=== PATIENT | female | born 1940 | race Caucasian/White ===

== ENCOUNTER 2016-12-03 06:16 | Inpatient (IN) ==
[2016-12-03] MEDS ORDERED: ORPHENADRINE SR 100 MG TABLET PO ONE (07:10)
[2016-12-03] MEDS ORDERED: Oxycodone/Acetaminophen 5/325 1 TAB PO ONE (08:00)
--- NOTE | 2016-12-03 08:01 | XRay Report ---
Indication: Left hip PAIN POST FALL PROCEDURE: XR hip LT min 2V: Encounter: Initial Comparison: None Findings: Mildly impacted fracture of the subcapital left femoral neck. Bony demineralization. No additional acute fracture or dislocation seen. Impression: Closed posttraumatic left femoral neck fracture. .
--- NOTE | 2016-12-03 08:02 | XRay Report ---
Indication: fall with left knee pain PROCEDURE: XR knee LT 3V: Encounter: Initial Comparison: None Findings: There is no acute fracture, dislocation or malalignment identified. Impression: No acute osseous abnormality. .
[2016-12-03] MEDS ORDERED: NS 1,000 ML IV ONE (09:59)
[2016-12-03] MEDS ORDERED: SALINE FLUSH 10ml SYRINGE IVF PRN (09:59)
--- NOTE | 2016-12-03 12:16 | Emergency Department Report ---
Fall HPI - General Chief Complaint: Fall Stated Complaint: fell in bathroom left knee pain - History of Present Illness HPI Narrative: 76-year-old female, fell going into the bathroom. Patient landed on left leg. Unable to stand or bear weight after falling. EMS was contacted and transported her in. Pain is 8 out of 10 if left leg is moved, 4 out of 10 at rest. No previous fracture on that side. - Related Data Home Medications Medication Instructions Recorded Confirmed Cholecalciferol (Vitamin D3) 1 cap PO DAILY #0 03/05/16 12/03/16 [Vitamin D3] Ropinirole HCl 3 tab PO HS #0 tab 03/05/16 12/03/16 Vitamin E (Dl,Tocopheryl Acet) 1 cap PO DAILY #0 03/05/16 12/03/16 [Vitamin E] Previous Rx's Medication Instructions Recorded Tramadol HCl 1 - 2 tab PO Q6H PRN #20 tab 03/05/16 Acetaminophen [Tylenol] 650 mg PO TID tab 12/06/16 Enoxaparin Sodium [Lovenox] 40 mg SQ Q24H 29 Days syringe 12/06/16 Milk of Magnesia [Mom] 30 ml PO DAILY PRN udc 12/06/16 Oxycodone *IR* [Roxicodone *Ir*] 5 mg PO QID PRN #20 tab 12/06/16 PEG 3350 17gm PACKET [Miralax] 17 gm PO DAILY packet 12/06/16 Senna + Docusate [Senna Plus 2 tab PO BID tab 12/06/16 Tablet] Allergies Allergy/AdvReac Type Severity Reaction Status Date / Time No Known Allergies Allergy Verified 12/03/16 06:41 Review of Systems All systems: reviewed and negative except as stated PFSH Patient Stated Medical History Parkinson's Disease Yes Cataracts Yes Other Respiratory Yes: 'CHRONIC COUGH FOR 30 YEARS' Surgical History: Hysterectomy - Social History Smoking status: Never smoker second hand exposure: No Substance use type: does not use Physical Exam - Limitations Limitations: no limitations - General General appearance: alert, in distress (pain if leg is moved. Left leg is externally rotated as patient is lying supine) - Normal Exams: Head:: Normocephalic without trauma Chest/Respirations:: Clear all marinelli, with good airflow, and symmetry bilaterally Cardiovascular:: Regular rate and rhythm, without murmur or gallop, Pulses 2+ all extremities, capillary refill, <2 seconds all extremities Abdomen:: Bowel sounds positive, soft, non-tender, non-distended, no hepatosplenomegaly, masses or bruits noted Neurological:: Patient is alert, and oriented, cranial nerves, motor/sensory/ cerebellar, exams w/o gross deficits, to observation - Expanded Lower Extremity Exam Hip/Pelvis exam: Present: tenderness, external rotation (left) Course Vital Signs Temperature 97.4 F 12/03/16 06:22 Pulse Rate 72 12/03/16 06:22 Respiratory Rate 16 12/03/16 06:22 Blood Pressure 133/60 12/03/16 06:22 Pulse Oximetry 93 12/03/16 06:22 Temperature 96.9 F 12/06/16 12:15 Pulse Rate 84 12/06/16 12:15 Respiratory Rate 16 12/06/16 12:15 Blood Pressure 162/71 H 12/06/16 12:15 Pulse Oximetry 94 12/06/16 12:15 Fall - [facility] Narrative Medical decision making narrative: X-ray of hip and pelvis obtained. Impacted left femoral neck fracture noted. Labs reviewed as well as medical record. Orthopedics contacted and will accept patient for admission. Patient initially did not want any IV medication, wanted to try something very mild. Therefore she was given Norflex 100 mg and Percocet 5 mg tablet. This did not control her pain. She was then given 0.25 mg Dilaudid IV and became much more comfortable. Patient was also given 1 L normal saline fluid resuscitation while in the ED. - Medical Records Attestation: I reviewed the patient's medical records. - Lab Data Attestation: I reviewed the patient's lab results. Result diagrams: 12/06/16 04:04 12/06/16 04:04 Lab Results 12/03/16 12/03/16 12/03/16 Range/Units 09:49 09:49 11:18 WBC 11.4 H (4.5-11.0) T/MM3 RBC 3.82 L (4.00-5.20) M/MM3 Hgb 12.2 (12-16) GM/DL Hct 36.4 (36-46) % MCV 95.3 (80-100) UM3 MCH 31.9 (26-34) UUG MCHC 33.5 (31-37) GM/DL RDW Std Deviation 42.4 (36.9-50.2) FL Plt Count 193 (130-400) T/MM3 MPV 10.7 (9.4-12.4) UM3 Immature Gran % (Auto) 0.2 (0.0-0.5) % Neut % (Auto) 83.9 H (33-66) % Lymph % (Auto) 8.8 L (23-45) % [place] % (Auto) 6.4 (0-9.0) % Eos % (Auto) 0.5 (0-4) % Baso % (Auto) 0.2 (0-2) % Neut # (Auto) 9.6 H (1.8-7.7) T/MM3 Lymph # (Auto) 1.0 (1-4.8) T/MM3 [place] # (Auto) 0.7 (0-0.8) T/MM3 Eos # (Auto) 0.1 (0-0.5) T/MM3 Baso # (Auto) 0.0 (0-0.2) T/MM3 Abs Immat Gran (auto) 0.02 (0.00-0.03) T/MM3 Turbidity < 20 (0-20) Sodium 142 (134-144) MEQ/L Potassium 3.8 (3.6-5) MEQ/L Chloride 109 H (98-107) MEQ/L Carbon Dioxide 23 (22-30) MEQ/L Anion Gap 10 (5-15) MEQ/L BUN 20.0 H (7-17) MG/DL Creatinine 0.6 L (0.7-1.2) MG/DL GFR Calculation 97 BUN/Creatinine Ratio 33 H (6-26) RATIO Glucose 112 H (65-110) MG/DL Calculated Osmolality 277 (261-280) MOSM/KG Calcium 9.2 (8.4-10.2) MG/DL Total Bilirubin 0.90 (0.20-1.30) MG/DL Icterus Index < 2 (0-7) AST 51 H (14-36) U/L ALT 94 H (9-52) U/L Alkaline Phosphatase 142 H (38-126) U/L Total Protein 6.8 (6.3-8.2) G/DL Albumin 3.7 (3.5-5.0) G/DL Globulin 3.1 (2.4-3.6) G/DL Albumin/Globulin Ratio 1.2 (1.1-2.2) RATIO Specimen Hemolysis < 15 (0-25) Ur Collection Type Urine, clean catch Urine Color Yellow (YELLOW) Urine Clarity Clear Urine pH 5.5 (5.0-8.0) Ur Specific [place] >=1.030 H (1.015-1.025) Urine Protein Negative (NEGATIVE) Urine Glucose (UA) Negative (NEGATIVE) Urine Ketones 1+ A (NEGATIVE) Urine Occult Blood Negative (NEGATIVE) Urine Nitrate Negative (NEGATIVE) Urine Bilirubin Negative (NEGATIVE) Urine Urobilinogen 0.2 (NORMAL) EU/DL Ur Leukocyte Esterase Negative (NEGATIVE) Urinalysis Comment Microscopic not ind. - Radiology Data Attestation: I reviewed the patient's radiology results. Disposition Clinical Impression: FEMUR FRACTURE Disposition: 02 To [facility] [place] Care Condition: Stable Time of Disposition: 10:20 - Seen By: physician
[2016-12-03] MEDS ORDERED: HYDROMORPHONE 2 MG/ML INJECTION IVP PRN (13:16)
--- NOTE | 2016-12-03 14:19 | History & Physical Report ---
<Katia Araujo - Last Filed: 12/03/16 14:16> History of Present Illness Date: 12/03/16 Chief complaint: left hip pain HPI: Yari Rae is a 76-year-old woman who lost her balance and fell at approximately 0530 this morning after arriving in the bathroom. She lost her balance, which is not terribly unusual for her given her underlying Parkinson' s. She tends to lose her balance frequently, but hasn't had a fall since last February, which resulted in a left shoulder fracture that did not require surgical fixation. She also has a history of feeling lightheaded and dizzy, but states that this morning she simply lost her balance. She tried grabbing a hold of shelving above the toilet, but this pulled away from the wall and landed on top of her after she fell. She states that she landed on her left hip. She did not lose consciousness. She denies any other injuries from the fall. At first, she did not have much pain, but she was unable to get up or bear any weight on her left hip. Ultimately, her called 911 and she was transported to [facility] emergency department. Here, hip x-ray showed a left hip fracture. Left knee x-ray was negative for acute fracture. CBC revealed mild anemia with a hemoglobin of 12.2. Basic chemistries were unremarkable, however, liver enzymes were mildly elevated. Urinalysis was negative for UTI. Dr. Adair was consulted, and recommended hospital admission and plans for surgery on 12/04. The hospitalist service was also consulted for admission. She was placed into inpatient admission status and is expected that she will require more than 2 nights of hospitalization. Review of systems otherwise was positive for a chronic cough for the last 30 years, and workups have been entirely negative. She states that her right leg, occasionally swells, which is also chronic. She also states she has muscle spasms and cramps in her legs each night, and takes apple cider vinegar along with her ropinirole, which helps control the spasms. The remainder review of systems was negative. Review of Systems - Constitutional Constitutional: Present: weight loss (none recent - lost a few lbs after her right hip replacement and never regained the weight). Absent: fever(s), headache(s) - EENMT Eyes: Absent: change in vision Balance: Absent: falling to one side Nose: Absent: obstruction Mouth/Throat: Absent: sore throat - Cardiovascular Cardiovascular: Absent: chest pain, syncope, dyspnea on exertion, orthopnea Vascular: Absent: unilateral swelling - Respiratory Respiratory: Present: cough (chronic nonproductive cough x 30 years). Absent: dyspnea on exertion - Gastrointestinal Gastrointestinal: Absent: abdominal pain, constipation, diarrhea, nausea, vomiting - Genitourinary Genitourinary: Absent: dysuria, urinary frequency, urinary urgency - Musculoskeletal Musculoskeletal: Present: abnormal gait (loses balance easily due to Parkinson's ), muscle cramps (b/l legs especially at night) - Integumentary/Breasts Integumentary: Absent: rash, wounds - Neurological Neurological: Present: abnormal gait, dizziness, restless legs. Absent: abnormal speech, frequent falls, paresthesias - Psychiatric Psychiatric: Absent: anxiety - Endocrine Endocrine: Absent: palpitations - Hematologic/Lymphatic Hematologic/Lymphatic: Absent: easy bruising (used to bruise easily but that has improved) - Allergic/Immunologic Allergic/Immunologic: Absent: seasonal rhinorrhea PFSH Parkinson's Restless leg syndrome. Low blood pressure. Chronic cough. Surgical History: Right hip replacement (04/2014) in [place]. Uterine surgery for endometriosis and appendectomy in 1965. D&C Family History: Father of emphysema, but was not a smoker. Her mother of old age at age 89 Sister of brain cancer at age 83. Brother is still living with stomach cancer, age 88. Another sister is still alive at age 81, and she has osteoarthritis - Social History Smoking status: Never smoker Substance use type: does not use Alcohol intake frequency: holidays/special occasions only (wine) Housing: other (independent living at [facility]) Household members: spouse Current occupational status: retired Previous occupational history: accounting, book keeping Current residence: Independent Living Social history: Primary care physician: Dr. Werner Barahona Medications Home Medications Medication Instructions Recorded Confirmed Type Cholecalciferol (Vitamin D3) 1 cap PO DAILY #0 03/05/16 12/03/16 History [Vitamin D3] Ropinirole HCl 3 tab PO HS #0 tab 03/05/16 12/03/16 History Vitamin E (Dl,Tocopheryl Acet) 1 cap PO DAILY #0 03/05/16 12/03/16 History [Vitamin E] Allergies Allergy/AdvReac Type Severity Reaction Status Date / Time No Known Allergies Allergy Verified 12/03/16 06:41 Exam Vital Signs: Temperature 97.4 F 12/03/16 06:22 Pulse Rate 86 12/03/16 13:30 Respiratory Rate 18 12/03/16 10:15 Blood Pressure 156/71 H 12/03/16 13:30 Pulse Oximetry 95 12/03/16 13:00 - Constitutional Present: mild distress, well nourished, well developed, thin - Routine HEENT Exam Head: Present: normocephalic Eye: Present: PERRL. Absent: conjunctival icterus, scleral injection ENT: Present: mucous membranes moist, oropharynx clear - Routine Neck Exam Present: supple - Routine Respiratory Exam Present: CTA bilaterally - Routine Cardiovascular Exam Present: RRR, S1, S2 - Routine Abdominal Exam Present: soft, normoactive bowel sounds, non distended, non tender - Routine Extremities Exam Present: no edema, pulses intact, normal capillary refill Comments: limited ROM left hip b/l thigh muscle spasms - Routine Skin Exam Present: intact, dry - Routine Neurological Exam Present: alert, oriented X3, CN II-XII intact - Routine Psychiatric Exam Present: normal thought process, cooperative Results - Labs CBC & Chem 7: 12/03/16 09:49 12/03/16 09:49 - Imaging and Cardiology left hip x-ray Status: image reviewed by me (impacted left femoral neck fx) left knee x-ray Status: image reviewed by me (negative) Assessment and Plan (1) Closed subcapital fracture of left femur Current visit: Yes Status: Acute DVT Prophylaxis: SCD's, Lovenox Resuscitation Status: Do Not Resuscitate Assessment and Plan: Assessment. Left subcapital hip fracture status post fall. Mild normocytic anemia. Elevated liver enzymes, present on admission. Parkinson's. Restless leg syndrome. Low blood pressure, chronic. Chronic cough. Plan. Admit to inpatient status under the hospitalist service. Dr. Adair has been consulted and plans on surgical fixation tomorrow. Diet: Regular, nothing by mouth at midnight. Prophylaxis: SCDs, and will give Lovenox today 1. Will need to resume Lovenox postoperatively. Pain control: Dilaudid low-dose. Patient reports she is very sensitive to pain medication and anesthesia. She has difficulty waking up after surgery. Insert Askew catheter secondary to severe hip pain. Remove as soon as possible. Will obtain chest x-ray and EKG preoperatively. Contacted Dr. Barahona's office, and labs have been sent over from June 2016. At that time, hemoglobin was 12.8, chemistries were stable, TIBC was 312, serum iron was 113 and iron saturation was 36%, serum ferritin was 183. Liver enzymes were not done since she has moved to [place] 2 years ago. Advanced directives: Riccardo is DPOA; she does have a living will; CODE STATUS was discussed and she requests DO NOT RESUSCITATE status. Discharge plans: She would like to stay in [place] and go back to [facility] for her rehabilitation. Discussed with ED physician, Dr. Pizano, Dr. Adair, Dr. Smith, and nursing staff. Hospital Course Summary Disclaimer: The visit summary below is not to be considered part of the above Progress Note. Hospital Course: Assessment. Left subcapital hip fracture status post fall. Mild normocytic anemia. Elevated liver enzymes, present on admission. Parkinson's. Restless leg syndrome. Low blood pressure, chronic. Chronic cough. Plan. Admit to inpatient status under the hospitalist service. Dr. Adair has been consulted and plans on surgical fixation tomorrow. Diet: Regular, nothing by mouth at midnight. Prophylaxis: SCDs, and will give Lovenox today 1. Will need to resume Lovenox postoperatively. Pain control: Dilaudid low-dose. Patient reports she is very sensitive to pain medication and anesthesia. She has difficulty waking up after surgery. Insert Askew catheter secondary to severe hip pain. Remove as soon as possible. Will obtain chest x-ray and EKG preoperatively. Contacted Dr. Barahona's office, and labs have been sent over from June 2016. At that time, hemoglobin was 12.8, chemistries were stable, TIBC was 312, serum iron was 113 and iron saturation was 36%, serum ferritin was 183. Liver enzymes were not done since she has moved to [place] 2 years ago. Advanced directives: Riccardo is DPOA; she does have a living will; CODE STATUS was discussed and she requests DO NOT RESUSCITATE status. Discharge plans: She would like to stay in [place] and go back to [facility] for her rehabilitation. Discussed with ED physician, Dr. Pizano, Dr. Adair, Dr. Smith, and nursing staff. <SarahSharon - Last Filed: 12/03/16 16:35> History of Present Illness Date: 12/03/16 Exam Vital Signs: Temperature 97.4 F 12/03/16 06:22 Pulse Rate 86 12/03/16 13:30 Respiratory Rate 18 12/03/16 10:15 Blood Pressure 156/71 H 12/03/16 13:30 Pulse Oximetry 95 12/03/16 13:00 Results - Labs CBC & Chem 7: 12/03/16 09:49 12/03/16 09:49 Assessment and Plan (1) Closed subcapital fracture of left femur Current visit: Yes Status: Acute Assessment and Plan: I have independently evaluated and examined this patient. I reviewed the chart, the patient's history, and the PULP COOKER/PA's documented findings as above. We discussed and formulated the assessment and plan as above with additions as below: Mrs. Rae had fall from standing as described above after losing her balance when up to the bathroom early this morning. She is not aware of any injuries other than the left hip. She's having significant spasms in her left leg and describes spasms as bigger issue than pain. She's had several past falls which she attributes to combination of Parkinson's disease and low blood pressure. Interestingly she reports that Parkinson's only affects her right arm and right leg. Examination demonstrates the patient to be alert and in no distress at the time of my assessment. She has minor tremor at rest involving the right hand and increased muscle tone with cogwheeling with repetitive movements of the right wrist. Cogwheeling was not present at the left wrist. Respirations are nonlabored with clear breath sounds although air flow is diminished. Cardiac rhythm regular with normal S1 and S2 Abdomen soft Ankles without edema Sensation intact 4 extremities and patient is able to wiggle toes and both legs EKG reviewed by myself demonstrating incomplete right bundle branch block but no acute ST/T-wave changes X-rays of the left knee, pelvis, and left hip have been reviewed by myself demonstrating an impacted subcapital left femoral neck fracture and constipation. Chest x-ray has also been reviewed by myself and is unremarkable other than old humeral head deformity on the left. Minor elevation of transaminases as noted-outpatient labs reviewed from June of this year did not include liver enzymes so no baseline for comparison. Medically stable for surgical repair of left hip. Continue medications for Parkinson/restless leg syndrome in addition to medications for pain/nausea. Initiate IV fluids. Discussed with Dr. Pizano. Hospital Course Summary Disclaimer: The visit summary below is not to be considered part of the above Progress Note.
[2016-12-03] MEDS ORDERED: ENOXAPARIN 40 MG/0.4 ML INJECTION SQ ONE ×2 (14:43→15:12)
--- NOTE | 2016-12-03 15:31 | Orthopedic Consult Note ---
Orthopedic Consultation HPI - Consultation Info Consult Date: 12/03/16 Attending Physician: Fay Adair MD Consult Reason: fracture (Left hip) - History of Present Illness Mrs. Rae is a 76 year old female with Parkinson's who fell this AM while walking to the restroom. She denies hitting her head. She had immediate left hip pain and was unable to bear weight. EMS transported her to [facility] ER where x- rays showed a left hip subcapital femoral neck fracture. She was admitted to the hospitalist service. Dr. Adair was consulted for definitive surgical management and is planning an endoprosthesis 12/04/16. She had walked independently, but stated she was fairly reliant on hanging on to her . Review of Systems - Constitutional Constitutional: Absent: headache(s) - EENT Eyes: Absent: blurry vision Ears, nose, mouth, throat: Absent: head injury - Cardiovascular Cardiovascular: Absent: chest pain Vascular: Absent: pallor of an extermity - Respiratory Respiratory: Absent: cough - Gastrointestinal Gastrointestinal: Absent: abdominal pain - Genitourinary Genitourinary General: Absent: chills, fever(s) - Musculoskeletal Musculoskeletal: Present: joint pain, other Additional comments: she has a know right leg length discrepancy secondary to a previous right hip fracture. - Integumentary/Breasts Integumentary: Absent: wounds - Neurological Neurological: Present: frequent falls Comments: has Parkinson's and often trips. - Endocrine Endocrine: Present: cold intolerance [facility] Surgical History: Right hip replacement (04/2014) in [place]. Uterine surgery for endometriosis and appendectomy in 1965. D&C - Social History Smoking status: Never smoker Current residence: Independent Living Medications Home Medications Medication Instructions Recorded Confirmed Type Cholecalciferol (Vitamin D3) 1 cap PO DAILY #0 03/05/16 12/03/16 History [Vitamin D3] Ropinirole HCl 3 tab PO HS #0 tab 03/05/16 12/03/16 History Vitamin E (Dl,Tocopheryl Acet) 1 cap PO DAILY #0 03/05/16 12/03/16 History [Vitamin E] Allergies Allergy/AdvReac Type Severity Reaction Status Date / Time No Known Allergies Allergy Verified 12/03/16 06:41 Orthopedic Exam Vital signs: Temperature 97.4 F 12/03/16 06:22 Pulse Rate 86 12/03/16 13:30 Respiratory Rate 18 12/03/16 10:15 Blood Pressure 156/71 H 12/03/16 13:30 Pulse Oximetry 95 12/03/16 13:00 - Constitutional General Appearance: Present: alert, orientated x3, thin - Respiratory Exam Present: non-labored - Cardiovascular Exam Present: pedal pulses intact Capillary Refill: < 2-3 Seconds - Abdominal Exam Absent: tenderness - Extremities Exam Present: no edema, pulses intact, normal capillary refill - Hip Exam left Hip Exam: Present: tender over trochanter, decreased ROM (felxion), decreased ROM (rotation), painful PROM - Integumentary Exam Present: pink, warm, dry, intact - Lymphatic Lymphatic: Absent: lymphedema - Neurological Exam Present: intact to light touch, no deficits - Psychiatric Exam Present: alert, oriented - Labs Result Diagrams: 12/03/16 09:49 12/03/16 09:49 Impression and Recommendation (1) Closed subcapital fracture of left femur Current visit: Yes Qualifiers: Encounter type: initial encounter Qualified Code(s): S72.012A - Unspecified intracapsular fracture of left femur, initial encounter for closed fracture Status: Acute May eat tonight. NPO after midnight Left hip endoprosthesis planned for 12/04/[address] Adair Consent to be signed Risks and benefits of the recommended procedure were discussed with the patient and/or patient's legal benefits representative. They include: infection, nerve damage, artery damage, stroke, IN, PE, DVT, ileus, continued pain, or risk that the injury may not heal despite surgery. There are also medical risks of anesthesia. Risks are not limited to the above mentioned alone. Possibility of leg length discrepancy was discussed. Hospital Course Summary Disclaimer: The visit summary below is not to be considered part of the above Progress Note. Hospital Course: Assessment. Left subcapital hip fracture status post fall. Mild normocytic anemia. Elevated liver enzymes, present on admission. Parkinson's. Restless leg syndrome. Low blood pressure, chronic. Chronic cough. Plan. Admit to inpatient status under the hospitalist service. Dr. Adair has been consulted and plans on surgical fixation tomorrow. Diet: Regular, nothing by mouth at midnight. Prophylaxis: SCDs, and will give Lovenox today 1. Will need to resume Lovenox postoperatively. Pain control: Dilaudid low-dose. Patient reports she is very sensitive to pain medication and anesthesia. She has difficulty waking up after surgery. Insert Askew catheter secondary to severe hip pain. Remove as soon as possible. Will obtain chest x-ray and EKG preoperatively. Contacted Dr. Barahona's office, and labs have been sent over from June 2016. At that time, hemoglobin was 12.8, chemistries were stable, TIBC was 312, serum iron was 113 and iron saturation was 36%, serum ferritin was 183. Liver enzymes were not done since she has moved to [place] 2 years ago. Advanced directives: Riccardo is DPOA; she does have a living will; CODE STATUS was discussed and she requests DO NOT RESUSCITATE status. Discharge plans: She would like to stay in [place] and go back to [facility] for her rehabilitation. Discussed with ED physician, Dr. Pizano, Dr. Adair, Dr. Smith, and nursing staff.
[2016-12-03] MEDS ORDERED: CEFAZOLIN 1 G INJECTION IVP ONE (15:41)
[2016-12-03] MEDS ORDERED: NOZIN NASAL SWAB NAS ONE (15:41)
[2016-12-03] MEDS ORDERED: TRANEXAMIC ACID 1,000 MG in NS 100 ML IV ONE (15:41)
--- NOTE | 2016-12-03 15:45 | XRay Report ---
Indication: preop PROCEDURE: XR chest 1V: Encounter: Initial Comparison: March 05, 2016 Findings: The lungs are stable in appearance without new focal airspace consolidation. Chronic increased interstitial markings. There is no pleural effusion or pneumothorax. The heart size, pulmonary vascularity and mediastinal contours are unchanged. Chronic appearing left humeral head deformity. IMPRESSION: Stable appearance of the chest without acute cardiopulmonary disease. .
[2016-12-03] MEDS ORDERED: TRAMADOL 50 MG TABLET PO PRN (16:18)
--- NOTE | 2016-12-03 16:20 | XRay Report ---
Indication: pre op, hip fracture PROCEDURE: XR pelvis 1-2V: Encounter: Initial Comparison: Left hip radiographs from earlier today. Findings: Increasing displacement of the subcapital left femoral neck fracture with superior migration of the distal fracture fragment. Right hip prosthesis. Impression: Increased displacement of the left femoral neck fracture. .
[2016-12-03] MEDS ORDERED: Oxycodone/Acetaminophen 5/325 1 TAB PO PRN (16:31)
[2016-12-03] MEDS: NS with KCL 20 mEq 1,000 ML IV SCH (18:15)
[2016-12-03] MEDS: HYDROMORPHONE 2 MG/ML INJECTION IVP PRN ×3 (18:29→21:32)
[2016-12-03] MEDS: ROPINIROLE 3 MG TABLET PO SCH (21:49)
[2016-12-04] MEDS: ONDANSETRON 4 MG/2 ML INJECTION IVP PRN (07:14)
[2016-12-04] MEDS: NS with KCL 20 mEq 1,000 ML IV SCH (07:14)
[2016-12-04] MEDS: HYDROMORPHONE 2 MG/ML INJECTION IVP PRN (07:51)
[2016-12-04] MEDS ORDERED: SENNA + DOCUSATE TABLET PO SCH (09:00)
[2016-12-04] MEDS: LR 1,000 ML IV SCH ×3 (10:17→14:49)
[2016-12-04] MEDS: POLYETHYL GLYCOL 3350 17gm PACKET PO SCH (10:40)
[2016-12-04] MEDS: SENNA + DOCUSATE TABLET PO SCH ×2 (10:40→20:32)
[2016-12-04] MEDS ORDERED: EPINEPHrine 0.25 MG, BUPIVACAINE 0.25% PF 30 ML, MORPHINE SULFATE 15 MG in NS 30 ML OPSITE ONE (11:43)
--- NOTE | 2016-12-04 11:50 | Anesthesia Preoperative Report ---
Anesthesia Preoperative Record - Date and Time Date: 12/04/16 Preoperative Diagnosis: hip fx Proposed Procedure: left hip endoprosthesis NPO Since Date: 12/03/16 NPO Since Time: 23:00 Allergies/Adverse Reactions: Allergies Allergy/AdvReac Type Severity Reaction Status Date / Time No Known Allergies Allergy Verified 12/03/16 06:41 - Vital Signs Vital Signs: Temperature 98.7 F 12/04/16 10:05 Pulse Rate 94 12/04/16 10:05 Respiratory Rate 14 12/04/16 10:05 Blood Pressure 114/59 12/04/16 10:05 Pulse Oximetry 95 12/04/16 10:05 - Medications Inpatient Medications: Current Medications Hydromorphone HCl (Dilaudid) 0.2 - 0.4 mg IVP Q3H PRN PRN Reason: Pain Last Admin: 12/04/16 07:51 Dose: 0.4 mg Potassium Chloride/Sodium Chloride (Ns With Kcl 20 Meq) 1,000 mls @ 75 mls/hr IV .[id number] [facility] Last Infusion: 12/04/16 09:53 Dose: 0 mls/hr Lactated Ringer's (Lactated Ringers) 1,000 mls @ 50 mls/hr IV .Q20H ANNA Last Admin: 12/04/16 10:17 Dose: 50 mls/hr Epinephrine HCl 0.25 mg/Bupivacaine HCl 30 ml/Morphine Sulfate 15 mg/ Sodium Chloride 63.25 mls @ 1 mls/hr OPSITE INTRAOP ONE PRN Reason: Protocol Stop: 12/07/16 02:57 Ondansetron HCl (Zofran) 4 mg IVP Q6H PRN PRN Reason: Nausea &/or vomiting Last Admin: 12/04/16 07:14 Dose: 4 mg Oxycodone/Acetaminophen (Percocet 5/325) 1 tab PO Q4H PRN PRN Reason: Pain Polyethylene Glycol (Miralax) 17 gm PO DAILY [facility] Last Admin: 12/04/16 10:40 Dose: Not Given Ropinirole HCl (Requip) 3 mg PO HS [facility] Last Admin: 12/03/16 21:49 Dose: 3 mg Senna/Docusate Sodium (Senna Plus Tablet) 2 tab PO BID [facility] Last Admin: 12/04/16 10:40 Dose: Not Given Sodium Chloride (Iv Flush) 10 - 80 ml IVF PRN PRN PRN Reason: Flushing Last Admin: 12/03/16 10:10 Dose: 10 ml Tramadol HCl (Ultram) 50 - 100 mg PO Q6H PRN PRN Reason: P Home Medications: Home Medications Medication Instructions Recorded Confirmed Type Cholecalciferol (Vitamin D3) 1 cap PO DAILY #0 03/05/16 12/03/16 History [Vitamin D3] Ropinirole HCl 3 tab PO HS #0 tab 03/05/16 12/03/16 History Vitamin E (Dl,Tocopheryl Acet) 1 cap PO DAILY #0 03/05/16 12/03/16 History [Vitamin E] - Medical History Respiratory: Reports: Other (chronic cough for years ) Neuro/Musculoskeletal: Reports: Other (parkinisons, restless legs ) - Surgical History GI Surgery/Treatments: Reports: Appendectomy, Cholecystectomy Musculoskeletal Surgery/Tx: Reports: Total Hip Replacement ('BALL WAS REPLACED IN MY RIGHT HIP'), Other (FX' LEFT SHOULDER RIGHT UNDERNEATH') Reproductive Surgery/Treatment: Reports: Dilation and Curettage Anesthesia Reactions: Other (takes awhile to wake up ) Hx Family Anesthesia Reaction: No - Social History Smoking Status: Never smoker - Pertinent Findings Laboratory: CBC and BMP 12/04/16 04:00 12/04/16 04:00 BMP 12/04/16 04:00 Sodium 140 Potassium 4.4 Chloride 110 H Carbon Dioxide 23 BUN 23.0 H Creatinine 0.7 Glucose 113 H Calcium 8.9 EKG: Sinus Rhythm - Physical Exam Respiratory Exam: Present: lungs clear, bilateral breath sounds equal Cardiovascular Exam: Present: regular rate and rhythm, no murmur - Airway Assessment Mallampati Score: I TMD: 3 Fingerbreadths Neck Extension: good Overall Assessment: no airway concerns - ASA ASA Score: 2 - Discussion Discussion: Discussed risks/options/alternatives of anesthesia and questions answered. Patient consents. Nursing pain assessment noted. Attestation Statement: Prior to the delivery of any anesthetic medication, I examined the patient, developed the plan, obtained the patient's consent and discussed the risk and benefits of the procedure with the patient/guardian.
[2016-12-04] MEDS ORDERED: MIDAZOLAM 2mg/2ml INJECTION IVP ONE (11:51)
[2016-12-04] MEDS ORDERED: VANCOMYCIN 1,000 MG INJECTION ONE (11:53)
[2016-12-04] MEDS ORDERED: PROPOFOL 20 ML ONE ×2 (12:01→12:16)
[2016-12-04] MEDS ORDERED: FentaNYL 250 MCG/5 ML INJECTION ONE (12:01)
[2016-12-04] MEDS ORDERED: ROCURONIUM 50 MG/5 ML INJECTION IVP ONE (12:01)
[2016-12-04] MEDS ORDERED: KETAMINE 500 MG/10 ML INJECTION ONE (12:02)
[2016-12-04] MEDS ORDERED: LIDOCAINE 2% JELLY Tube 30ml ONE (12:03)
[2016-12-04] MEDS ORDERED: METOCLOPRAMIDE 10mg/2ml INJECTION ONE (12:19)
[2016-12-04] MEDS ORDERED: DEXAMETHASONE 4 MG/ML INJECTION ONE (12:19)
[2016-12-04] MEDS ORDERED: EPHEDRINE 50mg/ml INJECTION ONE ×2 (12:24→12:56)
[2016-12-04] MEDS ORDERED: FentaNYL 100 MCG/2 ML INJECTION ONE (12:41)
[2016-12-04] MEDS ORDERED: VANCOMYCIN 1,000 MG INJECTION IAR ONE (12:45)
[2016-12-04] MEDS ORDERED: TRANEXAMIC ACID 1,000 MG in NS 100 ML IV ONE (12:45)
[2016-12-04] MEDS ORDERED: PHENYLEPHRINE INJ 10 MG/ML VIAL IV ONE (13:00)
--- NOTE | 2016-12-04 13:21 | Operative Note ---
- Procedure Side: left Preoperative Diagnosis: displaced subcapital femoral hip fx Postoperative Diagnosis: Same as preoperative diagnosis. Operation: hip hemiarthroplasty Surgeon: Satya Adair MD Manager Intern: Frank Nieves Complications: None. Estimated Blood Loss: See Anesthesia Record. Fluids: Please see Anesthesia Record. Description of Procedure: Mrs. lamin chun and her left hip were identified and marked in the preoperative holding area. She is brought back to the operating suite and she is placed under general anesthesia. She is positioned in lateral decubitus position with her left side up on a well-padded table. The left lower extremity was prepped and draped in my normal sterile fashion. Timeout was performed. A posterior approach was utilized. Incision was approximately 9 cm. The muscle fascia was split in line with skin incision. The short external rotators were detached and a capsulotomy performed. Fascia hematoma was evacuated and a femoral neck osteotomy was performed. The head and neck pieces were removed and the head measured on the back table. We trialed with a 46 head and this felt good. The proximal femur was prepared with reaming and then broaching to a size 9 and a cemented 9 stem was placed and allowed to cure the proper rotation. We then trialed with a standard head and this gave good stability and good leg length. After thorough irrigation the final standard 46 mm head was placed and a final reduction performed. The capsulotomy was repaired with #1 Ethibond. Joint cocktail was injected throughout the soft tissues. The muscle fascia was repaired with #1 Vicryl. The subcutaneous tissue was repaired with 2-0 Vicryl followed by running 4-0 Monocryl and Dermabond and a sterile dressing. She was then placed back into a supine position and allowed to awake from general anesthesia and then taken to the recovery room under the care of anesthesia she tolerated procedure well and there were no complications.
--- NOTE | 2016-12-04 14:56 | Anesthesia Postoperative Note ---
- Date and Time Date: 12/04/16 Time: 14:15 - Status Patient Participated in Evaluation: Patient Sedated Vital Signs: Temperature 96.9 F 12/04/16 13:36 Pulse Rate 103 H 12/04/16 14:50 Respiratory Rate 13 12/04/16 14:50 Blood Pressure 133/55 12/04/16 14:50 Pulse Oximetry 97 12/04/16 14:50 Respiratory Function: Airway Patent Cardiovascular Function: Regular Pulse EKG: Sinus Rhythm Mental Status: Lethargic Pain Intensity: 0 Hydration: IV Infusing Complications During Recover: None Apparent - Follow-Up Instructions Instructions: Per Surgeon
--- NOTE | 2016-12-04 15:10 | XRay Report ---
Indication: postop x-ray PROCEDURE: XR pelvis w/ 1 view LT hip: Encounter: Initial Comparison: Radiographs dated December 03, 2016 Findings: Postoperative changes of left femoral head replacement are seen. There is expected postoperative subcutaneous gas. No evidence of hardware failure or acute fracture. No retained radiopaque surgical instruments or sponges seen. Existing right hip prosthesis is stable. Impression: New left femoral head prosthesis without evidence of immediate complication. .
[2016-12-04] MEDS ORDERED: SENNA + DOCUSATE TABLET PO PRN (15:51)
[2016-12-04] MEDS ORDERED: NOZIN NASAL SWAB NAS ONE (15:51)
--- NOTE | 2016-12-04 16:44 | Anesthesia Postoperative Note ---
- Date and Time Date: 12/04/16 Time: 16:25 - Status Patient Participated in Evaluation: Patient Participated in Person Vital Signs: Temperature 95.9 F L 12/04/16 15:50 Pulse Rate 105 H 12/04/16 16:34 Respiratory Rate 16 12/04/16 15:50 Blood Pressure 142/66 H 12/04/16 16:34 Pulse Oximetry 98 12/04/16 16:34 Respiratory Function: Airway Patent Cardiovascular Function: Regular Pulse EKG: Sinus Rhythm Mental Status: Alert and Oriented Pain Intensity: 2 Hydration: IV Infusing Complications During Recover: None Apparent - Follow-Up Instructions Instructions: Per Surgeon
[2016-12-04] MEDS: NOZIN NASAL SWAB NAS SCH ×2 (17:00→23:52)
--- NOTE | 2016-12-04 17:56 | Progress Note ---
<Katia Araujo Tk - Last Filed: 12/04/16 17:53> Subjective: Yari was seen postop and was still drowsy. She easily awakened and conversed appropriately. She feels like she is standing upright, yet is lying flat in bed. She states that she often feels this way with Tramadol (which she's been taking at night since February). This sensation is frightening because she feels like she's going to fall. She denies any hip pain. No difficulty breathing. She denies nausea and has been able to sip water without problems. Objective Vital signs: Temperature 95.9 F L 12/04/16 15:50 Pulse Rate 105 H 12/04/16 17:05 Respiratory Rate 18 12/04/16 17:05 Blood Pressure 136/69 12/04/16 17:05 Pulse Oximetry 96 12/04/16 17:05 - Constitutional Present: no acute distress, well nourished, well developed, thin - Routine HEENT Exam Head: Present: normocephalic Eye: Present: scleral injection (slightly; both eyes are very watery) ENT: Present: mucous membranes dry - Routine Respiratory Exam Present: CTA bilaterally - Routine Cardiovascular Exam Present: RRR, S1, S2 - Routine Abdominal Exam Present: soft, normoactive bowel sounds, non tender - Routine Extremities Exam Present: no edema, pulses intact Comments: ice bag applied to left hip - Routine Musculoskeletal Exam Musculoskeletal: Present: no clubbing or cyanosis - Routine Skin Exam Present: dry, warm - Routine Neurological Exam Present: alert, oriented X3. Absent: tremors (none noted at time of exam - yesterday she had tremors of the right hand) - Routine Psychiatric Exam Present: cooperative Results - Labs CBC & Chem 7: 12/04/16 04:00 12/04/16 04:00 Assessment and Plan (1) Closed subcapital fracture of left femur Current visit: Yes Status: Acute DVT Prophylaxis: Lovenox Resuscitation Status: Do Not Resuscitate Assessment and Plan: Impression Left hip hemiarthroplasty 12/04/[address] Adair Left subcapital hip fracture status post fall. Mild normocytic anemia. Elevated liver enzymes, present on admission. Parkinson's. Restless leg syndrome. Low blood pressure, chronic. Chronic cough. Plan She is having visual-spacial disorientation with Tramadol - we discussed trying a different pain medication and she was agreeable. Will try [place] and monitor response. Anticipate PT/OT evaluation tomorrow. Consult Dr. Barnes due to fragility fracture. Leukocytosis - resolved today. Hgb decreased slightly to 11.9 - anticipate further drop over the next 48 hrs. Chemistry panel is stable. Recheck LFTs tomorrow am. Mildly tachycardic postop; normotensive. Hospital Course Summary Disclaimer: The visit summary below is not to be considered part of the above Progress Note. Hospital Course: Assessment. Left subcapital hip fracture status post fall. Mild normocytic anemia. Elevated liver enzymes, present on admission. Parkinson's. Restless leg syndrome. Low blood pressure, chronic. Chronic cough. Plan. Admit to inpatient status under the hospitalist service. Dr. Adair has been consulted and plans on surgical fixation tomorrow. Diet: Regular, nothing by mouth at midnight. Prophylaxis: SCDs, and will give Lovenox today 1. Will need to resume Lovenox postoperatively. Pain control: Dilaudid low-dose. Patient reports she is very sensitive to pain medication and anesthesia. She has difficulty waking up after surgery. Insert Askew catheter secondary to severe hip pain. Remove as soon as possible. Will obtain chest x-ray and EKG preoperatively. Contacted Dr. Barahona's office, and labs have been sent over from June 2016. At that time, hemoglobin was 12.8, chemistries were stable, TIBC was 312, serum iron was 113 and iron saturation was 36%, serum ferritin was 183. Liver enzymes were not done since she has moved to [place] 2 years ago. Advanced directives: Riccardo is DPOA; she does have a living will; CODE STATUS was discussed and she requests DO NOT RESUSCITATE status. Discharge plans: She would like to stay in [place] and go back to [facility] for her rehabilitation. 12/04/16 - OP DAY She is having visual-spacial disorientation with Tramadol - we discussed trying a different pain medication and she was agreeable. Will try [place] and monitor response. Anticipate PT/OT evaluation tomorrow. Consult Dr. Barnes due to fragility fracture. Leukocytosis - resolved today. Hgb decreased slightly to 11.9 - anticipate further drop over the next 48 hrs. Chemistry panel is stable. Recheck LFTs tomorrow am. <Sharon Smith - Last Filed: 12/04/16 19:53> Objective Vital signs: Temperature 95.9 F L 12/04/16 15:50 Pulse Rate 84 12/04/16 18:35 Respiratory Rate 18 12/04/16 17:05 Blood Pressure 132/64 12/04/16 18:35 Pulse Oximetry 90 12/04/16 18:35 Results - Labs CBC & Chem 7: 12/04/16 04:00 12/04/16 04:00 Assessment and Plan (1) Closed subcapital fracture of left femur Current visit: Yes Status: Acute Assessment and Plan: I have independently evaluated and examined this patient. I reviewed the chart, the patient's history, and the INSULATION SUPERVISOR/PA's documented findings as above. We discussed and formulated the assessment and plan as above with additions as below: Mrs. Rae was seen shortly after returning from the operating room. She was groggy but able to tell me she was not having any pain or dyspnea. She reported minor discomfort overnight. Drowsy but in no distress Respirations nonlabored, good airflow Cardiac rhythm regular Postop x-ray of pelvis demonstrates left (and right) hemiarthroplasty with good positioning by my review. Hemoglobin 12.2-11.9, continue to monitor, electrolytes stable. Continue fluids, urine concentrated on presentation. Anticipate prison at [facility]. Hospital Course Summary Disclaimer: The visit summary below is not to be considered part of the above Progress Note.
[2016-12-04] MEDS ORDERED: HYDROCODONE/APAP 5mg/325mg TABLET PO PRN (18:02)
[2016-12-04] MEDS ORDERED: CEFAZOLIN 1 G INJECTION IVP SCH (20:00)
[2016-12-04] MEDS: CEFAZOLIN 1 G in NS 100 ML IV SCH (20:29)
[2016-12-04] MEDS: ENOXAPARIN 40 MG/0.4 ML INJECTION SQ SCH (20:30)
[2016-12-04] MEDS: ROPINIROLE 3 MG TABLET PO SCH (20:31)
[2016-12-05] MEDS: NS with KCL 20 mEq 1,000 ML IV SCH ×2 (03:26→17:41)
[2016-12-05] MEDS: ACETAMINOPHEN 325 MG TABLET PO PRN ×2 (03:50→15:28)
[2016-12-05] MEDS: CEFAZOLIN 1 G in NS 100 ML IV SCH (03:51)
--- NOTE | 2016-12-05 08:46 | Orthopedic Progress Note ---
Date: Subjective/Severity of Illness: Yari is doing well. Pain has been elevated when getting up with PT, but she has also had some hallucinations with pain meds. Pain meds were switched to [place] via the hospitalist team yesterday. No new complaints. She denies chest pain, SOB or calf pain. Orthopedic Objective PO Vital signs: Temperature 97.9 F 12/05/16 03:03 Pulse Rate 90 12/05/16 03:03 Respiratory Rate 16 12/05/16 03:03 Blood Pressure 110/61 12/05/16 03:03 Pulse Oximetry 97 12/05/16 03:03 - Constitutional General Appearance: Present: alert, orientated x3, thin - Respiratory Exam Present: non-labored - Cardiovascular Exam Present: pedal pulses intact - Abdominal Exam Absent: tenderness - Hip Exam Comments: internal rotation of bilateral feet noted; and Yari can correct it with AROM. - Surgical Site Incision: clean, dry, intact, Mepilex dressing intact, dressing intact - Integumentary Exam Present: pink, warm, dry, intact - Lymphatic Lymphatic: Absent: lymphedema - Neurological Exam Present: intact to light touch, no deficits - Psychiatric Exam Present: alert, oriented - Labs Result Diagrams: 12/05/16 04:03 12/05/16 04:03 Abnormal lab results 12/05/16 12/05/16 Range/Units 04:03 04:03 RBC 3.30 L (4.00-5.20) M/MM3 Hgb 10.6 L (12-16) GM/DL Hct 31.6 L D (36-46) % Neut % (Auto) 76.2 H (33-66) % Lymph % (Auto) 12.2 L (23-45) % [place] % (Auto) 11.3 H (0-9.0) % Neut # (Auto) 8.1 H (1.8-7.7) T/MM3 [place] # (Auto) 1.2 H (0-0.8) T/MM3 Chloride 111 H (98-107) MEQ/L Anion Gap 4 L (5-15) MEQ/L BUN 20.0 H (7-17) MG/DL Creatinine 0.6 L (0.7-1.2) MG/DL BUN/Creatinine Ratio 33 H (6-26) RATIO Glucose 120 H (65-110) MG/DL AST 85 H D (14-36) U/L ALT 75 H (9-52) U/L Total Protein 5.8 L (6.3-8.2) G/DL Albumin 2.9 L (3.5-5.0) G/DL Albumin/Globulin Ratio 1.0 L (1.1-2.2) RATIO H & H 12/04/16 12/05/16 Range/Units 04:00 04:03 Hgb 11.9 L 10.6 L (12-16) GM/DL Hct 35.8 L 31.6 L D (36-46) % Orthopedic Assessment and Plan (1) Closed subcapital fracture of left femur Status: Acute Qualifiers: Encounter type: initial encounter Qualified Code(s): S72.012A - Unspecified intracapsular fracture of left femur, initial encounter for closed fracture Assessment and Plan: Up with PT/OT resident care manager for D/C plan continue pain and bowel management Lovenox 40mg SQ Q day for 30 days for DVT prevention - Anticoagulation Therapy Anticoagulation: Lovenox 40 mg SQ Daily x 30 days from day of surgery Hospital Course Summary Disclaimer: The visit summary below is not to be considered part of the above Progress Note. Hospital Course: Assessment. Left subcapital hip fracture status post fall. Mild normocytic anemia. Elevated liver enzymes, present on admission. Parkinson's. Restless leg syndrome. Low blood pressure, chronic. Chronic cough. Plan. Admit to inpatient status under the hospitalist service. Dr. Adair has been consulted and plans on surgical fixation tomorrow. Diet: Regular, nothing by mouth at midnight. Prophylaxis: SCDs, and will give Lovenox today 1. Will need to resume Lovenox postoperatively. Pain control: Dilaudid low-dose. Patient reports she is very sensitive to pain medication and anesthesia. She has difficulty waking up after surgery. Insert Askew catheter secondary to severe hip pain. Remove as soon as possible. Will obtain chest x-ray and EKG preoperatively. Contacted Dr. Barahona's office, and labs have been sent over from June 2016. At that time, hemoglobin was 12.8, chemistries were stable, TIBC was 312, serum iron was 113 and iron saturation was 36%, serum ferritin was 183. Liver enzymes were not done since she has moved to [place] 2 years ago. Advanced directives: Riccardo is DPOA; she does have a living will; CODE STATUS was discussed and she requests DO NOT RESUSCITATE status. Discharge plans: She would like to stay in [place] and go back to [facility] for her rehabilitation. 12/04/16 - OP DAY She is having visual-spacial disorientation with Tramadol - we discussed trying a different pain medication and she was agreeable. Will try [place] and monitor response. Anticipate PT/OT evaluation tomorrow. Consult Dr. Barnes due to fragility fracture. Leukocytosis - resolved today. Hgb decreased slightly to 11.9 - anticipate further drop over the next 48 hrs. Chemistry panel is stable. Recheck LFTs tomorrow am.
[2016-12-05] MEDS: NOZIN NASAL SWAB NAS SCH ×3 (09:33→21:12)
[2016-12-05] MEDS: SENNA + DOCUSATE TABLET PO SCH ×2 (09:34→20:53)
[2016-12-05] MEDS: POLYETHYL GLYCOL 3350 17gm PACKET PO SCH (09:34)
--- NOTE | 2016-12-05 11:25 | Progress Note ---
<Deyanira Pathak - Last Filed: 12/05/16 11:07> Subjective: Patient is seen sitting in her chair with family present. She has no complaints at this time. She reports she only has pain when she is up and moving. She states she was taking the tramadol to help her sleep at night. This was changed to [place] yesterday due to visual side effects she was having with the tramadol. She reports that she has similar side effects, however, with the [place] as well, but maybe not quite as significant. Doesn't have much of an appetite at this point. Objective Vital signs: Temperature 98.3 F 12/05/16 09:16 Pulse Rate 71 12/05/16 10:00 Respiratory Rate 12 12/05/16 09:16 Blood Pressure 104/52 12/05/16 09:16 Pulse Oximetry 96 12/05/16 09:16 - Constitutional Present: no acute distress, well nourished, well developed - Routine Respiratory Exam Present: CTA bilaterally. Absent: wheezes - Routine Cardiovascular Exam Present: RRR, S1, S2. Absent: murmur - Routine Abdominal Exam Present: soft, non distended. Absent: tenderness - Routine Extremities Exam Present: no edema, normal capillary refill - Routine Skin Exam Present: dry, warm - Routine Neurological Exam Present: alert, oriented X3 - Routine Lymphatic Exam Lymphatic: Absent: adenopathy - Routine Psychiatric Exam Present: normal affect, normal thought process, cooperative Results - Labs CBC & Chem 7: 12/05/16 04:03 12/05/16 04:03 Assessment and Plan (1) Closed subcapital fracture of left femur Current visit: Yes Status: Acute Assessment and Plan: Impression Left hip hemiarthroplasty 12/04/[address] Adair Left subcapital hip fracture status post fall. Postop blood loss anemia Mild normocytic anemia. Elevated liver enzymes, present on admission. Parkinson's. Restless leg syndrome. Low blood pressure, chronic. Chronic cough. Vitamin D deficiency Plan Continue to follow blood counts for postop blood loss anemia. Initiate bladder retraining. Liver enzymes mildly elevated with no significant change from 2 days ago. Will continue to monitor. There is no documentation from her PCPs office of her having liver enzymes checked since she's been seeing him last year. This could be chronic for her. Resume home vitamin D for her vitamin D deficiency. Continue bowel motivation and incentive spirometry. Hospital Course Summary Disclaimer: The visit summary below is not to be considered part of the above Progress Note. Hospital Course: Assessment. Left subcapital hip fracture status post fall. Mild normocytic anemia. Elevated liver enzymes, present on admission. Parkinson's. Restless leg syndrome. Low blood pressure, chronic. Chronic cough. Plan. Admit to inpatient status under the hospitalist service. Dr. Adair has been consulted and plans on surgical fixation tomorrow. Diet: Regular, nothing by mouth at midnight. Prophylaxis: SCDs, and will give Lovenox today 1. Will need to resume Lovenox postoperatively. Pain control: Dilaudid low-dose. Patient reports she is very sensitive to pain medication and anesthesia. She has difficulty waking up after surgery. Insert Askew catheter secondary to severe hip pain. Remove as soon as possible. Will obtain chest x-ray and EKG preoperatively. Contacted Dr. Barahona's office, and labs have been sent over from June 2016. At that time, hemoglobin was 12.8, chemistries were stable, TIBC was 312, serum iron was 113 and iron saturation was 36%, serum ferritin was 183. Liver enzymes were not done since she has moved to [place] 2 years ago. Advanced directives: Riccardo is DPOA; she does have a living will; CODE STATUS was discussed and she requests DO NOT RESUSCITATE status. Discharge plans: She would like to stay in [place] and go back to [facility] for her rehabilitation. 12/04/16 - OP DAY She is having visual-spacial disorientation with Tramadol - we discussed trying a different pain medication and she was agreeable. Will try [place] and monitor response. Anticipate PT/OT evaluation tomorrow. Consult Dr. Barnes due to fragility fracture. Leukocytosis - resolved today. Hgb decreased slightly to 11.9 - anticipate further drop over the next 48 hrs. Chemistry panel is stable. Recheck LFTs tomorrow am. 12/05/16 -postop day #1 Continue to follow blood counts for postop blood loss anemia. Initiate bladder retraining. Liver enzymes mildly elevated with no significant change from 2 days ago. Will continue to monitor. There is no documentation from her PCPs office of her having liver enzymes checked since she's been seeing him last year. This could be chronic for her. Resume home vitamin D for her vitamin D deficiency. Continue bowel motivation and incentive spirometry. <SarahSharon L - Last Filed: 12/05/16 20:30> Objective Vital signs: Temperature 99.5 F 12/05/16 16:36 Pulse Rate 89 12/05/16 16:36 Respiratory Rate 16 12/05/16 16:36 Blood Pressure 116/52 12/05/16 16:36 Pulse Oximetry 92 12/05/16 16:36 Results - Labs CBC & Chem 7: 12/05/16 04:03 12/05/16 04:03 Assessment and Plan (1) Closed subcapital fracture of left femur Current visit: Yes Status: Acute DVT Prophylaxis: Lovenox Resuscitation Status: Do Not Resuscitate Assessment and Plan: I have independently evaluated and examined this patient. I reviewed the chart, the patient's history, and the CANDLEMAKING LABORER/PA's documented findings as above. We discussed and formulated the assessment and plan as above with additions as below: Mrs. Rae was able to walk to the bathroom and back to the chair today and reports pain is not bad. She asked if she could try Tylenol for pain control due to side effects with other medications. She would like to use tramadol at bedtime if nothing else and has tolerated one tablet tramadol daily without difficulty. She denied dyspnea and has not yet had a bowel movement. Fragile appearing female, alert Respirations nonlabored, good airflow, breath sounds clear Regular rhythm Abdomen soft Minor drop hemoglobin Tylenol 650 mg 3 times a day for pain control-scheduled Resume tramadol 50 mg twice a day when necessary, suspect patient will take daily at bedtime as she did prior to hospitalization to help with management of restless legs. Orphenadrine for muscle cramps twice a day when necessary. Discontinue [place]. Percocet available if needed. Continuous MiraLAX/Senokot. Hospital Course Summary Disclaimer: The visit summary below is not to be considered part of the above Progress Note.
[2016-12-05] MEDS ORDERED: ORPHENADRINE SR 100 MG TABLET PO PRN (16:34)
[2016-12-05] MEDS ORDERED: TRAMADOL 50 MG TABLET PO PRN (16:36)
[2016-12-05] MEDS: ROPINIROLE 3 MG TABLET PO SCH (20:26)
[2016-12-05] MEDS ORDERED: CYCLOBENZAPRINE 5 MG TABLET PO PRN (20:35)
[2016-12-05] MEDS: ACETAMINOPHEN 325 MG TABLET PO SCH (20:53)
[2016-12-05] MEDS: ENOXAPARIN 40 MG/0.4 ML INJECTION SQ SCH (20:54)
[2016-12-05] MEDS: ONDANSETRON 4 MG/2 ML INJECTION IVP PRN (23:14)
[2016-12-06] MEDS: NOZIN NASAL SWAB NAS SCH ×2 (01:24→08:20)
[2016-12-06] MEDS: NS with KCL 20 mEq 1,000 ML IV SCH ×2 (01:24→08:15)
[2016-12-06] MEDS ORDERED: CYCLOBENZAPRINE 5 MG TABLET PO PRN (06:45)
[2016-12-06 07:44] VITALS: O2SAT 94
[2016-12-06] MEDS: POLYETHYL GLYCOL 3350 17gm PACKET PO SCH (08:20)
[2016-12-06] MEDS: SENNA + DOCUSATE TABLET PO SCH (08:21)
[2016-12-06] MEDS: ACETAMINOPHEN 325 MG TABLET PO SCH (08:21)
--- NOTE | 2016-12-06 10:48 | Orthopedic Progress Note ---
Date: Subjective/Severity of Illness: Yari is doing okay. She didn't sleep well last night due to RLS. She describes a reoccurring dream about falling and breaking her hip. She has been hallucinating with some of the narcotic pain meds. Hospitalist is adjusting them accordingly. She denies chest pain or shortness of breath. She has been mobilizing well. Hospitalist has plans to discharge today. Orthopedic Objective PO Vital signs: Temperature 98.2 F 12/06/16 07:44 Pulse Rate 85 12/06/16 07:44 Respiratory Rate 18 12/06/16 07:44 Blood Pressure 153/103 H 12/06/16 07:44 Pulse Oximetry 94 12/06/16 07:44 - Constitutional General Appearance: Present: alert, orientated x3, thin - Respiratory Exam Present: non-labored - Cardiovascular Exam Present: pedal pulses intact - Abdominal Exam Absent: tenderness - Surgical Site Incision: clean, dry, intact, Mepilex dressing intact, dressing intact - Integumentary Exam Present: pink, warm, dry, intact - Lymphatic Lymphatic: Absent: adenopathy - Neurological Exam Present: intact to light touch, no deficits - Psychiatric Exam Present: alert, oriented - Labs Result Diagrams: 12/06/16 04:04 12/06/16 04:04 Abnormal lab results 12/06/16 12/06/16 12/06/16 Range/Units 04:04 04:04 06:28 RBC 3.22 L (4.00-5.20) M/MM3 Hgb 10.2 L (12-16) GM/DL Hct 30.8 L (36-46) % Neut % (Auto) 74.4 H (33-66) % Lymph % (Auto) 14.5 L (23-45) % [place] % (Auto) 10.4 H (0-9.0) % [place] # (Auto) 1.0 H (0-0.8) T/MM3 Chloride 109 H (98-107) MEQ/L BUN 18.0 H (7-17) MG/DL Creatinine 0.5 L (0.7-1.2) MG/DL BUN/Creatinine Ratio 36 H (6-26) RATIO Urine Ketones 1+ A (NEGATIVE) Urine Occult Blood 3+ A (NEGATIVE) Urine RBC 10-20 H (0-3) /HPF Urine Bacteria 2+ H (NEGATIVE) H & H 12/04/16 12/05/16 12/06/16 Range/Units 04:00 04:03 04:04 Hgb 11.9 L 10.6 L 10.2 L (12-16) GM/DL Hct 35.8 L 31.6 L D 30.8 L (36-46) % Orthopedic Assessment and Plan (1) Closed subcapital fracture of left femur Status: Acute Qualifiers: Encounter type: initial encounter Qualified Code(s): S72.012A - Unspecified intracapsular fracture of left femur, initial encounter for closed fracture Assessment and Plan: Up with PT/OT healthcare project manager for D/C plan continue pain and bowel management Lovenox 40mg SQ Q day for 30 days for DVT prevention Follow up in 2 weeks with Frank FUENTES or Dr. Adair - Anticoagulation Therapy Anticoagulation: Lovenox 40 mg SQ Daily x 30 days from day of surgery Hospital Course Summary Disclaimer: The visit summary below is not to be considered part of the above Progress Note. Hospital Course: Assessment. Left subcapital hip fracture status post fall. Mild normocytic anemia. Elevated liver enzymes, present on admission. Parkinson's. Restless leg syndrome. Low blood pressure, chronic. Chronic cough. Plan. Admit to inpatient status under the hospitalist service. Dr. Adair has been consulted and plans on surgical fixation tomorrow. Diet: Regular, nothing by mouth at midnight. Prophylaxis: SCDs, and will give Lovenox today 1. Will need to resume Lovenox postoperatively. Pain control: Dilaudid low-dose. Patient reports she is very sensitive to pain medication and anesthesia. She has difficulty waking up after surgery. Insert Askew catheter secondary to severe hip pain. Remove as soon as possible. Will obtain chest x-ray and EKG preoperatively. Contacted Dr. Barahona's office, and labs have been sent over from June 2016. At that time, hemoglobin was 12.8, chemistries were stable, TIBC was 312, serum iron was 113 and iron saturation was 36%, serum ferritin was 183. Liver enzymes were not done since she has moved to [place] 2 years ago. Advanced directives: Riccardo is DPOA; she does have a living will; CODE STATUS was discussed and she requests DO NOT RESUSCITATE status. Discharge plans: She would like to stay in [place] and go back to [facility] for her rehabilitation. 12/04/16 - OP DAY She is having visual-spacial disorientation with Tramadol - we discussed trying a different pain medication and she was agreeable. Will try [place] and monitor response. Anticipate PT/OT evaluation tomorrow. Consult Dr. Barnes due to fragility fracture. Leukocytosis - resolved today. Hgb decreased slightly to 11.9 - anticipate further drop over the next 48 hrs. Chemistry panel is stable. Recheck LFTs tomorrow am. 12/05/16 -postop day #1 Continue to follow blood counts for postop blood loss anemia. Initiate bladder retraining. Liver enzymes mildly elevated with no significant change from 2 days ago. Will continue to monitor. There is no documentation from her PCPs office of her having liver enzymes checked since she's been seeing him last year. This could be chronic for her. Resume home vitamin D for her vitamin D deficiency. Continue bowel motivation and incentive spirometry.
--- NOTE | 2016-12-06 11:10 | Discharge Summary ---
<Katia Araujo Tk - Last Filed: 12/06/16 11:24> Discharge Information Date of admission: 12/03/16 12:51 Anticipated date of discharge: 12/06/16 Attending Physician: Sharon Smith MD Primary care physician: Tory Barahona MD Consults: Ted Adair Charles C - Discharge Diagnosis (1) Closed subcapital fracture of left femur Status: Acute - Procedures Procedures: Left hip hemiarthroplasty on 12/04/16, Dr. Adair - Laboratory Labs: 12/06/16 04:04 12/06/16 04:04 - Radiology Radiology: Initial left hip and pelvic x-rays showed left femoral neck fracture. Postop left hip x-ray - femoral head prosthesis without hardware failure or fracture; no retained surgical instrument/sponges. Left knee x-ray was negative. History of Present Illness HPI: Yari Rae is a 76-year-old woman who lost her balance and fell at approximately 0530 this morning after arriving in the bathroom. She lost her balance, which is not terribly unusual for her given her underlying Parkinson' s. She tends to lose her balance frequently, but hasn't had a fall since last February, which resulted in a left shoulder fracture that did not require surgical fixation. She also has a history of feeling lightheaded and dizzy, but states that this morning she simply lost her balance. She tried grabbing a hold of shelving above the toilet, but this pulled away from the wall and landed on top of her after she fell. She states that she landed on her left hip. She did not lose consciousness. She denies any other injuries from the fall. At first, she did not have much pain, but she was unable to get up or bear any weight on her left hip. Ultimately, her called 911 and she was transported to [facility] emergency department. Here, hip x-ray showed a left hip fracture. Left knee x-ray was negative for acute fracture. CBC revealed mild anemia with a hemoglobin of 12.2. Basic chemistries were unremarkable, however, liver enzymes were mildly elevated. Urinalysis was negative for UTI. Dr. Adair was consulted, and recommended hospital admission and plans for surgery on 12/04. The hospitalist service was also consulted for admission. She was placed into inpatient admission status and is expected that she will require more than 2 nights of hospitalization. Review of systems otherwise was positive for a chronic cough for the last 30 years, and workups have been entirely negative. She states that her right leg, occasionally swells, which is also chronic. She also states she has muscle spasms and cramps in her legs each night, and takes apple cider vinegar along with her ropinirole, which helps control the spasms. The remainder review of systems was negative. Objective Vital signs: Temperature 98.2 F 12/06/16 07:44 Pulse Rate 85 12/06/16 07:44 Respiratory Rate 18 12/06/16 07:44 Blood Pressure 153/103 H 12/06/16 07:44 Pulse Oximetry 94 12/06/16 07:44 - Constitutional Present: no acute distress, thin - Routine HEENT Exam Eye: Absent: conjunctival icterus ENT: Present: oropharynx clear - Routine Respiratory Exam Present: CTA bilaterally - Routine Cardiovascular Exam Present: RRR, S1, S2 - Routine Abdominal Exam Present: soft, normoactive bowel sounds, non tender - Routine Extremities Exam Present: edema (trace edema LLE) - Routine Skin Exam Present: dry, pallor, warm - Routine Neurological Exam Present: CN II-XII intact. Absent: alert (drowsy; slurs speech occasionally and drifts off into a light sleep. When she is awake and alert she does not slur her speech.), facial asymmetry - Routine Psychiatric Exam Present: cooperative Hospital Course This is a general summary of the patient's hospital course. For more details refer to the complete medical record. Hospital course: Assessment. Left subcapital hip fracture status post fall. Mild normocytic anemia. Elevated liver enzymes, present on admission. Parkinson's. Restless leg syndrome. Low blood pressure, chronic. Chronic cough. Plan. Mrs. Rae was admitted under the hospitalist service on 12/03/16. She was cleared for surgery, though it was noted that she had mildly elevated liver enzymes on admission as well as mild normocytic anemia. Dr. Adair was consulted and took her to the OR suite on 12/04/16 for left femoral head replacement. She was started on Lovenox postoperatively for VTE prophylaxis, and orthopedic service is recommending a [address] Barnes was consulted for metabolic bone consultation but was unavailable - recommend f/u with Dr. Barahona for osteoporosis w/u and treatment. Labs were monitored daily. Hemoglobin decreased , as expected, to 10.2 on day discharge. Chemistries remained stable. AST and ALT actually increased on repeat labs, though alkaline phosphatase decreased, and this will need to be followed in the outpatient setting. Askew catheter was discontinued prior to discharge. Patient had adverse reactions to narcotics. She had been taking tramadol at home to help her sleep, and she even describes some visual spatial disorientation with this medication. We discussed minimizing the use of narcotics, and scheduled Tylenol to help with pain control - LFTs will need to be monitored very closely since she is on scheduled Tylenol. Rx for oxycodone IR and Tramadol were given at discharge. She also had significant difficulty sleeping, and the night before discharge, hardly slept at all. She was drowsy but appropriate, and understood discharge instructions, which were also provided to her Riccardo. Her bowels hadn't moved. By the time of discharge, her appetite was poor. We will continue her on senna plus, MiraLAX, as well as PRN medications. Recommend to repeat CBC and CMP on . Follow-up with Dr. Barahona within a week. She was discharged to [facility]. DVT Prophylaxis: Lovenox Discharge Plan - Med Rec/Dispo Referrals/Follow Up: Tory Barahona MD [Family Provider] - 1 Week (f/u on ABLA and elevated LFTs) Ted Adair MD [Physician] - 2 Weeks Truv Instructions: [facility] Ortho Postop Instructions Prescriptions: New Acetaminophen [Tylenol] 650 mg PO TID tablet Enoxaparin Sodium [Lovenox] 40 mg SQ Q24H 29 Days syringe Oxycodone *IR* [Roxicodone *Ir*] 5 mg PO QID #20 tab PEG 3350 17gm PACKET [Miralax] 17 gm PO DAILY packet Milk of Magnesia [Mom] 30 ml PO DAILY PRN udc PRN Reason: Constipation Senna + Docusate [Senna Plus Tablet] 2 tab PO BID tablet Continue Ropinirole HCl 3 tab PO HS #0 tab Cholecalciferol (Vitamin D3) [Vitamin D3] 1 cap PO DAILY #0 Vitamin E (Dl,Tocopheryl Acet) [Vitamin E] 1 cap PO DAILY #0 Tramadol HCl 1 - 2 tab PO Q6H PRN #20 tab PRN Reason: PAIN - Disposition 03 To SNU Not [facility] (SNF) <Sharon Smith - Last Filed: 12/06/16 13:28> Discharge Information Date of admission: 12/03/16 12:51 - Discharge Diagnosis (1) Closed subcapital fracture of left femur Status: Acute - Laboratory Labs: 12/06/16 04:04 12/06/16 04:04 Objective Vital signs: Temperature 96.9 F 12/06/16 12:15 Pulse Rate 84 12/06/16 12:15 Respiratory Rate 16 12/06/16 12:15 Blood Pressure 162/71 H 12/06/16 12:15 Pulse Oximetry 94 12/06/16 12:15 Hospital Course This is a general summary of the patient's hospital course. For more details refer to the complete medical record. Hospital course: I have independently evaluated and examined this patient. I reviewed the chart, the patient's history, and the SOLDERING MACHINE SETTER/PA's documented findings as above. We discussed and formulated the assessment and plan as above with additions as below: Mrs. Rae continues to have difficulty with leg cramps, primarily at night. She describes minimal pain in her hip however. She had very small stool this morning. Nursing reports she is a little more confused today (spacey) than she has been previously although after being up and moving confusion was better. Patient reports that she's not sleeping well. Examination reveals the patient to be awake, in no acute distress, and slightly confused having trouble staying on one thought at the time although she responds to direct questions appropriately. Respirations are nonlabored and clear breath sounds are clear, cardiac rhythm regular, abdomen is soft, extremities are without edema. Askew catheter is being discontinued. Patient has been accepted for [facility] with bed available today. Stable to transfer at this time. Time spent with patient: greater than 35 minutes
--- NOTE | 2016-12-06 11:30 | Extended Care Facility Orders ---
Admission Orders Admit to:: Alf Allergies/Adverse Reactions: Allergies No Known Allergies Allergy (Verified 12/03/16 06:41) Admitting Diagnosis: Left hip fracture, status post hemiarthroplasty Admitting Physician: Sharon Smith MD Attending Physician: Sharon Smith MD Code Status: Do Not Resuscitate Anticiapted Length of Stay: 30 days or less Rehab Potential: good Rehab Prognosis: good Diet: Regular Diet Evaluations/Treatment: PT, OT Alf Certification: I certify that SNF services are required to be given on an Inpatient basis because of the patient's need for prison care on a continuing basis for the condition(s) for which she received inpatient hospital services prior to her transfer to the SNF. SNF inpatient care is necessary for the following reasons: Indication for Alf: Other (PT/OT) - Additional Information In Event of Arrest: Do Not Start CPR Laboratory/Radiology: Draw CBC (D62) & CMP (R74, R63) on 12/08/[address] Barahona Referrals: Tory Barahona MD [Family Provider] - 1 Week (f/u on ABLA and elevated LFTs) Ted Adair MD [Physician] - 2 Weeks Additional Orders: Patient had a Askew catheter during her hospital stay. Please monitor for signs of urinary retention/UTI.
[2016-12-06 12:15] VITALS: BP 162/71; PULSE 84; RESP 16; TEMP 96.9
== END 2016-12-06 14:45 | DRG 470 ==
LOC: ED 06:16 → SRG 12:51
PROVIDERS: ADMIT Internal Medicine; ATTEND Internal Medicine

== ENCOUNTER 2017-08-05 16:34 | Inpatient (IN) ==
[2017-08-05] MEDS ORDERED: ONDANSETRON 4 MG/2 ML INJECTION IVP ONE (16:45)
[2017-08-05] MEDS ORDERED: MORPHINE SULFATE 4mg INJECTION IVP ONE (16:45)
[2017-08-05] MEDS ORDERED: SALINE FLUSH 10ml SYRINGE IVF PRN (16:45)
--- NOTE | 2017-08-05 16:50 | Emergency Department Report ---
Fall HPI - General Chief Complaint: Fall Stated Complaint: FALL, L HIP PAIN Source: patient, family, EMS, RN notes reviewed, old records reviewed Mode of arrival: EMS Limitations: no limitations - History of Present Illness HPI Narrative: 77yo woman is presented to the ER by EMS for evaluation of right hip pain. Pt has a h/o PD; was trying to get out of a chair earlier today and 'slid down'. Now c/o severe right hip pain that radiates down into her right ankle. Pt has a h/o sacral fx. Pt arrives on a spine board with hip immobilized. Has had 125mcg fentanyl; pain is still 08/02. MD complaint: fall Onset (ago): minute(s) Fall from: chair Fall witnessed: yes, by family Place fall occurred: home Loss of consciousness: none Prolonged down time: no Symptoms prior to fall: other (Parkinson's Disease) Context: tripped/slipped Location of injury - extremities: Right: thigh Severity: severe Severity scale (1-10): 6 Quality: sharp, stabbing Associated symptoms (after fall): denies - Related Data Home Medications Medication Instructions Recorded Confirmed Cholecalciferol (Vitamin D3) 1,000 unit PO Q2D #0 03/05/16 08/05/17 [Vitamin D3] Phytonadione (Vit K1) [Vitamin K] 100 mcg PO Q2D 01/01/17 08/05/17 Ropinirole HCl 0.75 mg PO HS 01/01/17 08/05/17 Selenium 200 mcg PO Q2D 01/01/17 08/05/17 Senna + Docusate [Senna Plus 2 tab PO BID PRN 01/01/17 08/05/17 Tablet] Curcumin 1 tab PO Q2D 08/05/17 08/05/17 Tramadol [Ultram] 50 mg PO HS PRN 08/05/17 08/05/17 Allergies Allergy/AdvReac Type Severity Reaction Status Date / Time No Known Allergies Allergy Verified 08/05/17 17:46 Review of Systems All systems: reviewed and negative except as stated Musculoskeletal: Reports: as per HPI, joint swelling, arthralgia. Denies: back pain, myalgia PFSH Patient Stated Medical History Parkinson's Disease Yes Cataracts Yes Sleep Apnea No Other Respiratory Yes: chronic cough for years Other Musculoskeletal Yes: parkinisons, restless legs Clinic Medical History (Last Reviewed 03/09/17 @ 09:53 by Dayna Pope MD) Tremor (Chronic Medical) Balance disorder (Chronic Medical) Osteoporosis (Chronic Medical) Surgical History: Right hip replacement (04/2014) in [place]. Uterine surgery for endometriosis and appendectomy in 1964. D&C. Lt Hip Fadi A 12-04-16 Family History: Family History (Last Reviewed 03/09/17 @ 09:53 by Dayna Pope MD) Mother Stroke Father Heart attack DVT (deep venous thrombosis) COPD (chronic obstructive pulmonary disease) Sister Brain tumor - Social History Smoking status: Never smoker second hand exposure: No Substance use type: does not use Alcohol intake frequency: holidays/special occasions only Housing: other Household members: spouse Current occupational status: retired Current residence: Apartment/Private Home Physical Exam - Limitations Limitations: no limitations - General General appearance: alert, in no apparent distress - Normal Exams: Head:: Normocephalic without trauma Eyes:: Pupils are PERRLA w/ EOMI, No scleral icterus, irritation, or foreign bodies noted ENMT:: No facial trauma, nasal exudates, pharyngeal erythema, or exudates are noted Neck:: Full range of motion, without adenopathy Chest/Respirations:: Clear all marinelli, with good airflow, and symmetry bilaterally Cardiovascular:: Regular rate and rhythm, without murmur or gallop, Pulses 2+ all extremities, capillary refill, <2 seconds all extremities Lymphatic:: No lymphadenopathy Integumentary:: No rashes, hives, or bruising noted Neurological:: Patient is alert, and oriented Psychiatric:: Patient exhibits, appropriate attention - Expanded Lower Extremity Exam right Hip/Pelvis exam: Present: normal inspection, tenderness, shortening. Absent: full ROM, swelling, abrasion, laceration, ecchymosis, deformity, crepitus, dislocation, erythema, external rotation, internal rotation Course - Consultations Consultation #1: Ortho: May be able to keep pt locally for treatment; may need to send south. Will review with Ortho and call back. Dr. Adair will plan for surgical repair. Requests admission to medicine for pain control and comorbidity management. Time: 17:40 Consultation #2: Thomas Telemed: Will admit pt for pain control and medical comorbidity mgmt. Time: 18:23 Vital Signs Temperature 97.8 F 06/13/18 16:25 Pulse Rate 71 08/05/17 16:25 Respiratory Rate 19 08/05/17 16:25 Blood Pressure 130/90 H 08/05/17 16:25 Pulse Oximetry 97 08/05/17 16:25 Temperature 97.8 F 08/05/17 16:25 Pulse Rate 71 08/05/17 16:25 Respiratory Rate 19 08/05/17 16:25 Blood Pressure 130/90 H 08/05/17 16:25 Pulse Oximetry 97 08/05/17 16:25 Fall - MDM Narrative Medical decision making narrative: After discussion with Ortho PA, Tele-hospitalist will admit for pain control and medical comorbidity mgmt, pending surgical repair with Dr. Adair. - Differential Diagnosis Likely: syncope, compression fracture, concussion without loss of consciousness (Hip fx) - Medical Records Attestation: I reviewed the patient's medical records. - Lab Data Attestation: I reviewed the patient's lab results. Result diagrams: 08/05/17 16:40 08/05/17 16:40 - Radiology Data Attestation: I reviewed the patient's radiology results. CXR: Stable chest. No acute CT pathology. Hip films: Fractured femur, midshaft, with lateral fragments. Overlapping, appears to be due to fx/displacement of proximal/distal fragments. Will obtain CT to confirm. CT Right femur: FINDINGS: Bones/joints: Moderately angulated, mildly laterally displaced and mildly foreshortened (2 cm) right femoral oblique mid diaphyseal (fracture line goes just below the inferior tip of the femoral prosthesis) fracture. There is osteopenia. Total right hip arthroplasty. This causes obscuring metallic artifact in the pelvis. No dislocation. Soft tissues: Unremarkable. IMPRESSION: Moderately angulated right femoral diaphyseal femoral fracture just below the femoral stem component. Disposition Clinical Impression: Parkinson disease Femur fracture, right Qualifiers: Encounter type: initial encounter Femur location: shaft Fracture type: closed Fracture morphology: other fracture Qualified Code(s): S72.391A - Other fracture of shaft of right femur, initial encounter for closed fracture Osteoporosis Qualifiers: Osteoporosis type: age-related Presence of current pathological fracture: with current pathological fracture Encounter type: initial encounter Qualified Code(s ): M80.00XA - Age-related osteoporosis with current pathological fracture, unspecified site, initial encounter for fracture Disposition: C Print Language: Venezuelan Condition: Stable Prescriptions: No Action Cholecalciferol (Vitamin D3) [Vitamin D3] 1,000 unit PO Q2D #0 Phytonadione (Vit K1) [Vitamin K] 100 mcg PO Q2D Ropinirole HCl 0.75 mg PO HS Selenium 200 mcg PO Q2D Curcumin 1 tab PO Q2D Tramadol [Ultram] 50 mg PO HS PRN PRN Reason: Prn Orders Senna + Docusate [Senna Plus Tablet] 2 tab PO BID PRN PRN Reason: Constipation Referrals: Karolyn Barahona MD [Primary Care Provider] - Time of Disposition: 18:38 - Seen By: physician
[2017-08-05] MEDS: MORPHINE SULFATE 10mg/ml INJECTION IV ONE (18:32)
--- NOTE | 2017-08-05 20:10 | History & Physical Report ---
History of Present Illness Date: 08/06/17 Chief complaint: fell with right leg pain HPI: This is a 77 y/o patient with severe Parkinson's ds who is currently being treated with homeopathic medications. The patient has fallen now 4 times in the past 1.5 years. Today she was trying to get up out of chair and fell landing on her right side. Immediate right leg pain. Has previous fx right hip with total joint replacement. The patient has severe osteoporosis. In the ED has a very angulated right mid shaft femur fx. Neuovascular intact per ED. Dr. Adair was gracious enough to take phone call today (not spoon maker) and agreed to repair this fracture tomorrow. The patient has ongoing weakness and gait mobility deficit. The patient is cared for by her who is present in the room. She does not smoke or drink. Metabolic workup in the ED was reassuring. Review of Systems Review of systems: patient is soft spoken and had to provide some information She denies ONTIVEROS, no sore throat no chest pain, no pnd, no orthopnea, no cough, no congestion no abdomen pain, no nausea/vomiting patient has sig movement disorder that affects her right side greater than her left side she has chonic edema to both legs 12 point ROS otherwise negative except for outlined above. Past Medical History Medical History: Medical History (Last Reviewed 03/09/17 @ 09:53 by Dayna Pope MD) Tremor (Chronic) Balance disorder (Chronic) Osteoporosis (Chronic) Surgical History: Right hip replacement (04/2014) in [place]. Uterine surgery for endometriosis and appendectomy in 1964. D&C. Lt Hip Fadi A 12-04-16 Family History: Family History (Last Reviewed 03/09/17 @ 09:53 by Dayna Pope MD) Mother Stroke Father Heart attack DVT (deep venous thrombosis) COPD (chronic obstructive pulmonary disease) Sister Brain tumor Family History: As Above - Social History Smoking status: Never smoker Substance use type: does not use Alcohol intake: never Alcohol intake frequency: does not drink Housing: house Household members: spouse Current occupational status: retired Previous occupational history: consolidation accountant Current residence: Apartment/Private Home Medications Home Medications Medication Instructions Recorded Confirmed Type Cholecalciferol (Vitamin D3) 1,000 unit PO Q2D #0 03/05/16 08/05/17 History [Vitamin D3] Phytonadione (Vit K1) [Vitamin K] 100 mcg PO Q2D 01/01/17 08/05/17 History Ropinirole HCl 0.75 mg PO HS 01/01/17 08/05/17 History Selenium 200 mcg PO Q2D 01/01/17 08/05/17 History Senna + Docusate [Senna Plus 2 tab PO BID PRN 01/01/17 08/05/17 History Tablet] Curcumin 1 tab PO Q2D 08/05/17 08/05/17 History Tramadol [Ultram] 50 mg PO HS PRN 08/05/17 08/05/17 History Allergies Allergy/AdvReac Type Severity Reaction Status Date / Time No Known Allergies Allergy Verified 08/05/17 17:46 Exam Vital Signs: Temperature 97.2 F 08/05/17 19:25 Pulse Rate 64 08/05/17 19:25 Respiratory Rate 12 08/05/17 19:25 Blood Pressure 115/58 08/05/17 19:25 Pulse Oximetry 97 08/05/17 19:25 Telemetry Rhythm: Sinus Rhythm Height/Weight/BMI: Height 1.57 m Weight 44.5 kg Body Mass Index 17.9 - Constitutional Present: moderate distress, thin, cachectic, cooperative - Routine HEENT Exam Head: Present: normocephalic, atraumatic Eye: Present: EOMI ENT: Present: mucous membranes dry - Routine Neck Exam Comments: arthritic with some limitations of motion - Routine Respiratory Exam Present: CTA bilaterally - Routine Cardiovascular Exam Present: RRR, no murmur - Routine Abdominal Exam Present: soft, normoactive bowel sounds, non distended, non tender - Routine Extremities Exam Present: edema Comments: patient with somewhat contracted right upper extremity vs left upper extremity, left leg is contracted currently due to pain and fx, left leg with normal motion - Routine Skin Exam Present: intact - Routine Neurological Exam Present: alert, oriented X3, moving all extremities, vision grossly intact, hearing grossly intact - Routine Psychiatric Exam Present: cooperative Comments: flat affect Results - Labs CBC & Chem 7: 08/06/17 04:18 08/06/17 04:18 Labs: reviewed and will be discussed below Assessment and Plan (1) Femur fracture, right Current visit: Yes Status: Acute (2) Parkinson disease Current visit: Yes Status: Acute (3) Osteoporosis Current visit: Yes Status: Chronic (4) Dehydration Current visit: Yes Status: Acute Assessment and Plan: 1. fx of right mid shaft femur acute POA: Dr. Adair will go to surgery in am. Pre op evaluation would inform mod risk with very limited METS. no chest pain . metabolically intact. No indication for pre op risk stratification currently. NPO after midnight. caldwell. Dr. Adair will order hughes's traction. 2. Parkinson's ds chronic POA: family reports no recent Neurology involvment. currently manage with homeiopathic medications. sig ds right vs left. would most likely require rehab admission at discharge. PT and OT cx r/c after surgery obviously 3. Dehydration acute POA: fluids overnight with caldwell catherer 4. DVT ppx: SCD, defer anticoagulation to surgery DVT Prophylaxis: SCD's Resuscitation Status: Full Code - Time spent with patient Time with patient PN: 35 minutes - Physician Narrative Physician: Jeanette Boothe MD Narrative: Date: 07/24/17 Time: 11 AM-Dr. Boothe I saw and examined patient earlier this morning. I reviewed the H&P above and agree. Please see my additions below. Chief complaint: Fall with right leg fracture History of present illness: Report from telemedicine physician This is a 77 y/o patient with severe Parkinson's ds who is currently being treated with homeopathic medications. The patient has fallen now 4 times in the past 1.5 years. Today she was trying to get up out of chair and fell landing on her right side. Immediate right leg pain. Has previous fx right hip with total joint replacement. The patient has severe osteoporosis. In the ED has a very angulated right mid shaft femur fx. Neuovascular intact per ED. Dr. Adair was gracious enough to take phone call today (not spoon maker) and agreed to repair this fracture tomorrow. The patient has ongoing weakness and gait mobility deficit. The patient is cared for by her who is present in the room. She does not smoke or drink. Metabolic workup in the ED was reassuring. This morning, the patient states her right leg pain is approximately a 5 on a scale of 1-10. She was just moved to have repeat x-rays obtained prior to surgery. She states that she was getting up out of a chair yesterday and lost her balance, she thinks because of her Parkinson's disease, and fell. She states that other than leg pain, she has no other pain after her fall. She states she did not lose consciousness and did not hit her head. She denies any neck discomfort. She does admit to some occasional lightheadedness with standing but this was not the issue yesterday. She states she has chronic low blood pressure. She denies any difficulties with chest pain, shortness of breath, palpitations. She denies any recent nausea vomiting or diarrhea. She does not think she is constipated. She has had no urinary difficulties. She states her weight has been stable for the past couple of years. She states she's been eating and drinking well recently. She denies any recent acute illnesses and states that she felt fine prior to her fall yesterday. She is denied any recent fevers, chills or sweats. No recent URI symptoms. No dysuria or urinary difficulties. The patient denies any abnormal bleeding. She denies any problems with surgeries in the past other than she "wakes up slow after anesthesia" Past medical history significant for Parkinson's disease, restless legs, chronic low blood pressure, chronic cough for which she is seen 4 physicians without a specific diagnosis. Osteoporosis. Comprehensive review of systems is negative other than the above in history of present illness Past surgical history significant for right hip replacement in 2014 in [place] , uterine surgery for endometriosis in 1964 at which time she had incidental appendectomy, D&C, left hip hemiarthroplasty November 2016, left shoulder surgery with Dr. Adair Family history is reviewed and unchanged other than brother also having stomach cancer. Medications and allergies are reviewed. Social history the patient lives in a [facility] with her . He is her DPOA. She states she wants to be DO NOT RESUSCITATE. She is a nonsmoker nondrinker. Physical exam: Afebrile, O2 sat 95% on room air, blood pressure 120/66, heart rate 87 In general this is a well-developed thin female in no acute distress. HEENT reveals pupils to be equal round and reactive, sclerae are anicteric, oropharynx is moist. Neck is supple without JVD. No bruits. Cardiovascular reveals a regular rate and rhythm without murmur. Chest is clear to auscultation. Abdomen is soft and nontender with positive bowel sounds. Extremities reveal trace pretibial edema which the patient states is chronic. Skin is warm and dry and without rashes. Chest x-ray reveals no acute cardiopulmonary abnormalities. EKG reveals sinus rhythm with possible right ventricular conduction delay and moderate ST depression on EKG read, I do not appreciate any significant depression. Impression Right Periprosthetic distal femur fracture Parkinson's disease Chronic low blood pressure with occasional orthostatic symptoms Acute blood loss anemia Mild elevated transaminases Possible constipation seen on x-ray right hip Restless leg syndrome Plan I think the patient is medically stable for planned surgery later today. I did talk with Hakeem, physician salon assistant for Dr. Adair, and asked him to notify anesthesia that the patient states she "wakes up slow after anesthesia" and has chronic low blood pressure. I did notify him that I thought she was stable for surgery planned for today. He stated that they do have blood on hold to give if needed as she is at increased risk for acute blood loss with the type of fracture she sustained. Monitor hemoglobin closely. Monitor for hypotension Change to DO NOT RESUSCITATE as per patient request. Repeat lab work tomorrow. DVT prophylaxis per ortho Hospital Course Summary Disclaimer: The visit summary below is not to be considered part of the above Progress Note.
--- NOTE | 2017-08-05 20:47 | Orthopedic Consult Note ---
Orthopedic Consultation HPI - Consultation Info Consult Date: 08/06/17 Attending Physician: Jeanette Boothe MD Attending Orthopaedic surgeon: Dr. Giovany MD. Consult Reason: fracture (right periprosthetic femur fracture) - History of Present Illness Mrs. Rae is a 77 year old female who fell earlier 08/05/17 resulting in right leg pain. She was seen in the ER and X-rays identified a right femur periprosthetic hip fracture. She has an endoprosthesis on the right which was completed years ago in [place]. She denies hitting her head, chest pain, abdominal pain, peripheral paraesthesias. She has a known history of multiple falls, at least 4 in the last year and a half, secondary to Parkinson's. She also is known to be osteoporotic. Labs have been reviewed, Hgb has dropped just over [address] Adair is planning an ORIF today and is requesting a type and crossmatch. She denied pain in her leg or hip prior to the fall. Her baseline ambulation is with a walker while outside and independent in the home. Her pain is located in the right thigh. It is worse with activity, better with rest and IV narcotics. Review of Systems - Constitutional Constitutional: Absent: headache(s) - EENT Eyes: Absent: blurry vision Ears, nose, mouth, throat: Absent: headaches - Cardiovascular Cardiovascular: Absent: chest pain Vascular: Present: unilateral swelling (secondary to fracture only) - Respiratory Respiratory: Absent: cough - Gastrointestinal Gastrointestinal: Absent: abdominal pain - Genitourinary Genitourinary General: Present: weakness Genitourinary Female: Absent: dysuria - Musculoskeletal Musculoskeletal: Present: as per HPI, abnormal gait (secondary to Parkinson's ) - Integumentary/Breasts Integumentary: Absent: erythema - Neurological Neurological: Present: abnormal gait. Absent: numbness, paresthesias - Hematologic/Lymphatic Hematologic/Lymphatic: Absent: easy bleeding [facility] Patient Stated Medical History Parkinson's Disease Yes Cataracts Yes: just starting possibly Hypotension Yes Sleep Apnea No Other Respiratory Yes: chronic cough for years Other Musculoskeletal Yes: parkinisons, restless legs Clinic Medical History (Last Reviewed 03/09/17 @ 09:53 by Dayna Pope MD) Tremor (Chronic Medical) Balance disorder (Chronic Medical) Osteoporosis (Chronic Medical) Surgical History: Left hip endoprosthesis also seen on X-ray. Right hip replacement (04/2014) in [place]. Uterine surgery for endometriosis and appendectomy in 1965. D&C. Lt Hip Fadi A 12-04-16 Family History: Family History (Last Reviewed 03/09/17 @ 09:53 by Dayna Pope MD) Mother Stroke Father Heart attack DVT (deep venous thrombosis) COPD (chronic obstructive pulmonary disease) Sister Brain tumor - Social History Smoking status: Never smoker second hand exposure: No Substance use type: does not use Alcohol intake: never Alcohol intake frequency: does not drink Housing: assisted living facility ([facility] Household members: spouse Current occupational status: retired Previous occupational history: senior tax accountant Current residence: Apartment/Private Home Medications Home Medications Medication Instructions Recorded Confirmed Type Cholecalciferol (Vitamin D3) 1,000 unit PO Q2D #0 03/05/16 08/05/17 History [Vitamin D3] Phytonadione (Vit K1) [Vitamin K] 100 mcg PO Q2D 01/01/17 08/05/17 History Ropinirole HCl 0.75 mg PO HS 01/01/17 08/05/17 History Selenium 200 mcg PO Q2D 01/01/17 08/05/17 History Senna + Docusate [Senna Plus 2 tab PO BID PRN 01/01/17 08/05/17 History Tablet] Curcumin 1 tab PO Q2D 08/05/17 08/05/17 History Tramadol [Ultram] 50 mg PO HS PRN 08/05/17 08/05/17 History Allergies Allergy/AdvReac Type Severity Reaction Status Date / Time No Known Allergies Allergy Verified 08/05/17 17:46 Exam - Constitutional Vital Signs: Temperature 97.2 F 08/05/17 19:25 Pulse Rate 64 08/05/17 19:25 Respiratory Rate 16 08/05/17 20:20 Blood Pressure 115/58 08/05/17 19:25 Pulse Oximetry 97 08/05/17 19:25 General: cooperative, no acute distress, frail appearing Nutritional Appearance: thin Orientation: alert (not oriented to time or place.), confused Limitations: altered mental status - Psych Mood: normal Affect: normal Attitude: cooperative - RUE Skin: no rashes or lesions noted Neurological: no deficits Vascular: capillary refill <2 seconds - RLE Postoperative Appearance: extremity compartments are soft and nontender, neurovascullary intact to extremities Skin: no rashes or lesions noted Hip Range of Motion: limited internal rotation, limited external rotation, hip ROM painful Neurological: no deficits Vascular: dorsalis pedis pulse within normal limits, tibialis posterior pulse within normal limits Right Lower Extremity comments: obvious swelling in the right thigh consistent with fracture bleeding. Patient is lying in a knee flexed and internally rotated position. - Respiratory Respiratory Exam: non-labored - Cardiac Cardiovascular exam: pedal pulses intact - Abdominal GI/Abdominal Exam: soft - Labs Result Diagrams: 08/06/17 04:18 08/06/17 04:18 - Diagnostic results Hip x-ray: image reviewed Hip CT: image reviewed Impression and Recommendation (1) Femur fracture, right Current visit: Yes Qualifiers: Encounter type: initial encounter Femur location: shaft Fracture type: closed Fracture morphology: oblique Fracture alignment: displaced Qualified Code(s): S72.331A - Displaced oblique fracture of shaft of right femur , initial encounter for closed fracture Status: Acute This is a periprosthetic fracture that will require ORIF. Dr. Adair is planning surgery for 08/06/17. NPO after midnight Consent to be signed IV narcotics for pain control, SCD's preop and Lovenox post op. hospitalist for medical management. 2 units of PRBC's to be typed and crossed as per Dr. Adair's request in anticipation of surgery today with potential for large blood loss. Risks and benefits of the recommended procedure were discussed with the patient and/or patient's legal product sales representative. They include: infection, nerve damage, artery damage, stroke, [place], PE, DVT, ileus, continued pain, or risk that the injury may not heal despite surgery. There are also medical risks of anesthesia. Risks are not limited to the above mentioned alone. Hospital Course Summary Disclaimer: The visit summary below is not to be considered part of the above Progress Note.
[2017-08-05] MEDS: NS 1,000 ML IV SCH (21:17)
[2017-08-05] MEDS: ROPINIROLE 0.25 MG TABLET PO SCH (21:54)
[2017-08-06] MEDS: MORPHINE SULFATE 4mg INJECTION IVP PRN ×3 (00:17→07:44)
[2017-08-06] MEDS ORDERED: CEFAZOLIN 1 G INJECTION IVP ONE (07:00)
[2017-08-06] MEDS: NS 1,000 ML IV SCH ×3 (07:25→16:56)
[2017-08-06] MEDS: ONDANSETRON 4 MG/2 ML INJECTION IVP PRN ×2 (07:38→18:49)
--- NOTE | 2017-08-06 08:12 | XRay Report ---
Indication: femur fracture PROCEDURE: XR chest 1V: Encounter: Initial Comparison: December 03, 2016 Findings: The lungs are stable in appearance without new focal airspace consolidation. There is no pleural effusion or pneumothorax. The heart size, pulmonary vascularity and mediastinal contours are unchanged. IMPRESSION: Stable appearance of the chest without acute cardiopulmonary disease. .
--- NOTE | 2017-08-06 08:15 | CT Scan Report ---
Indication: Possible femur fx PROCEDURE: CT LE RT wo con: Encounter: Initial Comparison: None Technique: Axial CT images were performed through the right femur without intravenous contrast. Coronal and sagittal two-dimensional reformats. Automated Exposure Control and Iterative Reconstruction dose reducing techniques were utilized. Findings: There is a displaced periprosthetic fracture of the distal femur with anterior displacement of the distal fracture fragment by one shaft width and overriding of the fracture fragments by 4 to 5 cm. Fracture originates just distal to the tip of the femoral stem of the right hip prosthesis. No additional acute fracture. No dislocation. Soft tissues of the pelvis are obscured by metallic artifact from the hip replacements. No obvious intramuscular hematoma. Impression: Posttraumatic periprosthetic distal femoral fracture. There is a preliminary report by virtual radiologic. .
--- NOTE | 2017-08-06 08:17 | XRay Report ---
Indication: Fall PROCEDURE: XR hip RT 1V: Encounter: Initial Comparison: January 30, [address] lower extremity from August 05, 2017 Findings/ Impression: Oblique mildly displaced and angulated fracture of the mid femoral diaphysis with bony overriding. This is a periprosthetic fracture originating near the femoral stem of the hip prosthesis. No additional acute fracture or dislocation noted. .
[2017-08-06] MEDS ORDERED: MORPHINE SULFATE 4mg INJECTION IVP PRN (08:21)
--- NOTE | 2017-08-06 08:43 | XRay Report ---
Indication: AP and lateral PROCEDURE: AP and Lateral views of the Right Femur Encounter: Initial Comparison: CT from yesterday Findings/ Impression: Slight increase in apex anterior angulation of the mid femoral periprosthetic fracture. Continued overriding of the fracture fragments. No new fracture or dislocation. .
[2017-08-06] MEDS: POLYETHYL GLYCOL 3350 17gm PACKET PO SCH (08:58)
--- NOTE | 2017-08-06 10:42 | Anesthesia Preoperative Report ---
Anesthesia Preoperative Record - Date and Time Date: 08/06/17 Preoperative Diagnosis: Fx right femur Proposed Procedure: orif right periprosthetic femur fx NPO Since Date: 08/05/17 NPO Since Time: 23:00 Allergies/Adverse Reactions: Allergies Allergy/AdvReac Type Severity Reaction Status Date / Time No Known Allergies Allergy Verified 08/05/17 17:46 - Vital Signs Vital Signs: Temperature 98.2 F 08/06/17 09:50 Pulse Rate 84 08/06/17 09:50 Respiratory Rate 13 08/06/17 09:50 Blood Pressure 106/55 08/06/17 09:50 Pulse Oximetry 94 08/06/17 09:50 Height and Weight: Height 1.57 m Weight 47 kg Body Mass Index 17.9 - Medications Inpatient Medications: Current Medications Acetaminophen (Tylenol) 500 mg PO Q5H PRN PRN Reason: Discomfort Hydrocodone Bitart/Acetaminophen ([place] 5/325) 1 tab PO Q6H PRN PRN Reason: Pain Sodium Chloride (Normal Saline) 1,000 mls @ 100 mls/hr IV .Q10H ANNA Last Admin: 08/06/17 07:25 Dose: 100 mls/hr Morphine Sulfate (Morphine Sulfate Inj) 2 mg IVP Q2H PRN PRN Reason: Pain Ondansetron HCl (Zofran) 4 mg IVP Q6H PRN PRN Reason: Nausea &/or vomiting Last Admin: 08/06/17 07:38 Dose: 4 mg Polyethylene Glycol (Miralax) 17 gm PO DAILY ANNA Last Admin: 08/06/17 08:58 Dose: Not Given Ropinirole HCl (Requip) 0.75 mg PO HS [facility] Last Admin: 08/05/17 21:54 Dose: 0.75 mg Senna/Docusate Sodium (Senna Plus Tablet) 1 tab PO BID ANNA Sodium Chloride (Iv Flush) 10 - 80 ml IVF PRN PRN PRN Reason: Flushing Last Admin: 08/05/17 18:32 Dose: 10 ml Home Medications: Home Medications Medication Instructions Recorded Confirmed Type Cholecalciferol (Vitamin D3) 1,000 unit PO Q2D #0 03/05/16 08/05/17 History [Vitamin D3] Phytonadione (Vit K1) [Vitamin K] 100 mcg PO Q2D 01/01/17 08/05/17 History Ropinirole HCl 0.75 mg PO HS 01/01/17 08/05/17 History Selenium 200 mcg PO Q2D 01/01/17 08/05/17 History Senna + Docusate [Senna Plus 2 tab PO BID PRN 01/01/17 08/05/17 History Tablet] Curcumin 1 tab PO Q2D 08/05/17 08/05/17 History Tramadol [Ultram] 50 mg PO HS PRN 08/05/17 08/05/17 History - Medical History Respiratory: Reports: Other (chronic cough for years ) DENIES: Sleep Apnea Cardiovascular: Reports: Hypotension Neuro/Musculoskeletal: Reports: Other (parkinisons, restless legs ) - Surgical History GI Surgery/Treatments: Reports: Appendectomy, Cholecystectomy Musculoskeletal Surgery/Tx: Reports: Total Hip Replacement ('BALL WAS REPLACED IN MY RIGHT HIP'), Other (FX' LEFT SHOULDER RIGHT UNDERNEATH') Reproductive Surgery/Treatment: Reports: Dilation and Curettage Anesthesia Reactions: None Hx Family Anesthesia Reaction: No - Social History Smoking Status: Never smoker Second Hand Exposure: No Substance Use Type: does not use Alcohol Intake: never Alcohol Intake Frequency: does not drink - Pertinent Findings Laboratory: CBC and BMP 08/06/17 04:18 08/06/17 04:18 BMP 08/06/17 04:18 Sodium 139 Potassium 4.6 Chloride 106 Carbon Dioxide 24 BUN 24.0 H Creatinine 0.7 Glucose 122 H Calcium 8.5 Liver Function 08/06/17 Range/Units 04:18 Total Bilirubin 0.80 (0.20-1.30) MG/DL AST 39 H (14-36) U/L ALT 38 H (1-35) U/L Alkaline Phosphatase 126 (38-126) U/L Albumin 3.2 L (3.5-5.0) g/dL Urine 08/05/17 Range/Units 21:46 Urine Color Yellow (YELLOW) Urine Clarity Clear Urine pH 6.0 (5.0-8.0) Ur Specific [place] 1.020 (1.015-1.025) Urine Protein Negative (NEGATIVE) Urine Glucose (UA) Negative (NEGATIVE) EKG: Sinus Rhythm - Physical Exam Respiratory Exam: Present: lungs clear, bilateral breath sounds equal Cardiovascular Exam: Present: regular rate and rhythm, no murmur - Airway Assessment Mallampati Score: II TMD: 3 Fingerbreadths Neck Extension: fair Overall Assessment: no airway concerns - ASA ASA Score: 3 - Plan Anesthesia: General TIVA, General Inhalation Gases Regional/Trunk Block: Spinal - Discussion Discussion: Discussed risks/options/alternatives of anesthesia and questions answered. Patient consents. Nursing pain assessment noted. Attestation Statement: Prior to the delivery of any anesthetic medication, I examined the patient, developed the plan, obtained the patient's consent and discussed the risk and benefits of the procedure with the patient/guardian. - Additional Information Seen by Anesthesia: Yes
[2017-08-06] MEDS ORDERED: FentaNYL 250 MCG/5 ML INJECTION ONE (12:53)
[2017-08-06] MEDS ORDERED: LIDOCAINE 2% (100mg/5mL) 5ml PF SDV ONE (12:53)
[2017-08-06] MEDS ORDERED: MIDAZOLAM 2mg/2ml INJECTION ONE (12:53)
[2017-08-06] MEDS ORDERED: PROPOFOL 20 ML ONE (12:53)
[2017-08-06] MEDS ORDERED: BUPIVACAINE 0.25% (2.5mg/ml) PF 30ml INJECTION ONE (12:54)
[2017-08-06] MEDS ORDERED: LIDOCAINE 1% (10mg/ml) 30ml SDV INJ ONE (12:54)
[2017-08-06] MEDS: MORPHINE SULFATE 10mg/ml INJECTION IV ONE (13:09)
[2017-08-06] MEDS ORDERED: KETAMINE 500 MG/10 ML INJECTION ONE (13:10)
[2017-08-06] MEDS ORDERED: LIDOCAINE 2% JELLY Tube 30ml ONE (13:16)
[2017-08-06] MEDS ORDERED: EPHEDRINE 50mg/ml INJECTION ONE (13:56)
[2017-08-06] MEDS ORDERED: HYDROMORPHONE 2 MG/ML INJECTION IVP PRN (15:35)
[2017-08-06] MEDS ORDERED: BUPIV 0.25% 30ml/LIDO 1% 30ml MIXTURE ID ONE (15:42)
--- NOTE | 2017-08-06 16:21 | Anesthesia Postoperative Note ---
- Date and Time Date: 08/06/17 Time: 16:20 - Status Patient Participated in Evaluation: Patient Participated in Person Vital Signs: Temperature 97.0 F 08/06/17 16:15 Pulse Rate 85 08/06/17 16:20 Respiratory Rate 11 08/06/17 16:20 Blood Pressure 111/55 08/06/17 16:20 Pulse Oximetry 97 08/06/17 16:20 Respiratory Function: Airway Patent Cardiovascular Function: Regular Pulse EKG: Sinus Rhythm Mental Status: Alert and Oriented Pain Intensity: 0 Hydration: IV Infusing Complications During Recover: None Apparent - Follow-Up Instructions Instructions: Per Surgeon
--- NOTE | 2017-08-06 16:23 | Remote Fluorsocopy Report ---
Indication: FX PROCEDURE: RF femur RT: Encounter: Initial Comparison: Femur radiographs from today Findings: Nine fluoroscopic spot images are submitted for interpretation. Images show open reduction and internal fixation of the periprosthetic femoral fracture with placement of a lateral side plate with multiple screws and cerclage wires. Improved alignment of the fracture fragments. Impression: Fluoroscopy as above. Fluoroscopy time is 137 seconds. Fluoroscopy dose is 1410 mRad. .
[2017-08-06] MEDS ORDERED: NOZIN NASAL SWAB NAS ONE (16:52)
[2017-08-06] MEDS ORDERED: NS 1,000 ML IV SCH (16:52)
[2017-08-06] MEDS: MORPHINE SULFATE 10mg/ml INJECTION IVP PRN (19:19)
[2017-08-06] MEDS: ACETAMINOPHEN 325 MG TABLET PO PRN (19:35)
[2017-08-06] MEDS: ROPINIROLE 0.25 MG TABLET PO SCH (20:55)
[2017-08-06] MEDS: ENOXAPARIN 40 MG/0.4 ML INJECTION SQ SCH (20:56)
[2017-08-06] MEDS: HYDROCODONE/APAP 5mg/325mg TABLET PO PRN (20:56)
[2017-08-06] MEDS: SENNA + DOCUSATE TABLET PO SCH (20:56)
[2017-08-06] MEDS: CEFAZOLIN 1 G in NS 100 ML IV SCH (21:05)
[2017-08-06] MEDS: NOZIN NASAL SWAB NAS SCH (21:07)
[2017-08-07] MEDS: HYDROCODONE/APAP 5mg/325mg TABLET PO PRN ×4 (03:00→21:05)
[2017-08-07] MEDS: ACETAMINOPHEN 325 MG TABLET PO PRN (04:50)
[2017-08-07] MEDS: NOZIN NASAL SWAB NAS SCH ×3 (05:36→22:09)
[2017-08-07] MEDS: CEFAZOLIN 1 G in NS 100 ML IV SCH (06:20)
[2017-08-07] MEDS: NS 1,000 ML IV SCH ×4 (07:08→22:10)
[2017-08-07] MEDS: MORPHINE SULFATE 10mg/ml INJECTION IVP PRN (07:22)
--- NOTE | 2017-08-07 08:00 | Operative Note ---
DATE 08/06/2017 PREOPERATIVE DIAGNOSIS Right periprosthetic femoral diaphyseal fracture. POSTOPERATIVE DIAGNOSIS Right periprosthetic femoral diaphyseal fracture. PROCEDURE Open reduction internal fixation of right periprosthetic femur fracture. SURGEON Ted Adair MD SERVICE PERSON Jing Snyder APRN COMPLICATIONS None. ANESTHESIA Spinal. EBL 500 ml FLUIDS Please see anesthetic records. TRANSFUSION The patient did receive 1 unit of packed red blood cells during the surgery. COMPLICATIONS None. DESCRIPTION OF PROCEDURE Mrs. Rae and her right leg were identified and marked in the preoperative area. She was brought back to the operating suite and spinal anesthetic was administered. She was then placed in a supine position on the radiolucent table. The right lower extremity was prepped and draped in my normal sterile fashion. Time-out was performed. Fluoroscopic imaging was used throughout the case. A lateral approach to the femur was performed. I started midshaft near the tip of the prosthesis. Sharp dissection was carried through the skin and subcutaneous tissue. The IT band was split in the line of the skin incision and then the muscle fibers of the vastus lateralis were split bluntly. Retractors were placed and the fracture site was identified. There was a long oblique fracture with a butterfly fragment proximally and laterally. I was able to cruz-in the fracture site and hold it in place with a [id number] reduction clamp using traction and a little bit of internal rotation. Once reduced, I placed two 3.5 screws provisionally from anterior to posterior to hold the reduction. I then selected a long locking distal femoral plate. I decided to go all the way to the knee with the distal femoral plate given her history of other fractures and diagnosis of osteoporosis. Once the plate was in proper position, I first placed a cable proximally to hold the plate down to bone. It was centered distally under fluoroscopic control. I then proceeded to place six locking screws distally. I placed three more bicortical screws in the diaphysis distal to the prosthesis and one unicortical screw distal to the prosthesis. I then proceeded to place a total of four cables proximally around the plate at the level of the prosthesis and then I placed four periprosthetic screws in the plate. One of the cables I did place through a cable clemente that was inserted into the plate. The rest were not placed through a cable clemente. All cables were first tightened provisionally and then checked with fluoroscopy before being tightened down one final time and crimped. The butterfly fragment was too small to place the screw in, especially given the prosthesis, so it was just provisionally placed under the plate and the plate held it down securely to the bone. Multiple fluoroscopic images were taken at the conclusion to ensure good hardware placement. The wound was thoroughly irrigated with normal saline. The muscle fascia was closed with 2-0 Vicryl. The IT band was closed with #1 Vicryl. The subcutaneous tissue was closed with 2-0 Vicryl and the skin was closed with bossman. The drapes were removed. A sterile dressing was placed. She was taken back to the recovery room under the care of Anesthesia. She tolerated the procedure well. There were no complications. MITESH
--- NOTE | 2017-08-07 08:14 | Orthopedic Progress Note ---
Date: Date: 08/07/17 Time: 805 Subjective/Severity of Illness: Yari is lying in bed this morning on rounds. Patient is post op day 1 of Right femur periprosthetic fracture ORIF by Dr. Adair. She received 1 unit of PRBC intr op. Hgb 10.0 last night post-op. Hgb 8.5 this morning. She reports her pain has been a 7 at rest and 10 if she moves her leg. She is on [place] with Morphine for breakthrough pain. Reports muscle spasms that keep patient awake and increase her pain. Denies CP, SOA, nausea. Orthopedic Exam Vital signs: Temperature 99 F 08/07/17 07:35 Pulse Rate 97 08/07/17 07:35 Respiratory Rate 16 08/07/17 07:35 Blood Pressure 122/50 08/07/17 07:35 Pulse Oximetry 93 08/07/17 07:35 - Constitutional General Appearance: Present: alert, orientated x3, cooperative, well developed, well nourished - Respiratory Exam Present: non-labored - Cardiovascular Exam Present: pedal pulses intact - Abdominal Exam Present: soft - Extremities Exam Present: edema, pulses intact. Absent: calf tenderness - Dressing Dressing: dry, intact, no drainage Comments: right thigh mepilex - Integumentary Exam Present: pink, warm, dry - Neurological Exam Present: intact to light touch, no deficits - Psychiatric Exam Present: alert - Labs Result Diagrams: 08/07/17 04:39 08/07/17 04:39 Abnormal lab results 08/06/17 08/07/17 08/07/17 Range/Units 20:08 04:39 04:39 RBC 2.71 L (4.00-5.20) M/MM3 Hgb 10.0 L 8.5 L D (12-16) GM/DL Hct 29.8 L 25.4 L D (36-46) % Neut % (Auto) 68.6 H (33-66) % Lymph % (Auto) 19.5 L (23-45) % [place] % (Auto) 11.4 H (0-9.0) % Chloride 110 H (98-107) MEQ/L Creatinine 0.6 L (0.7-1.2) mg/dL BUN/Creatinine Ratio 28 H (6-26) RATIO Glucose 142 H (65-110) MG/DL Calcium 7.6 L D (8.4-10.2) MG/DL Albumin 2.3 L (3.5-5.0) g/dL H & H 08/06/17 08/06/17 08/07/17 Range/Units 04:18 20:08 04:39 Hgb 10.3 L D 10.0 L 8.5 L D (12-16) GM/DL Hct 30.7 L D 29.8 L 25.4 L D (36-46) % Orthopedic Assessment and Plan (1) Femur fracture, right Status: Acute Qualifiers: Encounter type: initial encounter Femur location: shaft Fracture type: closed Fracture morphology: oblique Fracture alignment: displaced Qualified Code(s): S72.331A - Displaced oblique fracture of shaft of right femur , initial encounter for closed fracture Hospital Course Summary Disclaimer: The visit summary below is not to be considered part of the above Progress Note. Hospital Course: Current anti-coagulation protocol with Lovenox 40mg SQ for VTE prophylaxis. SCD's for added protection. Will add Flexeril 10mg TID prn for muscle spasms, improve pain control. Anemia- will recheck Hgb at noon today. PT/OT services to improve independent function. Patient non-weight bearing Right leg, may flat toe touch for transfers to the chair. Discharge Planning per Case Management.
[2017-08-07] MEDS: CYCLOBENZAPRINE 10 MG TABLET PO PRN ×2 (08:27→20:56)
[2017-08-07] MEDS: POLYETHYL GLYCOL 3350 17gm PACKET PO SCH (08:27)
[2017-08-07] MEDS: SENNA + DOCUSATE TABLET PO SCH ×2 (09:21→20:56)
--- NOTE | 2017-08-07 10:43 | Progress Note ---
- Date 08/07/17 Subjective: Yari reports that she didn't sleep well last night because of cramping in her right leg and foot. She frequently has cramping in her foot and usually drinks pickle juice, and didn't have any last night but her brought some in today. She felt nauseated before breakfast but this sensation is fading. She denies SOA or chest pain. She was sitting up in her chair and states that this will be the extent of her activity level today. Objective Vital signs: Temperature 99 F 08/07/17 07:35 Pulse Rate 97 08/07/17 07:35 Respiratory Rate 16 08/07/17 07:35 Blood Pressure 122/50 08/07/17 07:35 Pulse Oximetry 93 08/07/17 09:18 Height/Weight/BMI: Height 1.57 m Weight 50 kg Body Mass Index 17.9 - Constitutional Present: no acute distress, well nourished, well developed, thin - Routine HEENT Exam Head: Present: normocephalic Eye: Present: PERRL. Absent: conjunctival icterus, scleral injection ENT: Present: mucous membranes moist - Routine Respiratory Exam Present: CTA bilaterally - Routine Cardiovascular Exam Present: RRR, S1, S2 - Routine Abdominal Exam Present: soft, normoactive bowel sounds, non distended, non tender - Routine Extremities Exam Present: edema (trace b/l) Comments: dressings to right proximal leg c/d/i - Routine Skin Exam Present: dry, warm - Routine Neurological Exam Present: alert, oriented X3, normal speech - Routine Psychiatric Exam Present: normal affect, normal thought process, cooperative Results - Labs CBC & Chem 7: 08/07/17 12:19 08/07/17 04:39 Assessment and Plan (1) Femur fracture, right Problem details: Periprosthetic fracture Current visit: Yes Status: Acute (2) Parkinson disease Current visit: Yes Status: Acute Assessment and Plan: Assessment Right Periprosthetic distal femur fracture, s/p ORIF on 08/06/17, Dr. Giovany RENTERIA - PRBC transfusion x1 unit 08/06/17 Parkinson's disease Chronic low blood pressure with occasional orthostatic symptoms Mild elevated transaminases Possible constipation seen on x-ray right hip Restless leg syndrome Plan POD #1, hgb 8.5, received 1 unit PRBC intra-op yesterday. Follow hgb closely - may need add'l transfusions. BP stable, occ low readings (chronic). Cont IVF for now. Electrolytes stable. Pain control per ortho - requiring high-risk med IV narcotics to help manage pain. Flexeril added today, in addition to [place]. Per ortho - NWB R leg with flat toe touch for transfers Zofran PRN nausea. DVT Prophylaxis: Lovenox Resuscitation Status: Do Not Resuscitate - Physician Narrative Physician: Sharon Smith MD Narrative: Date: 08/07/17 Time: 1520 I have independently evaluated and examined this patient. I reviewed the chart, the patient's history, and the ELECTRIC STOVE MECHANIC/PA's documented findings as above. We discussed and formulated the assessment and plan as above with additions as below:y Mrs. Rae denies dyspnea but complains of fatigue due to cramping in her legs as described above. She had a small bowel movement overnight. Fatigued-appearing female with generalized pallor. Respirations nonlabored, diminished airflow, breath sounds clear anteriorly. Trace edema, legs/feet hypersensitive to touch. Low-dose Requip added when necessary for cramping in addition to previously ordered medications. Continue to monitor hemoglobin-may require additional blood prior to discharge. Intraoperative films reviewed by myself demonstrating ORIF. Hospital Course Summary Disclaimer: The visit summary below is not to be considered part of the above Progress Note. Hospital Course: 08/05/17 - admission to inpatient status 1. fx of right mid shaft femur acute POA: Dr. Adair will go to surgery in am. Pre op evaluation would inform mod risk with very limited METS. no chest pain . metabolically intact. No indication for pre op risk stratification currently. NPO after midnight. caldwlel. Dr. Adair will order hughes's traction. 2. Parkinson's ds chronic POA: family reports no recent Neurology involvment. currently manage with homeiopathic medications. sig ds right vs left. would most likely require rehab admission at discharge. PT and OT cx r/c after surgery obviously 3. Dehydration acute POA: fluids overnight with caldwell catherer 4. DVT ppx: SCD, defer anticoagulation to surgery 08/06/17 I think the patient is medically stable for planned surgery later today. I did talk with Hakeem, physician front desk assistant for Dr. Adair, and asked him to notify anesthesia that the patient states she "wakes up slow after anesthesia" and has chronic low blood pressure. I did notify him that I thought she was stable for surgery planned for today. He stated that they do have blood on hold to give if needed as she is at increased risk for acute blood loss with the type of fracture she sustained. Monitor hemoglobin closely. Monitor for hypotension Change to DO NOT RESUSCITATE as per patient request. Repeat lab work tomorrow. DVT prophylaxis per ortho 08/07/17 POD #1 - ORTHO Current anti-coagulation protocol with Lovenox 40mg SQ for VTE prophylaxis. SCD' s for added protection. Will add Flexeril 10mg TID prn for muscle spasms, improve pain control. Anemia- will recheck Hgb at noon today. PT/OT services to improve independent function. Patient non-weight bearing Right leg, may flat toe touch for transfers to the chair. POD #1, hgb 8.5, received 1 unit PRBC intra-op yesterday. Follow hgb closely - may need add'l transfusions. BP stable, occ low readings (chronic). Cont IVF for now. Electrolytes stable. Pain control per ortho - requiring high-risk med IV narcotics to help manage pain. Flexeril added today, in addition to [place]. Per ortho - NWB R leg with flat toe touch for transfers Zofran PRN nausea.
[2017-08-07] MEDS ORDERED: LORazepam 0.5 MG TABLET PO ONE (13:11)
[2017-08-07] MEDS ORDERED: ACETAMINOPHEN 325 MG TABLET PO ONE (15:31)
[2017-08-07 15:41] VITALS: BMI 20.1
[2017-08-07] MEDS ORDERED: NS 250 ML IV ONE (17:12)
[2017-08-07] MEDS: ENOXAPARIN 40 MG/0.4 ML INJECTION SQ SCH (20:54)
[2017-08-07] MEDS: ROPINIROLE 0.25 MG TABLET PO SCH (20:55)
[2017-08-08] MEDS: NS 1,000 ML IV SCH ×4 (02:55→17:40)
[2017-08-08] MEDS: NOZIN NASAL SWAB NAS SCH ×3 (06:17→21:24)
[2017-08-08] MEDS: HYDROCODONE/APAP 5mg/325mg TABLET PO PRN ×2 (09:47→16:02)
[2017-08-08] MEDS: POLYETHYL GLYCOL 3350 17gm PACKET PO SCH (09:47)
[2017-08-08] MEDS: SENNA + DOCUSATE TABLET PO SCH ×2 (09:47→21:23)
[2017-08-08] MEDS: CYCLOBENZAPRINE 10 MG TABLET PO PRN (09:48)
[2017-08-08] MEDS: ROPINIROLE 0.25 MG TABLET PO PRN (14:01)
--- NOTE | 2017-08-08 15:05 | Orthopedic Progress Note ---
Date: Date: 08/08/17 Time: 1503 Subjective/Severity of Illness: Has been confused since given ativan yesterday. Pain seems better controlled. Exam - Constitutional Vital Signs: Temperature 99.4 F 08/08/17 11:34 Pulse Rate 108 H 08/08/17 11:34 Respiratory Rate 18 08/08/17 11:34 Blood Pressure 104/55 08/08/17 11:34 Pulse Oximetry 97 08/08/17 11:34 General: cooperative, no acute distress, frail appearing Nutritional Appearance: thin Orientation: alert (not oriented to time or place.), confused Limitations: altered mental status - RLE Postoperative Appearance: extremity compartments are soft and nontender, neurovascullary intact to extremities Vascular: dorsalis pedis pulse within normal limits Right Lower Extremity comments: Dressing CDI - Respiratory Respiratory Exam: non-labored - Cardiac Cardiovascular exam: pedal pulses intact - Abdominal GI/Abdominal Exam: soft - Labs Result Diagrams: 08/08/17 03:49 08/08/17 03:49 Abnormal lab results 08/07/17 08/08/17 08/08/17 Range/Units 17:20 03:49 03:49 Hgb 8.0 L 7.6 L (12-16) GM/DL Hct 23.7 L 22.4 L (36-46) % Potassium 3.5 L (3.6-5) MEQ/L Chloride 111 H (98-107) MEQ/L Creatinine 0.5 L (0.7-1.2) mg/dL BUN/Creatinine Ratio 32 H (6-26) RATIO Glucose 112 H (65-110) MG/DL Calcium 8.1 L (8.4-10.2) MG/DL H & H 08/06/17 08/06/17 08/07/17 Range/Units 04:18 20:08 04:39 Hgb 10.3 L D 10.0 L 8.5 L D (12-16) GM/DL Hct 30.7 L D 29.8 L 25.4 L D (36-46) % 08/07/17 08/07/17 08/08/17 Range/Units 12:19 17:20 03:49 Hgb 8.5 L 8.0 L 7.6 L (12-16) GM/DL Hct 25.4 L 23.7 L 22.4 L (36-46) % Orthopedic Assessment and Plan (1) Femur fracture, right Status: Acute Qualifiers: Encounter type: initial encounter Femur location: shaft Fracture type: closed Fracture morphology: oblique Fracture alignment: displaced Qualified Code(s): S72.331A - Displaced oblique fracture of shaft of right femur , initial encounter for closed fracture Problem Details: Periprosthetic fracture Assessment and Plan: Continue current treatment. Ativan was discontinued already (only one dose ordered). Will discuss transfusion with primary team. Hospital Course Summary Disclaimer: The visit summary below is not to be considered part of the above Progress Note. Hospital Course: 08/05/17 - admission to inpatient status 1. fx of right mid shaft femur acute POA: Dr. Adair will go to surgery in am. Pre op evaluation would inform mod risk with very limited METS. no chest pain . metabolically intact. No indication for pre op risk stratification currently. NPO after midnight. caldwell. Dr. Adair will order hughes's traction. 2. Parkinson's ds chronic POA: family reports no recent Neurology involvment. currently manage with homeiopathic medications. sig ds right vs left. would most likely require rehab admission at discharge. PT and OT cx r/c after surgery obviously 3. Dehydration acute POA: fluids overnight with [place]dwell catherer 4. DVT ppx: SCD, defer anticoagulation to surgery 08/06/17 I think the patient is medically stable for planned surgery later today. I did talk with Hakeem, physician pediatric physical therapy assistant for Dr. Adair, and asked him to notify anesthesia that the patient states she "wakes up slow after anesthesia" and has chronic low blood pressure. I did notify him that I thought she was stable for surgery planned for today. He stated that they do have blood on hold to give if needed as she is at increased risk for acute blood loss with the type of fracture she sustained. Monitor hemoglobin closely. Monitor for hypotension Change to DO NOT RESUSCITATE as per patient request. Repeat lab work tomorrow. DVT prophylaxis per ortho 08/07/17 POD #1 - ORTHO Current anti-coagulation protocol with Lovenox 40mg SQ for VTE prophylaxis. SCD' s for added protection. Will add Flexeril 10mg TID prn for muscle spasms, improve pain control. Anemia- will recheck Hgb at noon today. PT/OT services to improve independent function. Patient non-weight bearing Right leg, may flat toe touch for transfers to the chair. POD #1, hgb 8.5, received 1 unit PRBC intra-op yesterday. Follow hgb closely - may need add'l transfusions. BP stable, occ low readings (chronic). Cont IVF for now. Electrolytes stable. Pain control per ortho - requiring high-risk med IV narcotics to help manage pain. Flexeril added today, in addition to [place]. Per ortho - NWB R leg with flat toe touch for transfers Zofran PRN nausea.
--- NOTE | 2017-08-08 15:32 | Progress Note ---
- Date 08/08/17 Subjective: Yari has been confused and hallucinating since receiving Ativan yesterday afternoon. Initially I spoke with her - he states that she' had problems with confusion in the past but never to this extent. He states that she 's been very restless. Occasionally it looks like she's panting. She has hardly eaten or drank anything. Yari was able to communicate fairly well with me. She commented on pain/cramping which is worse in her left thigh since surgery; she denies nausea/vomiting or abd pain. She had a fever of 101.2 yesterday afternoon but has been afebrile today. Objective Vital signs: Temperature 99.4 F 08/08/17 11:34 Pulse Rate 108 H 08/08/17 11:34 Respiratory Rate 18 08/08/17 11:34 Blood Pressure 104/55 08/08/17 11:34 Pulse Oximetry 97 08/08/17 11:34 Height/Weight/BMI: Height 1.57 m Weight 51.2 kg Body Mass Index 20.1 - Constitutional Present: well nourished, well developed, thin - Routine HEENT Exam Head: Present: normocephalic Eye: Absent: conjunctival icterus, scleral injection - Routine Respiratory Exam Present: CTA bilaterally - Routine Cardiovascular Exam Present: RRR, S1, S2 - Routine Abdominal Exam Present: soft, normoactive bowel sounds, non distended, non tender - Routine Exam Comments: Caldwell to DD - Routine Extremities Exam Present: no edema - Routine Skin Exam Present: dry, pallor, warm Comments: large dressing to right thigh - c/d/i - Routine Neurological Exam Present: alert. Absent: facial asymmetry - Routine Psychiatric Exam Present: cooperative Results - Labs CBC & Chem 7: 08/08/17 03:49 08/08/17 03:49 Assessment and Plan (1) Femur fracture, right Problem details: Periprosthetic fracture Current visit: Yes Status: Acute (2) Parkinson disease Current visit: Yes Status: Acute Assessment and Plan: Assessment Right Periprosthetic distal femur fracture, s/p ORIF on 08/06/17, Dr. Giovany RENTERIA - PRBC transfusion x1 unit 08/06/17 & again 08/08/17 Encephalopathy Parkinson's disease Chronic low blood pressure with occasional orthostatic symptoms Mild elevated transaminases Possible constipation seen on x-ray right hip Restless leg syndrome Plan POD #2, hgb 7.6, received 1 unit PRBC intra-op. Hgb normal at 12.6 on admit. With tachycardia, confusion, will transfuse another unit PRBC. BP stable, occ low readings (chronic). Occult sepsis is another possibility for encephalopathy, tachycardia. TMax 101.2. Check UA and CXR. K slightly low at 3.5 - KDur ordered. Minimize narcotics/benzos as much as possible. Hold Flexeril and the PRN Requip. Discussed with ot's spouse, Dr. Smith and Dr. Adair. DVT Prophylaxis: SCD's, Lovenox Resuscitation Status: Do Not Resuscitate - Physician Narrative Physician: Sharon Smith MD Narrative: Date: 08/08/17 Time: 1800 I have independently evaluated and examined this patient. I reviewed the chart, the patient's history, and the MEAT SOAKER/PA's documented findings as above. We discussed and formulated the assessment and plan as above with additions as below: Mrs. Rae was moderately confused when seen this morning and complained of ongoing cramps in her legs and toes. She additionally described seeing people in her room overnight and rambled about an event in [place]. Fatigued appearing, confused Flexing/extending toes and ankles repetitively Trace edema at the ankles bilaterally Respirations nonlabored, anterior breath sounds clear Potassium supplemented earlier, agree with additional unit packed red blood cells and minimizing sedating or psychotropic medications. Nursing reports patient requires complete lift with transfers; will not discontinue catheter today. Hospital Course Summary Disclaimer: The visit summary below is not to be considered part of the above Progress Note. Hospital Course: 08/05/17 - admission to inpatient status 1. fx of right mid shaft femur acute POA: Dr. Adair will go to surgery in am. Pre op evaluation would inform mod risk with very limited METS. no chest pain . metabolically intact. No indication for pre op risk stratification currently. NPO after midnight. caldwell. Dr. Adair will order hughes's traction. 2. Parkinson's ds chronic POA: family reports no recent Neurology involvment. currently manage with homeiopathic medications. sig ds right vs left. would most likely require rehab admission at discharge. PT and OT cx r/c after surgery obviously 3. Dehydration acute POA: fluids overnight with caldwell catherer 4. DVT ppx: SCD, defer anticoagulation to surgery 08/06/17 I think the patient is medically stable for planned surgery later today. I did talk with Hakeem, physician healthcare administrative assistant for Dr. Adair, and asked him to notify anesthesia that the patient states she "wakes up slow after anesthesia" and has chronic low blood pressure. I did notify him that I thought she was stable for surgery planned for today. He stated that they do have blood on hold to give if needed as she is at increased risk for acute blood loss with the type of fracture she sustained. Monitor hemoglobin closely. Monitor for hypotension Change to DO NOT RESUSCITATE as per patient request. Repeat lab work tomorrow. DVT prophylaxis per ortho 08/07/17 POD #1 - ORTHO Current anti-coagulation protocol with Lovenox 40mg SQ for VTE prophylaxis. SCD' s for added protection. Will add Flexeril 10mg TID prn for muscle spasms, improve pain control. Anemia- will recheck Hgb at noon today. PT/OT services to improve independent function. Patient non-weight bearing Right leg, may flat toe touch for transfers to the chair. POD #1, hgb 8.5, received 1 unit PRBC intra-op yesterday. Follow hgb closely - may need add'l transfusions. BP stable, occ low readings (chronic). Cont IVF for now. Electrolytes stable. Pain control per ortho - requiring high-risk med IV narcotics to help manage pain. Flexeril added today, in addition to [place]. Per ortho - NWB R leg with flat toe touch for transfers Zofran PRN nausea. 616/18 POD #2, hgb 7.6, received 1 unit PRBC intra-op. Hgb normal at 12.6 on admit. With tachycardia, confusion, will transfuse another unit PRBC. BP stable, occ low readings (chronic). Occult sepsis is another possibility for encephalopathy, tachycardia. TMax 101.2. Check UA and CXR. K slightly low at 3.5 - KDur ordered. Minimize narcotics/benzos as much as possible. Hold Flexeril and the PRN Requip.
[2017-08-08] MEDS ORDERED: NS FLUSH BAG 500ml IV PRN (15:38)
[2017-08-08] MEDS ORDERED: NS 1,000 ML IV SCH (16:00)
[2017-08-08] MEDS: ENOXAPARIN 40 MG/0.4 ML INJECTION SQ SCH (21:24)
[2017-08-08] MEDS: ROPINIROLE 0.25 MG TABLET PO SCH (21:24)
[2017-08-08] MEDS: MORPHINE SULFATE 10mg/ml INJECTION IVP PRN (22:23)
[2017-08-09] MEDS: NS 1,000 ML IV SCH ×3 (06:13→18:35)
[2017-08-09] MEDS: NOZIN NASAL SWAB NAS SCH ×4 (06:13→21:12)
[2017-08-09] MEDS ORDERED: BISACODYL 10 MG SUPPOSITORY RECTALLY PRN (08:52)
[2017-08-09] MEDS: POLYETHYL GLYCOL 3350 17gm PACKET PO SCH ×2 (08:56→20:00)
[2017-08-09] MEDS: ACETAMINOPHEN 500 MG TABLET PO PRN (08:56)
[2017-08-09] MEDS: SENNA + DOCUSATE TABLET PO SCH ×2 (08:56→20:00)
[2017-08-09] MEDS ORDERED: FUROSEMIDE 20 MG/2 ML INJECTION IVP ONE (10:56)
[2017-08-09] MEDS: ROPINIROLE 0.25 MG TABLET PO PRN (11:21)
--- NOTE | 2017-08-09 11:48 | XRay Report ---
Indication: encephalopathy, fever PROCEDURE: XR chest 1V: Encounter: Initial Comparison: August 05, 2017 Findings: Increasing interstitial prominence since the prior study with new small effusions. No pneumothorax. Heart size and mediastinal contours are stable. Pulmonary vascularity is more prominent. Impression: Developing mild pulmonary edema. .
--- NOTE | 2017-08-09 13:15 | Orthopedic Progress Note ---
Date: Date: 08/09/17 Time: 131 Subjective/Severity of Illness: Mentation improved today. No new complaints. Exam - Constitutional Vital Signs: Temperature 98.3 F 08/09/17 11:23 Pulse Rate 87 08/09/17 11:23 Respiratory Rate 16 08/09/17 11:23 Blood Pressure 143/70 H 08/09/17 11:23 Pulse Oximetry 86 L 08/09/17 11:24 General: cooperative, no acute distress, frail appearing Nutritional Appearance: thin Orientation: alert (not oriented to time or place.), confused Limitations: altered mental status - RLE Postoperative Appearance: extremity compartments are soft and nontender, neurovascullary intact to extremities Right Lower Extremity comments: Dressing CDI - Respiratory Respiratory Exam: non-labored - Cardiac Cardiovascular exam: pedal pulses intact - Abdominal GI/Abdominal Exam: soft - Labs Result Diagrams: 08/09/17 04:16 08/09/17 04:16 Abnormal lab results 08/08/17 08/08/17 08/09/17 Range/Units 16:38 17:12 04:16 RBC 2.75 L (4.00-5.20) M/MM3 Hgb 8.7 L D (12-16) GM/DL Hct 25.0 L D (36-46) % Neut % (Auto) 72.1 H (33-66) % Lymph % (Auto) 14.9 L (23-45) % [place] % (Auto) 11.5 H (0-9.0) % [place] # (Auto) 1.0 H (0-0.8) T/MM3 Chloride (98-107) MEQ/L BUN (7-17) MG/DL Creatinine (0.7-1.2) mg/dL BUN/Creatinine Ratio (6-26) RATIO Glucose (65-110) MG/DL Calcium (8.4-10.2) MG/DL Urine Protein 1+ A (NEGATIVE) Urine Ketones Trace A (NEGATIVE) Urine Occult Blood 3+ A (NEGATIVE) Urine Bilirubin 2+ A (NEGATIVE) Urine Urobilinogen 4.0 A (NORMAL) EU/DL Urine RBC 20-30 H (0-3) /HPF Urine Bacteria 1+ H (NEGATIVE) Crossmatch (AHG) See Detail 08/09/17 Range/Units 04:16 RBC (4.00-5.20) M/MM3 Hgb (12-16) GM/DL Hct (36-46) % Neut % (Auto) (33-66) % Lymph % (Auto) (23-45) % [place] % (Auto) (0-9.0) % [place] # (Auto) (0-0.8) T/MM3 Chloride 111 H (98-107) MEQ/L BUN 18.0 H (7-17) MG/DL Creatinine 0.4 L (0.7-1.2) mg/dL BUN/Creatinine Ratio 45 H (6-26) RATIO Glucose 111 H (65-110) MG/DL Calcium 8.2 L (8.4-10.2) MG/DL Urine Protein (NEGATIVE) Urine Ketones (NEGATIVE) Urine Occult Blood (NEGATIVE) Urine Bilirubin (NEGATIVE) Urine Urobilinogen (NORMAL) EU/DL Urine RBC (0-3) /HPF Urine Bacteria (NEGATIVE) Crossmatch (AHG) H & H 08/06/17 08/06/17 08/07/17 Range/Units 04:18 20:08 04:39 Hgb 10.3 L D 10.0 L 8.5 L D (12-16) GM/DL Hct 30.7 L D 29.8 L 25.4 L D (36-46) % 08/07/17 08/07/17 08/08/17 Range/Units 12:19 17:20 03:49 Hgb 8.5 L 8.0 L 7.6 L (12-16) GM/DL Hct 25.4 L 23.7 L 22.4 L (36-46) % 08/09/17 Range/Units 04:16 Hgb 8.7 L D (12-16) GM/DL Hct 25.0 L D (36-46) % Orthopedic Assessment and Plan (1) Femur fracture, right Status: Acute Qualifiers: Encounter type: initial encounter Femur location: shaft Fracture type: closed Fracture morphology: oblique Fracture alignment: displaced Qualified Code(s): S72.331A - Displaced oblique fracture of shaft of right femur , initial encounter for closed fracture Problem Details: Periprosthetic fracture Assessment and Plan: Continue current treatment. Hospital Course Summary Disclaimer: The visit summary below is not to be considered part of the above Progress Note. Hospital Course: 08/05/17 - admission to inpatient status 1. fx of right mid shaft femur acute POA: Dr. Adair will go to surgery in am. Pre op evaluation would inform mod risk with very limited METS. no chest pain . metabolically intact. No indication for pre op risk stratification currently. NPO after midnight. caldwell. Dr. Adair will order hughes's traction. 2. Parkinson's ds chronic POA: family reports no recent Neurology involvment. currently manage with homeiopathic medications. sig ds right vs left. would most likely require rehab admission at discharge. PT and OT cx r/c after surgery obviously 3. Dehydration acute POA: fluids overnight with caldwell catherer 4. DVT ppx: SCD, defer anticoagulation to surgery 08/06/17 I think the patient is medically stable for planned surgery later today. I did talk with Hakeem, physician front end assistant for Dr. Adair, and asked him to notify anesthesia that the patient states she "wakes up slow after anesthesia" and has chronic low blood pressure. I did notify him that I thought she was stable for surgery planned for today. He stated that they do have blood on hold to give if needed as she is at increased risk for acute blood loss with the type of fracture she sustained. Monitor hemoglobin closely. Monitor for hypotension Change to DO NOT RESUSCITATE as per patient request. Repeat lab work tomorrow. DVT prophylaxis per ortho 18 POD #1 - ORTHO Current anti-coagulation protocol with Lovenox 40mg SQ for VTE prophylaxis. SCD' s for added protection. Will add Flexeril 10mg TID prn for muscle spasms, improve pain control. Anemia- will recheck Hgb at noon today. PT/OT services to improve independent function. Patient non-weight bearing Right leg, may flat toe touch for transfers to the chair. POD #1, hgb 8.5, received 1 unit PRBC intra-op yesterday. Follow hgb closely - may need add'l transfusions. BP stable, occ low readings (chronic). Cont IVF for now. Electrolytes stable. Pain control per ortho - requiring high-risk med IV narcotics to help manage pain. Flexeril added today, in addition to [place]. Per ortho - NWB R leg with flat toe touch for transfers Zofran PRN nausea. 6/18 POD #2, hgb 7.6, received 1 unit PRBC intra-op. Hgb normal at 12.6 on admit. With tachycardia, confusion, will transfuse another unit PRBC. BP stable, occ low readings (chronic). Occult sepsis is another possibility for encephalopathy, tachycardia. TMax 101.2. Check UA and CXR. K slightly low at 3.5 - KDur ordered. Minimize narcotics/benzos as much as possible. Hold Flexeril and the PRN Requip.
--- NOTE | 2017-08-09 13:43 | Progress Note ---
- Date 08/09/17 Subjective: Mrs. Rae was up in the chair when seen this morning. Nursing reports that she was more alert and was able to get up into the chair with nursing assistance and did not require Connor lift today. The patient reports that she continues to have vivid dreams with hallucinations but recognizes them as such today area she had some minor nausea before breakfast but eating helps settle her stomach. She has not had a bowel movement in several days. She denied dyspnea or fevers. She continues to have difficulty with cramping in her legs but it may not be as intense as it was yesterday and she expressed frustration that she was unable to get an extra dose of ropinirole this morning. Objective Vital signs: Temperature 98.3 F 08/09/17 11:23 Pulse Rate 87 08/09/17 11:23 Respiratory Rate 16 08/09/17 11:23 Blood Pressure 143/70 H 08/09/17 11:23 Pulse Oximetry 86%-RA 08/09/17 11:24 I/O 3298/600 Weight up 6-9 kg from admission NAD, drowsy but more verbally responsive today than yesterday Conjunctiva clear, sclera anicteric Respirations nonlabored, good airflow, breath sounds clear Regular rhythm, S1 and S2 Abdomen soft, nontender, bowel sounds present although hypoactive Hands are puffy bilaterally, there is palpable edema in the right leg at the knee and dependent thigh-SCD precludes palpation distally No edema appreciated left lower extremity Height/Weight/BMI: Height 1.57 m Weight 53.3 kg Body Mass Index 20.1 Results - Labs CBC & Chem 7: 08/09/17 04:16 08/09/17 04:16 - Imaging and Cardiology Chest x-ray Status: image reviewed by me (film obtained yesterday afternoon revealed increased vascular markings) Assessment and Plan (1) Femur fracture, right Problem details: Periprosthetic fracture Current visit: Yes Status: Acute (2) Parkinson disease Current visit: Yes Status: Acute Assessment and Plan: Assessment Right Periprosthetic distal femur fracture, s/p ORIF on 08/06/17, Dr. Giovany RENTERIA - PRBC transfusion x1 unit 08/06/17, & 08/08/17 Encephalopathy Parkinson's disease Chronic low blood pressure with occasional orthostatic symptoms Mild elevated transaminases Possible constipation seen on x-ray right hip Restless leg syndrome Volume overload Constipation Plan POD #3, hemoglobin improved to 8.7 after second unit of blood transfused yesterday. Volume status is significantly positive since admission and patient remains slightly hypoxic. IV fluids discontinued, 20 mg Lasix given IV. Caldwell catheter remains in due to patient's impaired mobility. No recurrent fever since isolated temperature nearly 48 hours ago, white count normal as is differential. UA unremarkable except occult blood. Potassium improved, supplemental dose given with Lasix. Continue to hold Flexeril, lorazepam discontinued. Minimize narcotics. Resume when necessary Requip due to ongoing "restless leg symptoms" during the day Overall appears slightly better today but mobility remains severely impaired. DVT Prophylaxis: Lovenox Resuscitation Status: Do Not Resuscitate - Physician Narrative Narrative: Date: 08/09/17 Time: 8 Hospital Course Summary Disclaimer: The visit summary below is not to be considered part of the above Progress Note. Hospital Course: 08/05/17 - admission to inpatient status 1. fx of right mid shaft femur acute POA: Dr. Adair will go to surgery in am. Pre op evaluation would inform mod risk with very limited METS. no chest pain . metabolically intact. No indication for pre op risk stratification currently. NPO after midnight. caldwell. Dr. Adair will order hughes's traction. 2. Parkinson's ds chronic POA: family reports no recent Neurology involvment. currently manage with homeiopathic medications. sig ds right vs left. would most likely require rehab admission at discharge. PT and OT cx r/c after surgery obviously 3. Dehydration acute POA: fluids overnight with caldwell catherer 4. DVT ppx: SCD, defer anticoagulation to surgery 08/06/17 I think the patient is medically stable for planned surgery later today. I did talk with Hakeem, physician bacteriology research assistant for Dr. Adair, and asked him to notify anesthesia that the patient states she "wakes up slow after anesthesia" and has chronic low blood pressure. I did notify him that I thought she was stable for surgery planned for today. He stated that they do have blood on hold to give if needed as she is at increased risk for acute blood loss with the type of fracture she sustained. Monitor hemoglobin closely. Monitor for hypotension Change to DO NOT RESUSCITATE as per patient request. Repeat lab work tomorrow. DVT prophylaxis per ortho 08/07/17 POD #1 - ORTHO Current anti-coagulation protocol with Lovenox 40mg SQ for VTE prophylaxis. SCD' s for added protection. Will add Flexeril 10mg TID prn for muscle spasms, improve pain control. Anemia- will recheck Hgb at noon today. PT/OT services to improve independent function. Patient non-weight bearing Right leg, may flat toe touch for transfers to the chair. 08/07/17 -medicine POD #1, hgb 8.5, received 1 unit PRBC intra-op yesterday. Follow hgb closely - may need add'l transfusions. BP stable, occ low readings (chronic). Cont IVF for now. Electrolytes stable. Pain control per ortho - requiring high-risk med IV narcotics to help manage pain. Flexeril added today, in addition to [place]. Per ortho - NWB R leg with flat toe touch for transfers Zofran PRN nausea. 08/08/17 - medicine POD #2, hgb 7.6, received 1 unit PRBC intra-op. Hgb normal at 12.6 on admit. With tachycardia, confusion, will transfuse another unit PRBC. BP stable, occ low readings (chronic). Occult sepsis is another possibility for encephalopathy, tachycardia. TMax 101.2. Check UA and CXR. K slightly low at 3.5 - KDur ordered. Minimize narcotics/benzos as much as possible. Hold Flexeril and the PRN Requip. 08/09/17 - medicine POD #3, hemoglobin improved to 8.7 after second unit of blood transfused yesterday. Volume status is significantly positive since admission and patient remains slightly hypoxic. IV fluids discontinued, 20 mg Lasix given IV. [place] catheter remains in due to patient's impaired mobility. No recurrent fever since isolated temperature nearly 48 hours ago, white count normal as is differential. UA unremarkable except occult blood. Potassium improved, supplemental dose given with Lasix. Continue to hold Flexeril, lorazepam discontinued. Minimize narcotics. Resume when necessary Requip due to ongoing "restless leg symptoms" during the day Overall appears slightly better today but mobility remains severely impaired.
[2017-08-09] MEDS: ROPINIROLE 0.25 MG TABLET PO SCH (20:00)
[2017-08-09] MEDS ORDERED: GUAIFENESIN 200mg/10ml ORAL LIQUID PO PRN (23:20)
[2017-08-09] MEDS: HYDROCODONE/APAP 5mg/325mg TABLET PO PRN (23:31)
[2017-08-10] MEDS: ACETAMINOPHEN 500 MG TABLET PO PRN (03:45)
[2017-08-10] MEDS: NOZIN NASAL SWAB NAS SCH (05:16)
[2017-08-10] MEDS: HYDROCODONE/APAP 5mg/325mg TABLET PO PRN ×2 (05:40→11:43)
--- NOTE | 2017-08-10 08:07 | Orthopedic Progress Note ---
Date: Date: 08/10/17 Time: 08 Subjective/Severity of Illness: Yari is having muscle spasms that make the hip flex without her control. She is having trouble with transfers and generally feels weak. Feels her hip pain is controlled at rest. No CP or SOA. Has some edema in her lower legs. Labs stable. Orthopedic Exam Vital signs: Temperature 99 F 08/07/17 07:35 Pulse Rate 97 08/07/17 07:35 Respiratory Rate 16 08/07/17 07:35 Blood Pressure 122/50 08/07/17 07:35 Pulse Oximetry 93 08/07/17 07:35 - Constitutional General Appearance: Present: alert, cooperative, well developed, well nourished - Respiratory Exam Present: non-labored - Cardiovascular Exam Present: pedal pulses intact - Abdominal Exam Present: soft - Extremities Exam Present: edema - Dressing Dressing: dry, intact, no drainage - Integumentary Exam Present: pink, warm, dry - Neurological Exam Present: intact to light touch, no deficits - Psychiatric Exam Present: alert - Labs Result Diagrams: 08/10/17 03:57 08/10/17 03:57 Abnormal lab results 08/10/17 08/10/17 Range/Units 03:57 03:57 RBC 2.78 L (4.00-5.20) M/MM3 Hgb 8.7 L (12-16) GM/DL Hct 25.6 L (36-46) % [place] % (Auto) 9.2 H (0-9.0) % Chloride 108 H (98-107) MEQ/L BUN 20.0 H (7-17) MG/DL Creatinine 0.4 L (0.7-1.2) mg/dL BUN/Creatinine Ratio 50 H (6-26) RATIO Calcium 8.3 L (8.4-10.2) MG/DL H & H 08/06/17 08/06/17 08/07/17 Range/Units 04:18 20:08 04:39 Hgb 10.3 L D 10.0 L 8.5 L D (12-16) GM/DL Hct 30.7 L D 29.8 L 25.4 L D (36-46) % 08/07/17 08/07/17 08/08/17 Range/Units 12:19 17:20 03:49 Hgb 8.5 L 8.0 L 7.6 L (12-16) GM/DL Hct 25.4 L 23.7 L 22.4 L (36-46) % 08/09/17 08/10/17 Range/Units 04:16 03:57 Hgb 8.7 L D 8.7 L (12-16) GM/DL Hct 25.0 L D 25.6 L (36-46) % Orthopedic Assessment and Plan (1) Femur fracture, right Status: Acute Qualifiers: Encounter type: initial encounter Femur location: shaft Fracture type: closed Fracture morphology: oblique Fracture alignment: displaced Qualified Code(s): S72.331A - Displaced oblique fracture of shaft of right femur , initial encounter for closed fracture Problem Details: Periprosthetic fracture Assessment and Plan: Continue current treatment. Pt scheduled to go to [place] when medically stable. Will need f/u with T Snyder in 2-3 weeks. Remain touch wt bearing on right leg with foot flat (not on tip toes). Cont current DVT prevention. Hospital Course Summary Disclaimer: The visit summary below is not to be considered part of the above Progress Note. Hospital Course: 08/05/17 - admission to inpatient status 1. fx of right mid shaft femur acute POA: Dr. Adair will go to surgery in am. Pre op evaluation would inform mod risk with very limited METS. no chest pain . metabolically intact. No indication for pre op risk stratification currently. NPO after midnight. caldwell. Dr. Adair will order hughes's traction. 2. Parkinson's ds chronic POA: family reports no recent Neurology involvment. currently manage with homeiopathic medications. sig ds right vs left. would most likely require rehab admission at discharge. PT and OT cx r/c after surgery obviously 3. Dehydration acute POA: fluids overnight with caldwell catherer 4. DVT ppx: SCD, defer anticoagulation to surgery 08/06/17 I think the patient is medically stable for planned surgery later today. I did talk with Hakeem, physician mailing machine assistant for Dr. Adair, and asked him to notify anesthesia that the patient states she "wakes up slow after anesthesia" and has chronic low blood pressure. I did notify him that I thought she was stable for surgery planned for today. He stated that they do have blood on hold to give if needed as she is at increased risk for acute blood loss with the type of fracture she sustained. Monitor hemoglobin closely. Monitor for hypotension Change to DO NOT RESUSCITATE as per patient request. Repeat lab work tomorrow. DVT prophylaxis per ortho 08/07/17 POD #1 - ORTHO Current anti-coagulation protocol with Lovenox 40mg SQ for VTE prophylaxis. SCD' s for added protection. Will add Flexeril 10mg TID prn for muscle spasms, improve pain control. Anemia- will recheck Hgb at noon today. PT/OT services to improve independent function. Patient non-weight bearing Right leg, may flat toe touch for transfers to the chair. 08/07/17 -medicine POD #1, hgb 8.5, received 1 unit PRBC intra-op yesterday. Follow hgb closely - may need add'l transfusions. BP stable, occ low readings (chronic). Cont IVF for now. Electrolytes stable. Pain control per ortho - requiring high-risk med IV narcotics to help manage pain. Flexeril added today, in addition to [place]. Per ortho - NWB R leg with flat toe touch for transfers Zofran PRN nausea. 08/08/17 - medicine POD #2, hgb 7.6, received 1 unit PRBC intra-op. Hgb normal at 12.6 on admit. With tachycardia, confusion, will transfuse another unit PRBC. BP stable, occ low readings (chronic). Occult sepsis is another possibility for encephalopathy, tachycardia. TMax 101.2. Check UA and CXR. K slightly low at 3.5 - KDur ordered. Minimize narcotics/benzos as much as possible. Hold Flexeril and the PRN Requip. 08/09/17 - medicine POD #3, hemoglobin improved to 8.7 after second unit of blood transfused yesterday. Volume status is significantly positive since admission and patient remains slightly hypoxic. IV fluids discontinued, 20 mg Lasix given IV. [place] catheter remains in due to patient's impaired mobility. No recurrent fever since isolated temperature nearly 48 hours ago, white count normal as is differential. UA unremarkable except occult blood. Potassium improved, supplemental dose given with Lasix. Continue to hold Flexeril, lorazepam discontinued. Minimize narcotics. Resume when necessary Requip due to ongoing "restless leg symptoms" during the day Overall appears slightly better today but mobility remains severely impaired.
[2017-08-10] MEDS: POLYETHYL GLYCOL 3350 17gm PACKET PO SCH (08:26)
[2017-08-10] MEDS: SENNA + DOCUSATE TABLET PO SCH (08:26)
[2017-08-10] MEDS ORDERED: FUROSEMIDE 20 MG/2 ML INJECTION IVP ONE (11:36)
--- NOTE | 2017-08-10 12:18 | Discharge Summary ---
Discharge Information Date of admission: 08/05/17 18:49 Anticipated date of discharge: 08/10/17 Attending Physician: Sharon Smith MD Primary care physician: Karolyn Barahona MD Consults: Consulting Provider: Ted Adair - Discharge Diagnosis (1) Femur fracture, right Status: Acute Right Periprosthetic distal femur fracture, s/p ORIF on 08/06/17, Dr. Adair ABLA - PRBC transfusion x1 unit 08/06/17, & 08/08/17 Encephalopathy - resolved Parkinson's disease Chronic low blood pressure with occasional orthostatic symptoms Mild elevated transaminases Restless leg syndrome Volume overload - diuresed in hospital Constipation - improved - Procedures Procedures: ORIF Right Periprosthetic distal femur fracture on 08/06/17, Dr. Adair PRBC transfusion x1 unit 08/06/17, & 08/08/[address], inserted on admission - Laboratory Labs: 08/10/17 03:57 08/10/17 03:57 - Radiology Radiology: = = = = = = = = = = = = = = = = = = = = = = = = = = = = = = = = = = = = = = = = = = = = = = = = = = = = = = = = = = = Date of Exam: 08/05/17 PROCEDURE: XR chest 1V: Findings: The lungs are stable in appearance without new focal airspace consolidation. There is no pleural effusion or pneumothorax. The heart size, pulmonary vascularity and mediastinal contours are unchanged. IMPRESSION: Stable appearance of the chest without acute cardiopulmonary disease. = = = = = = = = = = = = = = = = = = = = = = = = = = = = = = = = = = = = = = = = = = = = = = = = = = = = = = = = = = = Date of Exam: 08/05/17 PROCEDURE: XR hip RT 1V: Findings/Impression: Oblique mildly displaced and angulated fracture of the mid femoral diaphysis with bony overriding. This is a periprosthetic fracture originating near the femoral stem of the hip prosthesis. No additional acute fracture or dislocation noted. = = = = = = = = = = = = = = = = = = = = = = = = = = = = = = = = = = = = = = = = = = = = = = = = = = = = = = = = = = = Date of Exam: 08/05/17 PROCEDURE: CT LE RT without contrast: Findings: There is a displaced periprosthetic fracture of the distal femur with anterior displacement of the distal fracture fragment by one shaft width and overriding of the fracture fragments by 4 to 5 cm. Fracture originates just distal to the tip of the femoral stem of the right hip prosthesis. No additional acute fracture. No dislocation. Soft tissues of the pelvis are obscured by metallic artifact from the hip replacements. No obvious intramuscular hematoma. Impression: Posttraumatic periprosthetic distal femoral fracture. = = = = = = = = = = = = = = = = = = = = = = = = = = = = = = = = = = = = = = = = = = = = = = = = = = = = = = = = = = = Date of Exam: 08/06/17 PROCEDURE: AP and Lateral views of the Right Femur Findings/Impression: Slight increase in apex anterior angulation of the mid femoral periprosthetic fracture. Continued overriding of the fracture fragments. No new fracture or dislocation. = = = = = = = = = = = = = = = = = = = = = = = = = = = = = = = = = = = = = = = = = = = = = = = = = = = = = = = = = = = Date of Exam: 08/08/17 PROCEDURE: XR chest 1V: Findings: Increasing interstitial prominence since the prior study with new small effusions. No pneumothorax. Heart size and mediastinal contours are stable. Pulmonary vascularity is more prominent. Impression: Developing mild pulmonary edema. History of Present Illness HPI: This is a 77 y/o patient with severe Parkinson's ds who is currently being treated with homeopathic medications. The patient has fallen now 4 times in the past 1.5 years. Today she was trying to get up out of chair and fell landing on her right side. Immediate right leg pain. Has previous fx right hip with total joint replacement. The patient has severe osteoporosis. In the ED has a very angulated right mid shaft femur fx. Neurovascular intact per ED. Dr. Adair was gracious enough to take phone call today (not jawbone puller) and agreed to repair this fracture tomorrow. The patient has ongoing weakness and gait mobility deficit. The patient is cared for by her who is present in the room. She does not smoke or drink. Metabolic workup in the ED was reassuring. Objective Vital signs: Temperature 97.4 F 08/10/17 07:07 Pulse Rate 92 08/10/17 07:07 Respiratory Rate 12 08/10/17 07:07 Blood Pressure 126/69 08/10/17 07:07 Pulse Oximetry 94 08/10/17 07:07 Height/Weight/BMI: Height 1.57 m Weight 53.4 kg Body Mass Index 20.1 - Constitutional Present: no acute distress, well nourished, well developed - Routine HEENT Exam Head: Present: normocephalic Eye: Present: PERRL. Absent: conjunctival icterus, scleral injection - Routine Respiratory Exam Present: decreased breath sounds (b/l bases) - Routine Cardiovascular Exam Present: RRR, S1, S2 - Routine Abdominal Exam Present: soft, normoactive bowel sounds, non distended, non tender - Routine Extremities Exam Present: edema (b/l arms; right thigh; dressing to right thigh c/d/i), pulses intact - Routine Skin Exam Present: intact, dry, warm - Routine Neurological Exam Present: alert, oriented X3, normal speech - Routine Psychiatric Exam Present: normal affect, normal thought process, cooperative Hospital Course This is a general summary of the patient's hospital course. For more details refer to the complete medical record. Hospital course: 08/05/17 - Admission to inpatient status for Right Periprosthetic distal femur fracture Dr. Adair consulted; Villalpando's traction ordered. Askew was inserted. Fluids were administered for dehydration. 08/06/17 - OP DAY - ORIF Hgb 10.3; she received 1 unit PRBC intra-op. 08/07/17 - POD #1 POD #1, hgb 8.5. BP stable, occ low readings (chronic). Cont IVF. Electrolytes stable. Requip added for RLS. Requiring IV narcotics to help manage pain. Flexeril added today, in addition to [place]. Per ortho - NWB R leg with flat toe touch for transfers 08/08/17 - POD #2 hgb 7.6, tachycardic and encephalopathic - transfused another unit PRBC. TMax 101.2. UA and CXR were negative for infection. K slightly low at 3.5 - KDur ordered. Minimize narcotics/benzos as much as possible. Hold Flexeril and PRN Requip. 08/09/17 - POD #3 Hgb 8.7. Volume status is significantly positive, patient slightly hypoxic. IVF dc'd; Lasix 20 mg IV x1. K improved. Afebrile, WBC normal. Continue to hold Flexeril, lorazepam discontinued. Minimize narcotics. Resume when necessary Requip due to ongoing "restless leg symptoms" during the day Overall slightly better today but mobility remains severely impaired. 08/10/17 - Discharge to SNF Hgb 8.7. Additional Lasix 20 mg IV given for volume overload. Maintaining sats on room air. Pivot-transfer ability improving. Askew remains in place but bladder retraining initiated, and could dc Askew on 08/11/17. WB status: touch wt bearing on right leg with foot flat (not on tip toes). Follow up with Jonny Snyder APRN in 2-3 weeks. Will continue Lovenox for 30 days postop. F/U with Dr. Barahona in 1 week - recheck hgb, electrolytes given recent ABLA and need for diuresis. Time spent with patient: discharge greater than 30 minutes Resuscitation Status: Do Not Resuscitate Discharge Plan - Discharge Disposition Discharge Date: 08/10/17 Disposition: 03 To SNU Not [facility] ([facility]) *Condition: Stable Reason For Visit (Visit label in EMR): Fx right femur - Discharge Medications *Discharge Medications: New Acetaminophen [Tylenol] 500 mg PO Q5H PRN tab PRN Reason: Discomfort Enoxaparin Sodium [Lovenox] 40 mg SQ Q24H #26 syringe Hydrocodone/APAP 5/325 [[place] 5/325] 1 - 2 tab PO Q6H PRN #20 tab PRN Reason: Pain Ropinirole [Requip] 0.25 mg PO TID PRN #20 tab PRN Reason: Muscle Spasm Continue Cholecalciferol (Vitamin D3) [Vitamin D3] 1,000 unit PO Q2D #0 Ropinirole HCl 0.75 mg PO HS Selenium 200 mcg PO Q2D Curcumin 1 tab PO Q2D Tramadol [Ultram] 50 mg PO HS PRN PRN Reason: Prn Orders Senna + Docusate [Senna Plus Tablet] 2 tab PO BID PRN PRN Reason: Constipation Discontinued Phytonadione (Vit K1) [Vitamin K] 100 mcg PO Q2D - Discharge Packet/Instructions *Diet: Resume normal diet as tolerated *Activity: Continue the exercises you were given in the hospital three times a day. Your therapist will provide you with a home therapy program prior to your hospital discharge. As you feel stronger, increase the number of repetitions you do in each session. Please check with us before you swim, use a whirlpool, drive or ride a bicycle *Pain Management/Treatment: Ice packs may be used, and will also help with the pain. *Wound Care: In most cases, a Mepilex dressing will be placed at the time of surgery. This dressing will not need to be covered while showering. Leave dressing in place until your follow-up appointment as long as it remains clean, dry and stuck down well around the edges. Call your Doctor if you encounter a problem with your dressing. Please avoid submerging your incision until it is completely healed, once the Mepilex dressing is removed. This includes bathtubs , swimming pools, and hot tubs. DO NOT USE ALCOHOL, PEROXIDE, OR OINTMENTS of any kind on your incision. Additional Instructions: Bladder retraining on 08/10/17; DC Askew on 08/11/17. Have labs rechecked when you follow up with Dr. Barahona - CBC & BMP. *Expected Signs/Symptoms: Some swelling around the incision, as well as in your feet and legs is normal. To help with this, elevate your feet on a footstool when sitting in a chair, and do the ankle pumps and circles whenever you are sitting still. Muscle action helps to move collected fluid out of the tissues and improve circulation. Ice packs may be used, and will also help with the pain. Report any persistent swelling, calf tenderness, increase in pain, or pain in the calf with warmth, or redness to your doctor. *Notify Physician if: Report any complications to the office immmediately. This includes excessive bleeding, wound breakdown, redness around the wound, uncontrolled pain, or fever over 101 on 3 different measurements. Eat a balanced diet and get plenty of rest. *During Business Hours Contact: If you have any questions or concerns, please call during regular office hours ([phone]). *After Business Hours Contact: If you have any problems or need to reach a physician after hours or on the weekend please call the hospital's main number [phone] to have your physician paged. *Pending Lab/Results: No Pending Lab - Referrals/Follow Up *Referrals/Follow Up: Jing Snyder APRN [Advanced Practice Nurse] - 2 Weeks Fast,Tory Holm MD [Physician] - 1 Week (please check CBC and BMP) - Patient Handouts Patient Handouts: Blood Transfusion (GEN), [facility] Postop Instructions - Dismissal Complete Discharge Instructions are:: Complete Physician Narrative - Narrative Physician: Sharon Smith MD Attestation Narrative: Date: 08/10/17 Time: 1500 I have independently evaluated and examined this patient. I reviewed the chart, the patient's history, and the TRUCK HOPPER/PA's documented findings as above. We discussed and formulated the assessment and plan as above with additions as below: Mrs. Rae was seen with her at the bedside. She is much more alert today complaining only of intermittent cramping in her feet and legs. She was able to pivot transfer with assistance to the chair today. She is nonweightbearing on the right lower extremity for 3 months per report of . NAD, alert, oriented 3 Persistent edema dependent aspect of thighs bilaterally; respirations nonlabored with good airflow Additional IV Lasix given this morning; initiate bladder training. Stable for discharge to detention today.
[2017-08-10 12:19] VITALS: BP 121/65; PULSE 100; RESP 18; TEMP 95.9; O2SAT 100
--- NOTE | 2017-08-10 12:54 | Extended Care Facility Orders ---
Admission Orders Admit to:: Residential Allergies/Adverse Reactions: Allergies lorazepam Adverse Reaction (Intermediate, Verified 08/08/17 12:01) Confusion Admitting Diagnosis: Fx right femur Admitting Physician: Sharon Smith MD Attending Physician: Sharon Smith MD Code Status: Do Not Resuscitate Anticiapted Length of Stay: 30 days or less Rehab Potential: fair Rehab Prognosis: fair Diet: Regular Diet Wound/Incision Care: In most cases, a Mepilex dressing will be placed at the time of surgery. This dressing will not need to be covered while showering. Leave dressing in place until your follow-up appointment as long as it remains clean, dry and stuck down well around the edges. Call your Doctor if you encounter a problem with your dressing. Please avoid submerging your incision until it is completely healed, once the Mepilex dressing is removed. This includes bathtubs, swimming pools, and hot tubs. DO NOT USE ALCOHOL, PEROXIDE, OR OINTMENTS of any kind on your incision. May use Facility Protocol or Standing Orders: Yes May have flu vaccine: Yes Evaluations/Treatment: PT, OT Residential Certification: I certify that SNF services are required to be given on an Inpatient basis because of the patient's need for senior living care on a continuing basis for the condition(s) for which she received inpatient hospital services prior to her transfer to the SNF. SNF inpatient care is necessary for the following reasons Indication for Residential: Wound Care/Assessment, Postop Assessment Care - Additional Information In Event of Arrest: Do Not Start CPR Resident is Aware of Diagnosis: Yes Laboratory/Radiology: CBC & BMP in 1 week Referrals: Tory Barahona MD [Physician] - 1 Week (please check CBC and BMP) Jing Snyder APRN [Advanced Practice Nurse] - 2 Weeks Additional Orders: WB status: touch wt bearing on right leg with foot flat (not on tip toes). Askew retraining 08/10/17. DC [place] 08/11/17. Bladder scan if needed
[2017-08-10] MEDS: ROPINIROLE 0.25 MG TABLET PO PRN (13:30)
== END 2017-08-10 13:55 | DRG 480 ==
LOC: ED 16:34 → EDHOLD 18:49 → SUATTDRO 18:49 → SRG 19:20
PROVIDERS: ADMIT Emergency Medicine; ATTEND Internal Medicine

== ENCOUNTER 2017-08-19 18:21 | Inpatient (IN) ==
[2017-08-19] MEDS ORDERED: NS 1,000 ML IV ONE (18:37)
[2017-08-19] MEDS ORDERED: ROPINIROLE 0.25 MG TABLET PO ONE ×2 (18:50→23:21)
--- NOTE | 2017-08-19 19:05 | Emergency Department Report ---
Fever HPI - General Chief Complaint: Fever Stated Complaint: Fever Time Seen by Provider: 08/19/17 18:24 - History of Present Illness HPI Narrative: 77-year-old female presents with fever and fatigue 1 week postop. She had femur fracture repair with significant hardware placement. She has been at a physical rehabilitation inpatient and became ill this morning. 102 at facility, 101.3 on arrival here. She feels very tired, achy. No nausea or vomiting. No dysuria or hesitancy or urgency. Does feel slightly short of breath with deep breathing. No increase in pain and right hip. - Related Data Home Medications Medication Instructions Recorded Confirmed Cholecalciferol (Vitamin D3) 1,000 unit PO Q2D #0 03/05/16 08/19/17 [Vitamin D3] Ropinirole HCl 0.75 mg PO HS 01/01/17 08/19/17 Selenium 200 mcg PO Q2D 01/01/17 08/19/17 Senna + Docusate [Senna Plus 2 tab PO BID PRN 01/01/17 08/19/17 Tablet] Curcumin 1 tab PO Q2D 08/05/17 08/19/17 Mag Hydrox/Aluminum Hyd/Simeth 30 ml PO Q4H PRN 08/19/17 08/19/17 [Alum-Mag Hydroxide-Simeth Liq] Peg 3350 238 G Bottle [Miralax] 17 gm PO BID 08/19/17 08/19/17 Peg 3350 238 G Bottle [Miralax] 17 gm PO DAILY PRN 08/19/17 08/19/17 Allergies Allergy/AdvReac Type Severity Reaction Status Date / Time lorazepam AdvReac Intermediate Confusion Verified 08/19/17 18:35 Review of Systems All systems: reviewed and negative except as stated PFSH Patient Stated Medical History Parkinson's Disease Yes Cataracts Yes: just starting possibly Hypotension Yes Sleep Apnea No Other Respiratory Yes: chronic cough for years Other Musculoskeletal Yes: parkinisons, restless legs Clinic Medical History (Last Reviewed 03/09/17 @ 09:53 by Dayna Pope MD) Tremor (Chronic Medical) Balance disorder (Chronic Medical) Osteoporosis (Chronic Medical) Surgical History: Right hip replacement (04/2014) in [place]. Uterine surgery for endometriosis and appendectomy in 1965. D&C. Lt Hip Fadi A 10-12-17 Family History: Family History (Last Reviewed 03/09/17 @ 09:53 by Dayna Pope MD) Mother Stroke Father Heart attack DVT (deep venous thrombosis) COPD (chronic obstructive pulmonary disease) Sister Brain tumor - Social History Smoking status: Never smoker second hand exposure: No Substance use type: does not use Alcohol intake: never Alcohol intake frequency: does not drink Housing: house Household members: spouse Current occupational status: retired Current residence: [facility] Physical Exam - Limitations Limitations: no limitations - General General appearance: alert - Normal Exams: Head:: Normocephalic without trauma Chest/Respirations:: Clear all marinelli, with good airflow, and symmetry bilaterally Cardiovascular:: Regular rate and rhythm, without murmur or gallop, Pulses 2+ all extremities, capillary refill, <2 seconds all extremities Abdomen:: Bowel sounds positive, soft, non-tender, non-distended, no hepatosplenomegaly, masses or bruits noted Neurological:: Patient is alert, and oriented, cranial nerves, motor/sensory/ cerebellar, exams w/o gross deficits, to observation Psychiatric:: Patient exhibits, appropriate attention, emotion and affect - Expanded Lower Extremity Exam right Hip/Pelvis exam: Present: other (greater trochanter extending lateral fascia down almost knee, incision does not appear to be draining through bandage. Bandage is intact. Patient has no significant pain on palpation of the area. Skin is warm to the touch) Course Vital Signs Temperature 101.3 F H 08/19/17 18:21 Pulse Rate 104 H 08/19/17 18:21 Respiratory Rate 20 08/19/17 18:21 Blood Pressure 106/55 08/19/17 18:21 Pulse Oximetry 96 08/19/17 18:21 Temperature 101.3 F H 08/19/17 18:21 Pulse Rate 104 H 08/19/17 18:21 Respiratory Rate 20 08/19/17 18:21 Blood Pressure 106/55 08/19/17 18:21 Pulse Oximetry 96 08/19/17 18:21 Fever - MDM Narrative Medical decision making narrative: Peripheral IV started with 1 L normal saline bolus. Sepsis labs ordered including blood culture 2, urine culture and other appropriate labs. White count returns at 14.1 with 70% neutrophils and 17% bands. Bilirubin is elevated at 1.9, creatinine is appropriate, liver enzymes appropriate, CRP greater than 180, but lactate is less than 1. Rocephin 1 g given IV and hospitalist consulted. Patient will be admitted inpatient for UTI sepsis. - Differential Diagnosis Likely: cellulitis, fever of unknown origin, community acquired pneumonia, pyelonephritis, sepsis - Medical Records Attestation: I reviewed the patient's medical records. - Lab Data Attestation: I reviewed the patient's lab results. Result diagrams: 08/19/17 18:57 08/19/17 18:57 - Radiology Data Attestation: I reviewed the patient's radiology results. Disposition Clinical Impression: Sepsis, UTI (urinary tract infection) Disposition: 02 To [facility] – [place] Acute Care Condition: Stable Prescriptions: No Action Cholecalciferol (Vitamin D3) [Vitamin D3] 1,000 unit PO Q2D #0 Ropinirole HCl 0.75 mg PO HS Selenium 200 mcg PO Q2D Curcumin 1 tab PO Q2D Mag Hydrox/Aluminum Hyd/Simeth [Alum-Mag Hydroxide-Simeth Liq] 30 ml PO Q4H PRN PRN Reason: Epigastric Distress Peg 3350 238 G Bottle [Miralax] 17 gm PO BID Senna + Docusate [Senna Plus Tablet] 2 tab PO BID PRN PRN Reason: Constipation Peg 3350 238 G Bottle [Miralax] 17 gm PO DAILY PRN PRN Reason: Constipation Referrals: Karolyn Barahona MD [Primary Care Provider] - Time of Disposition: 21:20 - Seen By: physician
--- NOTE | 2017-08-19 20:39 | XRay Report ---
Indication: fuo PROCEDURE: XR chest 2V: Encounter: Initial Comparison: None. Findings: There is consolidation in the inferior medial left lung base suspicious for a developing atelectasis and/or pneumonia. No definite pleural effusion. There is mild prominence of the cardiac silhouette. There is pulmonary vascular congestion without definite overt interstitial pulmonary edema. No pneumothorax. No definite acute appearing displaced rib fracture. The trachea is midline. There is mild tortuosity of the descending thoracic aorta. IMPRESSION: Atelectasis and/or pneumonia in the inferior medial left lung base posteriorly without definite pleural effusion. .
--- NOTE | 2017-08-19 20:41 | XRay Report ---
Indication: fever post op PROCEDURE: XR femur RT 2V: Encounter: Initial Comparison: None. Findings: Patient has had a side plate and screw fixation of the femoral diaphysis with long screws traversing the distal femoral condyles. There is also left hip arthroplasty with long intramedullary component that passes to about the mid right femoral diaphysis. No definite dislocation. There is a persistent oblique fracture across the mid diaphysis of the femur. There are surgical tables along the medial right thigh. IMPRESSION: Anatomic alignment status post right lower extremity sideplate and screw fixation with right total hip arthroplasty. .
[2017-08-19] MEDS ORDERED: CEFTRIAXONE (ER USE ONLY) 1 GM in NS 100 ML IV ONE (20:58)
[2017-08-19] MEDS: SALINE FLUSH 10ml SYRINGE IVF PRN (21:55)
--- NOTE | 2017-08-19 22:30 | History & Physical Report ---
History of Present Illness Date: 09/02/17 Chief complaint: high fever HPI: This is a 77 y/o female who recently 2 weeks ago had ORIF of right femur fracture repaired by Dr. Adair. The pateint had onset of high fever today. She states that she has a chronic dry cough that has not changed. She describes chills and sweats as well. Workup in the ED demonstrates an obvious infection. cXR suggest a possible left lingular pneumonia. The patient will be admitted for HcAP coverage initially. Note minimal resp sx. The patient does have Parkinson's disease and mild dementia. Her is present and provides a large majority of the history. Review of Systems Review of systems: no headache, no change in vision, no congestion, no chest pain, cough dry, non productive, no abdomen pain, no nausea/vomiting. dressing on right leg is not demonstrating discharge. mild pain to her right hip , but no worse recently. increased frequency of urination but no burning with urination. Patient has had increased stool output today. Recently on bowel regimen due to constipation. No blood in urine or stool, no skin rashes, no focal neuro complaints. 12 point ROS otherwise negative except for outlined above. Past Medical History Medical History: Medical History (Last Reviewed 03/09/17 @ 09:53 by Dayna Pope MD) Tremor (Chronic) Balance disorder (Chronic) Osteoporosis (Chronic) Surgical History: Right hip replacement (04/2014) in [place]. Uterine surgery for endometriosis and appendectomy in 1964. D&C. Lt Hip Fadi A 12-04-16 Family History: Family History (Last Reviewed 03/09/17 @ 09:53 by Dayna Pope MD) Mother Stroke Father Heart attack DVT (deep venous thrombosis) COPD (chronic obstructive pulmonary disease) Sister Brain tumor Family History: As Above - Social History Smoking status: Never smoker Substance use type: does not use Alcohol intake frequency: does not drink Current occupational status: retired Previous occupational history: bookeeper, [employer] Does patient use chewing tobacco?: No Current residence: Apartment/Private Home Medications Home Medications Medication Instructions Recorded Confirmed Type Cholecalciferol (Vitamin D3) 1,000 unit PO Q2D #0 03/05/16 08/19/17 History [Vitamin D3] Selenium 200 mcg PO Q2D 01/01/17 08/19/17 History Senna + Docusate [Senna Plus 2 tab PO BID PRN 01/01/17 08/19/17 History Tablet] Curcumin 1 tab PO Q2D 08/05/17 08/19/17 History Mag Hydrox/Aluminum Hyd/Simeth 30 ml PO Q4H PRN 08/19/17 08/19/17 History [Alum-Mag Hydroxide-Simeth Liq] Peg 3350 238 G Bottle [Miralax] 17 gm PO BID 08/19/17 08/19/17 History Peg 3350 238 G Bottle [Miralax] 17 gm PO DAILY PRN 08/19/17 08/19/17 History Ropinirole [Requip] 0.25 mg PO TID PRN 08/20/17 08/20/17 History Tramadol [Ultram] 50 mg PO HS PRN 08/20/17 08/20/17 History Acetaminophen [Tylenol] 500 mg PO Q5H PRN tab 08/25/17 Rx Acidoph/L.bulg/Bif.b/S.thermop 2 cap PO TIDWM 14 Days tab 08/25/17 Rx [Bacid Caplet] Enoxaparin Sodium [Lovenox] 40 mg SQ DAILY syringe 08/25/17 Rx Levofloxacin [Levaquin] 750 mg PO Q2D #4 tab 08/25/17 Rx Ropinirole [Requip] 1.25 mg PO HS tab 08/25/17 Rx Allergies Allergy/AdvReac Type Severity Reaction Status Date / Time lorazepam AdvReac Intermediate Confusion Verified 08/19/17 18:35 Exam Vital Signs: Temperature 98.9 F 08/19/17 21:06 Pulse Rate 99 08/19/17 21:56 Respiratory Rate 20 08/19/17 18:21 Blood Pressure 123/60 08/19/17 21:49 Pulse Oximetry 96 08/19/17 21:56 Telemetry Rhythm: Sinus Rhythm - Constitutional Present: mild distress, well nourished, well developed, average body habitus, cooperative - Routine HEENT Exam Head: Present: normocephalic, atraumatic Eye: Present: EOMI ENT: Present: mucous membranes dry - Routine Neck Exam Present: supple, full ROM - Routine Respiratory Exam Comments: diminished breath sounds. no rhonchi appreciated (carefully auscultated and could hear easily), no wheezes. - Routine Cardiovascular Exam Present: RRR, no murmur. Absent: S3 - Routine Abdominal Exam Present: soft, normoactive bowel sounds, non distended, non tender - Routine Extremities Exam Comments: dressing on right hip along the entire length of the femur without any evidence of drainage. ROM intact - Routine Skin Exam Present: intact, dry - Routine Neurological Exam Present: alert, oriented X3, moving all extremities, normal tone - Routine Psychiatric Exam Present: normal affect. Absent: normal thought process Results - Labs CBC & Chem 7: 08/24/17 04:03 08/24/17 04:03 Labs: reviewed and will be discussed below. pCXR possible left lingular pneumonia right hip/femur without evidence of acute process other than hardware. Assessment and Plan (1) Osteoporosis Status: Chronic (2) Balance disorder Status: Chronic (3) Parkinson disease Status: Acute (4) Dehydration Status: Acute (5) Sepsis Status: Acute (6) UTI (urinary tract infection) Status: Acute (7) Healthcare-associated pneumonia Status: Acute Assessment and Plan: 1. UTI acute POA: currently on HCAP coverage (zosyn, levaquin, vanco) Rocephin in ED. cx pending 2. sepsis acute POA: fluids, LA okay, repeat labs in the am 3. HCAP acute POA: pt with minimal resp sx. CXR does raise the concern. With high bands tonight will broaden coverage in case more of an unappreciated resp illness. simplify ANB rapidly as clinically indicated. 4. s/p ORIF of prox femur fx acute POA; Dr. Adair contacted , 2 weeks post op. he reviewed films, no obvious issues. will see patient as a courtesy tomorrow to exclude any surgical concerns 5. Hyponatremia acute POA: hypovolemia. replace NS and recheck 6. Parkinson's disease chronic POA; currently would appear to be only on mirapex, continue 7. Dementia chronic PO: with Parkinson's ds could be related. stable, to be aware of 8. DVT ppx; SCD, heparin 9. gastric ppx: PPI Please see my separate H and P from 08/20/17 with additional information.-Dr Boothe DVT Prophylaxis: SCD's, SQ Heparin GI Prophylaxis: Protonix Resuscitation Status: Full Code - Time spent with patient Time with patient PN: 30 minutes - Physician Narrative Physician: Jeanette Boothe MD Narrative: Date: 08/19/17 Time: 2225 Hospital Course Summary Disclaimer: The visit summary below is not to be considered part of the above Progress Note.
[2017-08-19] MEDS ORDERED: MORPHINE SULFATE 4mg INJECTION IVP PRN (22:36)
[2017-08-19] MEDS ORDERED: PANTOPRAZOLE 40 MG INJECTION IVP SCH (22:36)
[2017-08-19] MEDS ORDERED: VANCOMYCIN - PHARMACY CONSULT MC ONE (22:36)
[2017-08-19] MEDS ORDERED: ALBUTEROL 2.5mg/3ml (0.083%) NEB AEROSOL PRN (23:31)
[2017-08-19] MEDS: BUDESONIDE INH.SOLN 0.5mg/2ml NEB AEROSOL SCH (23:34)
[2017-08-19] MEDS: PIPERACILLIN/TAZOBACTAM 3.375 GM in NS 100 ML IV SCH (23:53)
[2017-08-19] MEDS: NS 1,000 ML IV SCH (23:53)
[2017-08-20] MEDS: ACETAMINOPHEN 325 MG TABLET PO PRN (00:02)
[2017-08-20] MEDS: HEPARIN SUB-Q 5,000units/0.5ml INJECTION SQ SCH ×3 (00:10→17:25)
[2017-08-20] MEDS: HYDROCODONE/APAP 5mg/325mg TABLET PO PRN ×2 (00:10→22:05)
[2017-08-20] MEDS: PIPERACILLIN/TAZOBACTAM 3.375 GM in NS 100 ML IV SCH (05:03)
--- NOTE | 2017-08-20 06:43 | Pharmacy Consult-Antibiotics ---
Pharmacy Consult-Vancomycin - Laboratory Information WBC 14.1 T/MM3 (4.5-11.0) H 08/19/17 18:57 BUN 17.0 MG/DL (7-17) 08/20/17 04:08 Creatinine 0.7 mg/dL (0.7-1.2) 08/20/17 04:08 - Consult Information VANCOMYCIN CONSULT: Dx: UTI sepsis Current Renal Fx: SCr = 0.7mg/dl. Will give Vancomycin 1,250mg IV q12hrs. Will continue to monitor and adjust regimen to maintain therapeutic levels. Thank you.
[2017-08-20] MEDS: LEVOFLOXACIN 750 MG/150 ML IV SCH (06:51)
[2017-08-20] MEDS: SALINE FLUSH 10ml SYRINGE IVF PRN ×2 (07:33→14:03)
[2017-08-20] MEDS: ONDANSETRON 4 MG/2 ML INJECTION IVP PRN ×2 (07:33→14:03)
[2017-08-20] MEDS: BUDESONIDE INH.SOLN 0.5mg/2ml NEB AEROSOL SCH (08:08)
[2017-08-20] MEDS: ALBUTEROL 2.5mg/3ml (0.083%) NEB AEROSOL SCH ×2 (08:08→20:06)
[2017-08-20] MEDS ORDERED: POLYETHYL. GLYCOL 3350 BOTTLE 238 GM PO SCH (09:00)
[2017-08-20] MEDS ORDERED: LEVOFLOXACIN 500 MG/100 ML PREMIX IV SCH (09:00)
--- NOTE | 2017-08-20 09:57 | Orthopedic Consult Note ---
Orthopedic Consultation HPI - Consultation Info Consult Date: 08/20/17 Attending Physician: Jeanette oBothe MD - History of Present Illness Mrs. Rae is a 77 y/o admitted yesterday for HCAP and UTI. She reports she had high fevers for one day, and was brought into ER yesterday evening for evaluation. She had been feeling achy, chills, and nauseated. Reports chronic cough, no change in cough, denies sputum production. No s/s of dysuria, urgency. WBC 14.4, CRP 180, gm stain- negative gm rods, E coli on prelim BC She was at [facility] [place] at [facility] recovering from ORIF right periprosthetic femur fracture by Dr. Adair on 08/06/17. She is had been non-weight bearing with flat foot/toe transfers to chair or wheelchair. Denies any pain with right leg except if "PT works to hard with leg". Hgb 8.7 and stable from previous hospital stay. Review of Systems - Constitutional Constitutional: Present: fever(s) - Cardiovascular Cardiovascular: Absent: chest pain, syncope - Respiratory Respiratory: Present: cough (chronic cough). Absent: dyspnea, chest congestion , excessive phlegm production - Gastrointestinal Gastrointestinal: Present: nausea. Absent: diarrhea, vomiting - Musculoskeletal Musculoskeletal: Present: as per HPI. Absent: muscle cramps PFSH Patient Stated Medical History Parkinson's Disease Yes Cataracts Yes: just starting possibly Hypotension Yes Other Respiratory Yes: chronic cough for years Hx Urinary Tract Infection Yes: current Other Musculoskeletal Yes: parkinisons, restless legs, osteoporosis Blood Transfusions Yes: with recent hip surgery Endometriosis Yes Infertility Yes Post Menopausal Yes Clinic Medical History (Last Reviewed 03/09/17 @ 09:53 by Dayna Pope MD) Tremor (Chronic Medical) Balance disorder (Chronic Medical) Osteoporosis (Chronic Medical) Surgical History: Right hip replacement (04/2014) in [place]. Uterine surgery for endometriosis and appendectomy in 1965. D&C. Lt Hip Fadi A 12-04-16 Family History: Family History (Last Reviewed 03/09/17 @ 09:53 by Dayna Pope MD) Mother Stroke Father Heart attack DVT (deep venous thrombosis) COPD (chronic obstructive pulmonary disease) Sister Brain tumor - Social History Smoking status: Never smoker second hand exposure: No Substance use type: does not use Alcohol intake: never Alcohol intake frequency: does not drink Housing: house Household members: spouse Current occupational status: retired Previous occupational history: bookeeper, [employer] Does patient use chewing tobacco?: No Current residence: Apartment/Private Home Medications Home Medications Medication Instructions Recorded Confirmed Type Cholecalciferol (Vitamin D3) 1,000 unit PO Q2D #0 03/05/16 08/19/17 History [Vitamin D3] Ropinirole HCl 0.75 mg PO HS 01/01/17 08/19/17 History Selenium 200 mcg PO Q2D 01/01/17 08/19/17 History Senna + Docusate [Senna Plus 2 tab PO BID PRN 01/01/17 08/19/17 History Tablet] Curcumin 1 tab PO Q2D 08/05/17 08/19/17 History Mag Hydrox/Aluminum Hyd/Simeth 30 ml PO Q4H PRN 08/19/17 08/19/17 History [Alum-Mag Hydroxide-Simeth Liq] Peg 3350 238 G Bottle [Miralax] 17 gm PO BID 08/19/17 08/19/17 History Peg 3350 238 G Bottle [Miralax] 17 gm PO DAILY PRN 08/19/17 08/19/17 History Ropinirole [Requip] 0.25 mg PO TID PRN 08/20/17 08/20/17 History Tramadol [Ultram] 50 mg PO HS PRN 08/20/17 08/20/17 History Allergies Allergy/AdvReac Type Severity Reaction Status Date / Time lorazepam AdvReac Intermediate Confusion Verified 08/19/17 18:35 Exam - Constitutional Vital Signs: Temperature 99.8 F 08/20/17 08:15 Pulse Rate 85 08/20/17 08:15 Respiratory Rate 18 08/20/17 08:15 Blood Pressure 106/54 08/20/17 08:15 Pulse Oximetry 84 L 08/20/17 08:15 General: cooperative, no acute distress, frail appearing Nutritional Appearance: thin Orientation: alert (not oriented to time or place.), awake - RLE Postoperative Appearance: extremity compartments are soft and nontender, neurovascullary intact to extremities Skin: no rashes or lesions noted Neurological: no deficits, normal to light touch Vascular: dorsalis pedis pulse within normal limits, capillary refill <2 seconds Right Lower Extremity comments: mepilex dressing to right lateral thigh - Respiratory Respiratory Exam: non-labored - Cardiac Cardiovascular exam: pedal pulses intact - Labs Result Diagrams: 08/20/17 04:07 08/20/17 04:08 Abnormal lab results 08/20/17 08/20/17 Range/Units 04:07 04:08 WBC 14.4 H (4.5-11.0) T/MM3 RBC 2.72 L (4.00-5.20) M/MM3 Hgb 8.7 L (12-16) GM/DL Hct 27.3 L (36-46) % MCV 100.4 H (80-100) UM3 RDW Std Deviation 54.1 H (36.9-50.2) FL Plt Count 443 H (130-400) T/MM3 Neutrophils % (Manual) 75.0 H (33-66) % Band Neutrophils % 14.0 H (0-6) % Lymphocytes % (Manual) 4.0 L (23-45) % Neutrophils # (Manual) 10.8 H (1.8-7.7) T/MM3 Lymphocytes # (Manual) 0.6 L (1-4.8) T/MM3 Basophils # (Manual) 0.3 H (0-0.2) T/MM3 Potassium 3.5 L (3.6-5) MEQ/L Chloride 108 H (98-107) MEQ/L Glucose 126 H (65-110) MG/DL Calcium 7.9 L (8.4-10.2) MG/DL Total Bilirubin 1.60 H (0.20-1.30) MG/DL Alkaline Phosphatase 172 H (38-126) U/L Total Protein 5.6 L (6.3-8.2) g/dL Albumin 2.8 L (3.5-5.0) g/dL Albumin/Globulin Ratio 1.0 L (1.1-2.2) RATIO H & H 08/20/17 Range/Units 04:07 Hgb 8.7 L (12-16) GM/DL Hct 27.3 L (36-46) % Impression and Recommendation (1) Status post open reduction and internal fixation (ORIF) of fracture with nonunion Problem details: S/P ORIF Right periprosthetic femur fracture Current visit: Yes Status: Acute S/P ORIF Right periprosthetic femur fracture by Dr. Adair 08/06/17. HGB stable, Hospitalist managing medically, current anticoagulation therapy- heparin SC q8hr Right leg surgical dressing c/d/i, no s/s of infection or post-op concerns. PT/OT for mobility/transfers- patient non-weight bearing right leg except for flat foot for transfers to chair/wheelchair Hospital Course Summary Disclaimer: The visit summary below is not to be considered part of the above Progress Note.
--- NOTE | 2017-08-20 10:22 | History & Physical Report ---
History of Present Illness Date: 08/20/17 (Please see overnight teledoc H&P as well.) Chief complaint: Fever, chills HPI: This is a 77 y/o female who 2 weeks ago had ORIF of right femur fracture repaired by Dr. Adair. The patient had onset of high fever yesterday. Workup in the ED demonstrates an obvious UTI and CXR suggest a possible left lingular pneumonia. She states that she has a chronic dry cough that has not changed. The patient was admitted for HcAP coverage. The patient does have Parkinson's disease and mild dementia. She was living at home with her prior to her femur fx and has been in [facility] at the [facility] since. Review of Systems All systems PM: 10-point ROS was reviewed, no additional remarkable complaints except (chronic cough, fatigue, nausea, restless legs) Past Medical History Medical History: Medical History (Last Reviewed 03/09/17 @ 09:53 by Dayna Pope MD) Tremor (Chronic) Balance disorder (Chronic) Osteoporosis (Chronic) Medical History Updates: restless leg syndrome, Parkinsons, chronic low BP with occ orthostatic sxs Surgical History: Right hip replacement (04/2014) in [place]. Uterine surgery for endometriosis and appendectomy in 1964. D&C. Lt Hip Fadi A 12-04-16. ORIF R femur - Dr Adair 08/10. L shoulder surgery with Dr Adair Family History: Family History Mother Stroke Father Heart attack DVT (deep venous thrombosis) COPD (chronic obstructive pulmonary disease) Sister Brain tumor Brother Stomach cancer Family History: As Above - Social History Smoking status: Never smoker Substance use type: does not use Alcohol intake frequency: does not drink Household members: spouse Current occupational status: retired Previous occupational history: senior accountant analyst Does patient use chewing tobacco?: No Current residence: Apartment/Private Home (cuurently in [facility] at [facility] ) Social history: PCP - Dr Karolyn Barahona Medications Home Medications Medication Instructions Recorded Confirmed Type Cholecalciferol (Vitamin D3) 1,000 unit PO Q2D #0 03/05/16 08/19/17 History [Vitamin D3] Ropinirole HCl 0.75 mg PO HS 01/01/17 08/19/17 History Selenium 200 mcg PO Q2D 01/01/17 08/19/17 History Senna + Docusate [Senna Plus 2 tab PO BID PRN 01/01/17 08/19/17 History Tablet] Curcumin 1 tab PO Q2D 08/05/17 08/19/17 History Mag Hydrox/Aluminum Hyd/Simeth 30 ml PO Q4H PRN 08/19/17 08/19/17 History [Alum-Mag Hydroxide-Simeth Liq] Peg 3350 238 G Bottle [Miralax] 17 gm PO BID 08/19/17 08/19/17 History Peg 3350 238 G Bottle [Miralax] 17 gm PO DAILY PRN 08/19/17 08/19/17 History Ropinirole [Requip] 0.25 mg PO TID PRN 08/20/17 08/20/17 History Tramadol [Ultram] 50 mg PO HS PRN 08/20/17 08/20/17 History Allergies Allergy/AdvReac Type Severity Reaction Status Date / Time lorazepam AdvReac Intermediate Confusion Verified 08/19/17 18:35 Exam Vital Signs: Temperature 99.8 F 08/20/17 08:15 Pulse Rate 85 08/20/17 08:15 Respiratory Rate 18 08/20/17 08:15 Blood Pressure 106/54 08/20/17 08:15 Pulse Oximetry 84 L 08/20/17 08:15 Height/Weight/BMI: Height 1.52 m Weight 47.1 kg Body Mass Index 20.0 - Constitutional Present: no acute distress, well nourished, well developed - Routine HEENT Exam Head: Present: normocephalic, atraumatic Eye: Present: EOMI, PERRL ENT: Present: mucous membranes moist, oropharynx clear - Routine Neck Exam Present: supple. Absent: lymphadenopathy, thyromegaly - Routine Respiratory Exam Present: CTA bilaterally. Absent: wheezes - Routine Cardiovascular Exam Present: RRR, no murmur - Routine Abdominal Exam Present: soft, normoactive bowel sounds. Absent: tenderness, distended - Routine Extremities Exam Present: no edema, normal capillary refill - Routine Skin Exam Present: dry, warm - Routine Neurological Exam Present: alert, CN II-XII intact - Routine Psychiatric Exam Present: normal affect, cooperative Results - Labs CBC & Chem 7: 08/20/17 04:07 08/20/17 04:08 - Imaging and Cardiology Chest x-ray Additional comments: Date of Exam: 08/19/17 Indication: fuo PROCEDURE: XR chest 2V: Findings: There is consolidation in the inferior medial left lung base suspicious for a developing atelectasis and/or pneumonia. No definite pleural effusion. There is mild prominence of the cardiac silhouette. There is pulmonary vascular congestion without definite overt interstitial pulmonary edema. No pneumothorax. No definite acute appearing displaced rib fracture. The trachea is midline. There is mild tortuosity of the descending thoracic aorta. IMPRESSION: Atelectasis and/or pneumonia in the inferior medial left lung base posteriorly without definite pleural effusion. femur xray Additional comments: IMPRESSION: Anatomic alignment status post right lower extremity sideplate and screw fixation with right total hip arthroplasty. Assessment and Plan (1) Osteoporosis Current visit: No Status: Chronic (2) Balance disorder Current visit: No Status: Chronic (3) Parkinson disease Current visit: No Status: Acute (4) Dehydration Current visit: No Status: Acute (5) Sepsis Current visit: Yes Status: Acute (6) UTI (urinary tract infection) Current visit: Yes Status: Acute (7) Healthcare-associated pneumonia Current visit: Yes Status: Acute Assessment and Plan: Assessment Sepsis - SIRS: leukocytosis, tachy, temp (Source: urine/lungs) E. coli bacteremia UTI HCAP s/p ORIF proximal femur 08/06/17 (Dr Adair) Hyponatremia (135)- POA Normocytic anemia - POA - likely from recent blood loss assoc with surgery Thrombocytopenia - POA Parkinson's Dementia Plan Admit, IP - stay expected to exceed two overnights for tx of HCAP/UTI Zosyn, levaquin vanco for HCAP and UTI. Had Rocephin in ER. Duonebs and Budesonide. Dr. Adair contacted and reviewed films, no obvious issues. Will see patient to exclude any surgical concerns. IVF's for sepsis, hyponatremia DVT ppx: heparin Code status: DNR PCP- Dr. Karolyn Barahona 08/20/2017-2:45 PM-I examined the patient independently. I reviewed this chart, the patient history, and the HOME ENERGY RATER's/PA's documented findings as above. We discussed and formulated the assessment and plan as above with the additions below.-Dr. Boothe The patient was seen in her room this afternoon. She complains of nausea and not feeling well in general. She has had no vomiting. She denies any shortness of breath. She denies any pain. Her appetite is been poor for a couple of days. She had fever starting the night before last. She has noticed urinary frequency of small amounts but no dysuria. She does complain of restless legs and states that her medication does not work very well. Lab today shows continued elevated white count of 14.4. Bands are 14 down from 17. Urine culture was positive for Escherichia coli. One of 2 blood cultures are positive for Escherichia coli. Sensitivities on both the urine and blood are pending. Temperature was high as 101.6 but is currently 99.8. On exam, she is alert and oriented and in no acute distress. HEENT reveals oropharynx moist. Neck supple. Chest is clear to auscultation. Cardiovascular reveals a regular rate and rhythm. Abdomen is soft and nontender with positive bowel sounds. Extremities are free of edema. Impression and plan Sepsis likely secondary to Escherichia coli UTI and bacteremia Escherichia coli UTI possibly related to recent Askew catheter when hospitalized 2 weeks ago-I doubt she has associated pneumonia. Continue Levaquin for now. Discontinue Rocephin, Vanco, Zosyn. Await sensitivities. If she has continued nausea, consider a different antibiotic other than Levaquin. Is currently dosed at every 48 hours. Recheck lab tomorrow. Regarding poorly controlled restless legs, could increase bedtime dose of equip by 0.5 mg weekly until symptoms are well controlled or when up to maximum dose of 4 mg at bedtime. She currently takes 0.25 mg by mouth when necessary for restless legs up to 5 tablets a day. Hold pantoprazole. Restart if the patient is having GERD or dyspepsia DVT Prophylaxis: SQ Heparin - Physician Narrative Narrative: Date: 08/20/17 Time: 101 Hospital Course Summary Disclaimer: The visit summary below is not to be considered part of the above Progress Note. Hospital Course: 08/20/17 Admit, IP - stay expected to exceed two overnights for tx of HCAP/UTI Zosyn, levaquin vanco for HCAP and UTI. Had Rocephin in ER. Duonebs and Budesonide. Dr. Adair contacted and reviewed films, no obvious issues. Will see patient as a courtesy to exclude any surgical concerns. IVF's for sepsis, hyponatremia DVT ppx: heparin Code status: DNR PCP- Dr. Kaorlyn Barahona
[2017-08-20] MEDS: ROPINIROLE 0.25 MG TABLET PO PRN ×2 (11:00→20:41)
[2017-08-20] MEDS ORDERED: PIPERACILLIN/TAZOBACTAM 2.25 GM in NS 100 ML IV SCH (12:00)
[2017-08-20] MEDS: NS 1,000 ML IV SCH ×2 (13:57→22:07)
[2017-08-20] MEDS ORDERED: ROPINIROLE 0.25 MG TABLET PO SCH (21:00)
[2017-08-21] MEDS: NS 1,000 ML IV SCH ×2 (03:45→20:32)
[2017-08-21] MEDS ORDERED: POLYETHYL GLYCOL 3350 17gm PACKET PO PRN (09:34)
[2017-08-21] MEDS ORDERED: TRAMADOL 50 MG TABLET PO PRN (09:34)
[2017-08-21] MEDS ORDERED: ROPINIROLE 1 MG TABLET PO SCH (09:35)
--- NOTE | 2017-08-21 09:36 | Orthopedic Progress Note ---
Date: Date: 08/21/17 Time: 931 Subjective/Severity of Illness: Yari is lying in bed this morning during rounds. She "has felt better", but was able to sleep last night. She denies any concerns with her right leg. S/P ORIF right periprosthetic femur fracture. Pain has been well controlled. Exam - Constitutional Vital Signs: Temperature 99.5 F 08/21/17 07:34 Pulse Rate 86 08/21/17 07:34 Respiratory Rate 18 08/21/17 07:34 Blood Pressure 150/77 H 08/21/17 07:34 Pulse Oximetry 91 08/21/17 07:34 General: cooperative, no acute distress, frail appearing Nutritional Appearance: thin Orientation: alert (not oriented to time or place.), awake Limitations: altered mental status - RLE Postoperative Appearance: extremity compartments are soft and nontender, neurovascullary intact to extremities Neurological: no deficits, normal to light touch Vascular: dorsalis pedis pulse within normal limits Right Lower Extremity comments: Right lateral thigh surgical incision approximated with bossman in place, no erythema or drainage, Mepilex dressing c/d/i. - Respiratory Respiratory Exam: non-labored - Cardiac Cardiovascular exam: pedal pulses intact - Labs Result Diagrams: 08/21/17 07:36 08/21/17 07:36 Abnormal lab results 08/21/17 08/21/17 Range/Units 07:36 07:36 WBC 11.2 H (4.5-11.0) T/MM3 RBC 2.81 L (4.00-5.20) M/MM3 Hgb 8.9 L (12-16) GM/DL Hct 27.9 L (36-46) % RDW Std Deviation 54.5 H (36.9-50.2) FL Plt Count 409 H (130-400) T/MM3 MPV 9.3 L (9.4-12.4) UM3 Neutrophils % (Manual) 79.0 H (33-66) % Lymphocytes % (Manual) 11.0 L (23-45) % Neutrophils # (Manual) 8.8 H (1.8-7.7) T/MM3 Chloride 112 H (98-107) MEQ/L BUN 20.0 H (7-17) MG/DL Creatinine 0.6 L (0.7-1.2) mg/dL BUN/Creatinine Ratio 33 H (6-26) RATIO Calcium 8.3 L (8.4-10.2) MG/DL Albumin 3.1 L (3.5-5.0) g/dL H & H 08/20/17 08/21/17 Range/Units 04:07 07:36 Hgb 8.7 L 8.9 L (12-16) GM/DL Hct 27.3 L 27.9 L (36-46) % Orthopedic Assessment and Plan (1) S/P ORIF (open reduction internal fixation) fracture Status: Acute Problem Details: S/P ORIF Right periprosthetic femur fracture Assessment and Plan: PT/OT, patient non-weight bearing, may use flat foot for transfers to chair for 6 weeks post op Patient to follow up with ortho outpatient 3 weeks post op- will remove bossman at that time. Keep covered with Mepilex Medically managed by hospitalist Thank you for consultation Hospital Course Summary Disclaimer: The visit summary below is not to be considered part of the above Progress Note. Hospital Course: 08/20/17 Admit, IP - stay expected to exceed two overnights for tx of HCAP/UTI Zosyn, levaquin vanco for HCAP and UTI. Had Rocephin in ER. Duonebs and Budesonide. Dr. Adair contacted and reviewed films, no obvious issues. Will see patient as a courtesy to exclude any surgical concerns. IVF's for sepsis, hyponatremia DVT ppx: heparin Code status: DNR PCP- Dr. Karolyn Barahona
--- NOTE | 2017-08-21 09:37 | Progress Note ---
- Date 08/21/17 Subjective: The patient was seen this morning in her room. She states she slept well last night and feels better this morning. She denies any nausea today but doesn't have much of an appetite. She states she is going to try to make herself eat something today. She is drinking a little bit of her supplement shake. She denies any shortness of breath. She denies pain anywhere. She specifically denies abdominal pain or dysuria. She had some mild loose stools prior to admission that no stools since that time. Restless legs did better last night. Objective Vital signs: Temperature 99.5 F 08/21/17 07:34 Pulse Rate 86 08/21/17 07:34 Respiratory Rate 18 08/21/17 07:34 Blood Pressure 150/77 H 08/21/17 07:34 Pulse Oximetry 91 08/21/17 07:34 Height/Weight/BMI: Height 1.52 m Weight 45.6 kg Body Mass Index 20.0 Comments: MAXIMUM TEMPERATURE 100.5. Current temperature 99.5. Pulse 86. Pressure 150/77. O2 sat 91% on room air GEN-alert, oriented, no acute distress HEENT-oropharynx is moist NECK-supple CV-regular rate and rhythm CHEST-clear to auscultation bilaterally ABD-soft, nontender with positive bowel sounds -no Askew EXT-no edema NEURO-no focal deficits SKIN-warm and dry, no rashes Results - Labs CBC & Chem 7: 08/21/17 07:36 08/21/17 07:36 Labs: Bands today are 3 down from 14 Microbiology Results: Escherichia coli from urine culture shows de la cruz sensitivity to all antibiotics tested Sensitivities from blood culture on Escherichia coli are pending Assessment and Plan (1) Osteoporosis Current visit: No Status: Chronic (2) Balance disorder Current visit: No Status: Chronic (3) Parkinson disease Current visit: No Status: Acute (4) Dehydration Current visit: No Status: Acute (5) Sepsis Current visit: Yes Status: Acute (6) UTI (urinary tract infection) Current visit: Yes Status: Acute (7) Healthcare-associated pneumonia Current visit: Yes Status: Acute Assessment and Plan: Assessment Sepsis - SIRS: leukocytosis, tachy, temp (Source: urine/lungs) E. coli bacteremia Escherichia coli UTI Atelectasis versus HCAP-most likely atelectasis s/p ORIF proximal femur 08/06/17 (Dr Adair) Hyponatremia (135)- POA-resolved Normocytic anemia - POA - likely from recent blood loss assoc with surgery Thrombocytosis - POA Parkinson's Dementia Restless Legs Plan Zosyn, levaquin vanco for HCAP and UTI. Had Rocephin in ER. -On 08/20/2017 antibiotics were narrowed to Levaquin only for UTI Escherichia coli and bacteremia. Escherichia coli from UA is sensitive to Levaquin and all other antibiotics tested. Await results of sensitivities on blood culture. Discontinue budesonide and duo nebs. Dr. Adair did see the patient and does not feel that there are any orthopedic concerns. We'll increase activity as tolerated. DC IV fluids when taking by mouth well. Lovenox for DVT prophylaxis. Heparin was discontinued. Check renal panel and CBC tomorrow. Possible discharge back to [facility] in the next few days if the patient continues to improve. She will likely need 2 weeks of antibiotics for bacteremia. Increase Requip to 1 mg at at bedtime for restless legs. This can be titrated up at [facility] if symptoms are not adequately controlled. 08/20/2017-2:45 PM-I examined the patient independently. I reviewed this chart, the patient history, and the TAPE WEAVER's/PA's documented findings as above. We discussed and formulated the assessment and plan as above with the additions below.-Dr. Boothe The patient was seen in her room this afternoon. She complains of nausea and not feeling well in general. She has had no vomiting. She denies any shortness of breath. She denies any pain. Her appetite is been poor for a couple of days. She had fever starting the night before last. She has noticed urinary frequency of small amounts but no dysuria. She does complain of restless legs and states that her medication does not work very well. Lab today shows continued elevated white count of 14.4. Bands are 14 down from 17. Urine culture was positive for Escherichia coli. One of 2 blood cultures are positive for Escherichia coli. Sensitivities on both the urine and blood are pending. Temperature was high as 101.6 but is currently 99.8. On exam, she is alert and oriented and in no acute distress. HEENT reveals oropharynx moist. Neck supple. Chest is clear to auscultation. Cardiovascular reveals a regular rate and rhythm. Abdomen is soft and nontender with positive bowel sounds. Extremities are free of edema. Impression and plan Sepsis likely secondary to Escherichia coli UTI and bacteremia Escherichia coli UTI possibly related to recent Askew catheter when hospitalized 2 weeks ago-I doubt she has associated pneumonia. Continue Levaquin for now. Discontinue Rocephin, Vanco, Zosyn. Await sensitivities. If she has continued nausea, consider a different antibiotic other than Levaquin. Is currently dosed at every 48 hours. Recheck lab tomorrow. Regarding poorly controlled restless legs, could increase bedtime dose of equip by 0.5 mg weekly until symptoms are well controlled or when up to maximum dose of 4 mg at bedtime. She currently takes 0.25 mg by mouth when necessary for restless legs up to 5 tablets a day. Hold pantoprazole. Restart if the patient is having GERD or dyspepsia DVT Prophylaxis: Lovenox Resuscitation Status: Do Not Resuscitate - Physician Narrative Narrative: Date: 08/21/17 Time: 0933 Hospital Course Summary Disclaimer: The visit summary below is not to be considered part of the above Progress Note. Hospital Course: 08/20/17 Admit, IP - stay expected to exceed two overnights for tx of HCAP/UTI Zosyn, levaquin vanco for HCAP and UTI. Had Rocephin in ER. Duonebs and Budesonide. Dr. Adair contacted and reviewed films, no obvious issues. Will see patient as a courtesy to exclude any surgical concerns. IVF's for sepsis, hyponatremia DVT ppx: heparin Code status: DNR PCP- Dr. Karolyn Barahona 08/20/2017-2:45 PM-I examined the patient independently. I reviewed this chart, the patient history, and the TAPE WEAVER's/PA's documented findings as above. We discussed and formulated the assessment and plan as above with the additions below.-Dr. Boothe The patient was seen in her room this afternoon. She complains of nausea and not feeling well in general. She has had no vomiting. She denies any shortness of breath. She denies any pain. Her appetite is been poor for a couple of days. She had fever starting the night before last. She has noticed urinary frequency of small amounts but no dysuria. She does complain of restless legs and states that her medication does not work very well. Lab today shows continued elevated white count of 14.4. Bands are 14 down from 17. Urine culture was positive for Escherichia coli. One of 2 blood cultures are positive for Escherichia coli. Sensitivities on both the urine and blood are pending. Temperature was high as 101.6 but is currently 99.8. On exam, she is alert and oriented and in no acute distress. HEENT reveals oropharynx moist. Neck supple. Chest is clear to auscultation. Cardiovascular reveals a regular rate and rhythm. Abdomen is soft and nontender with positive bowel sounds. Extremities are free of edema. Impression and plan Sepsis likely secondary to Escherichia coli UTI and bacteremia Escherichia coli UTI possibly related to recent Askew catheter when hospitalized 2 weeks ago-I doubt she has associated pneumonia. Continue Levaquin for now. Discontinue Rocephin, Vanco, Zosyn. Await sensitivities. If she has continued nausea, consider a different antibiotic other than Levaquin. Is currently dosed at every 48 hours. Recheck lab tomorrow. Regarding poorly controlled restless legs, could increase bedtime dose of equip by 0.5 mg weekly until symptoms are well controlled or when up to maximum dose of 4 mg at bedtime. She currently takes 0.25 mg by mouth when necessary for restless legs up to 5 tablets a day. Hold pantoprazole. Restart if the patient is having GERD or dyspepsia Plan 08/21/2017 Zosyn, levaquin vanco for HCAP and UTI. Had Rocephin in ER. -On 08/20/2017 antibiotics were narrowed to Levaquin only for UTI Escherichia coli and bacteremia. Escherichia coli from UA is sensitive to Levaquin and all other antibiotics tested. Await results of sensitivities on blood culture. Discontinue budesonide and duo nebs. Dr. Adair did see the patient and does not feel that there are any orthopedic concerns. We'll increase activity as tolerated. DC IV fluids when taking by mouth well. Lovenox for DVT prophylaxis. Heparin was discontinued. Check renal panel and CBC tomorrow. Possible discharge back to [facility] in the next few days if the patient continues to improve. She will likely need 2 weeks of antibiotics for bacteremia. Increase Requip to 1 mg at at bedtime for restless legs. This can be titrated up at [facility] if symptoms are not adequately controlled.
[2017-08-21] MEDS: ENOXAPARIN 40 MG/0.4 ML INJECTION SQ SCH (09:57)
[2017-08-21] MEDS: ROPINIROLE 0.25 MG TABLET PO PRN ×2 (15:24→19:32)
[2017-08-21 18:48] VITALS: BMI 19.6
[2017-08-21] MEDS: HYDROCODONE/APAP 5mg/325mg TABLET PO PRN (20:36)
[2017-08-22] MEDS: NS 1,000 ML IV SCH (00:36)
[2017-08-22] MEDS: ACETAMINOPHEN 325 MG TABLET PO PRN ×2 (03:20→20:29)
[2017-08-22] MEDS: ROPINIROLE 0.25 MG TABLET PO PRN ×3 (03:21→18:09)
[2017-08-22] MEDS: LEVOFLOXACIN 750 MG/150 ML IV SCH (06:41)
[2017-08-22] MEDS: ENOXAPARIN 40 MG/0.4 ML INJECTION SQ SCH (10:54)
--- NOTE | 2017-08-22 15:36 | Progress Note ---
- Date 08/22/17 Subjective: The patient was seen this afternoon in her room. She was sitting up in a chair. She states she does not like the food, but she is eating cookies and applesauce without difficulties. She denies any abdominal pain, nausea or vomiting. She had 2 small bowel movements today. She is drinking well. She states she has a hard time swallowing the potassium pills. She didn't sleep very well last night because of her restless legs. Requip was increased slightly last night. Objective Vital signs: Temperature 97.9 F 08/22/17 11:50 Pulse Rate 83 08/22/17 11:50 Respiratory Rate 16 08/22/17 11:50 Blood Pressure 131/67 08/22/17 11:50 Pulse Oximetry 100 08/22/17 11:50 Height/Weight/BMI: Height 1.52 m Weight 49.9 kg Body Mass Index 19.6 Comments: Weight is 49.9 kg up from 46.7 kg on admission Afebrile, pulse 83, respirations 16, blood pressure 131/67, O2 sat are percent on room air GEN-alert, oriented, no acute distress HEENT-sclera anicteric, oropharynx is moist NECK-supple CV-regular rate and rhythm CHEST-clear to auscultation bilaterally ABD-soft, nontender with positive bowel sounds -no Askew EXT-no edema NEURO-no focal deficits SKIN-warm and dry Results - Labs CBC & Chem 7: 08/22/17 04:40 08/22/17 04:40 Labs: Magnesium is normal at 2.2 phosphorus normal at 2.8 Microbiology Results: Urine culture and both blood cultures show Escherichia coli sensitive to all antibiotics tested Assessment and Plan (1) Osteoporosis Current visit: No Status: Chronic (2) Balance disorder Current visit: No Status: Chronic (3) Parkinson disease Current visit: No Status: Acute (4) Dehydration Current visit: No Status: Acute (5) Sepsis Current visit: Yes Status: Acute (6) UTI (urinary tract infection) Current visit: Yes Status: Acute (7) Healthcare-associated pneumonia Current visit: Yes Status: Acute Assessment and Plan: Assessment Sepsis - SIRS: leukocytosis, tachy, temp (Source: urine/lungs) E. coli bacteremia Escherichia coli UTI Atelectasis doubt HCAP s/p ORIF proximal femur 08/06/17 (Dr Adair) Hyponatremia (135)- POA-resolved Normocytic anemia - POA - likely from recent blood loss assoc with surgery- stable Thrombocytosis - POA Parkinson's Dementia Restless Legs Hypokalemia Plan Continue Levaquin for Escherichia coli UTI and bacteremia. Discussed with pharmacist. We'll recheck renal panel tomorrow. May need to adjust dose for improving renal function. I think she will need 2 weeks of Levaquin. DC IV fluids. Encourage by mouth fluids. Potassium was replaced orally and will recheck tomorrow. Lovenox for DVT prophylaxis Recheck renal panel and CBC tomorrow. Increase Requip to 1.25 mg at bedtime for restless legs. This can be titrated up at correction if symptoms are not adequately controlled. Likely discharge to correction in the next 1-2 days. - Physician Narrative Narrative: Date: 08/22/17 Time: 1533 Hospital Course Summary Disclaimer: The visit summary below is not to be considered part of the above Progress Note. Hospital Course: 08/20/17 Admit, IP - stay expected to exceed two overnights for tx of HCAP/UTI Zosyn, levaquin vanco for HCAP and UTI. Had Rocephin in ER. Duonebs and Budesonide. Dr. Adair contacted and reviewed films, no obvious issues. Will see patient as a courtesy to exclude any surgical concerns. IVF's for sepsis, hyponatremia DVT ppx: heparin Code status: DNR PCP- Dr. Karolyn Barahona 08/20/2017-2:45 PM-I examined the patient independently. I reviewed this chart, the patient history, and the CONTROL TOWER RADIO OPERATOR's/PA's documented findings as above. We discussed and formulated the assessment and plan as above with the additions below.-Dr. Boothe The patient was seen in her room this afternoon. She complains of nausea and not feeling well in general. She has had no vomiting. She denies any shortness of breath. She denies any pain. Her appetite is been poor for a couple of days. She had fever starting the night before last. She has noticed urinary frequency of small amounts but no dysuria. She does complain of restless legs and states that her medication does not work very well. Lab today shows continued elevated white count of 14.4. Bands are 14 down from 17. Urine culture was positive for Escherichia coli. One of 2 blood cultures are positive for Escherichia coli. Sensitivities on both the urine and blood are pending. Temperature was high as 101.6 but is currently 99.8. On exam, she is alert and oriented and in no acute distress. HEENT reveals oropharynx moist. Neck supple. Chest is clear to auscultation. Cardiovascular reveals a regular rate and rhythm. Abdomen is soft and nontender with positive bowel sounds. Extremities are free of edema. Impression and plan Sepsis likely secondary to Escherichia coli UTI and bacteremia Escherichia coli UTI possibly related to recent Askew catheter when hospitalized 2 weeks ago-I doubt she has associated pneumonia. Continue Levaquin for now. Discontinue Rocephin, Vanco, Zosyn. Await sensitivities. If she has continued nausea, consider a different antibiotic other than Levaquin. Is currently dosed at every 48 hours. Recheck lab tomorrow. Regarding poorly controlled restless legs, could increase bedtime dose of equip by 0.5 mg weekly until symptoms are well controlled or when up to maximum dose of 4 mg at bedtime. She currently takes 0.25 mg by mouth when necessary for restless legs up to 5 tablets a day. Hold pantoprazole. Restart if the patient is having GERD or dyspepsia Plan 08/21/2017 Zosyn, levaquin vanco for HCAP and UTI. Had Rocephin in ER. -On 08/20/2017 antibiotics were narrowed to Levaquin only for UTI Escherichia coli and bacteremia. Escherichia coli from UA is sensitive to Levaquin and all other antibiotics tested. Await results of sensitivities on blood culture. Discontinue budesonide and duo nebs. Dr. Adair did see the patient and does not feel that there are any orthopedic concerns. We'll increase activity as tolerated. DC IV fluids when taking by mouth well. Lovenox for DVT prophylaxis. Heparin was discontinued. Check renal panel and CBC tomorrow. Possible discharge back to correction in the next few days if the patient continues to improve. She will likely need 2 weeks of antibiotics for bacteremia. Increase Requip to 1 mg at at bedtime for restless legs. This can be titrated up at correction if symptoms are not adequately controlled. Plan 08/22/2017 Continue Levaquin for Escherichia coli UTI and bacteremia. Discussed with pharmacist. We'll recheck renal panel tomorrow. May need to adjust dose for improving renal function. I think she will need 2 weeks of Levaquin. DC IV fluids. Encourage by mouth fluids. Potassium was replaced orally and will recheck tomorrow. Lovenox for DVT prophylaxis Recheck renal panel and CBC tomorrow. Increase Requip to 1.25 mg at bedtime for restless legs. This can be titrated up at correction if symptoms are not adequately controlled. Likely discharge to correction in the next 1-2 days.
[2017-08-22] MEDS: ROPINIROLE 1 MG TABLET PO SCH (20:30)
[2017-08-23] MEDS: ENOXAPARIN 40 MG/0.4 ML INJECTION SQ SCH (11:05)
[2017-08-23] MEDS: ROPINIROLE 0.25 MG TABLET PO PRN (14:41)
[2017-08-23] MEDS: LACTOBACILLUS (15B cfu) CAPSULE PO SCH (18:41)
[2017-08-23] MEDS: ROPINIROLE 1 MG TABLET PO SCH (20:15)
[2017-08-23] MEDS: TRAMADOL 50 MG TABLET PO SCH (20:16)
[2017-08-24] MEDS ORDERED: LEVOFLOXACIN 500 MG TABLET PO SCH (06:30)
[2017-08-24] MEDS ORDERED: LEVOFLOXACIN 750 MG TABLET PO SCH (08:00)
[2017-08-24] MEDS: LACTOBACILLUS (15B cfu) CAPSULE PO SCH ×3 (09:45→19:45)
[2017-08-24] MEDS: ENOXAPARIN 40 MG/0.4 ML INJECTION SQ SCH (09:47)
--- NOTE | 2017-08-24 10:00 | XRay Report ---
Indication: ORIF right periprosthetic femur fx PROCEDURE: AP and Lateral views of the Right Femur Encounter: Initial Comparison: August 19, 2017 Findings: Right hip prosthesis again noted. Lateral femoral side plate with multiple screws and cerclage wires is redemonstrated. No evidence of hardware loosening or failure. Stable alignment of the periprosthetic femoral fracture. The skin bossman have been removed. Impression: Findings as above. .
--- NOTE | 2017-08-24 12:58 | Progress Note ---
- Date 08/23/17 Subjective: This is a late note on Yari Rae. I did see her on 08/23/2017, but am dictating the note on 08/24/2017 The patient is getting along fairly well. Appetite is improving. She denies any shortness of breath. She had some mild loose stools. She denies any dysuria. She had some muscle cramps and did not sleep very well last night. Objective Vital signs: Temperature 97.5 F 08/24/17 11:20 Pulse Rate 82 08/24/17 11:20 Respiratory Rate 22 08/24/17 11:20 Blood Pressure 119/59 08/24/17 11:20 Pulse Oximetry 100 08/24/17 11:20 Height/Weight/BMI: Height 1.52 m Weight 47.4 kg Body Mass Index 19.6 Comments: GEN-alert, oriented, no acute distress CV-regular rate and rhythm CHEST-clear to auscultation bilaterally Abdomen-soft, nontender with positive bowel sounds -no Askew EXT-no edema NEURO-no focal deficits SKIN-warm and dry Results - Labs CBC & Chem 7: 08/24/17 04:03 08/24/17 04:03 Labs: 08/23/2017 Hemoglobin 9.2, white count 6.1, platelets 463, neutrophils 70% Sodium 144, potassium 3.5, BUN 12, creatinine 0.5 Assessment and Plan (1) Osteoporosis Current visit: No Status: Chronic (2) Balance disorder Current visit: No Status: Chronic (3) Parkinson disease Current visit: No Status: Acute (4) Dehydration Current visit: No Status: Acute (5) Sepsis Current visit: Yes Status: Acute (6) UTI (urinary tract infection) Current visit: Yes Status: Acute (7) Healthcare-associated pneumonia Current visit: Yes Status: Acute Assessment and Plan: Assessment Sepsis - SIRS: leukocytosis, tachy, temp (Source: urine/lungs) E. coli bacteremia Escherichia coli UTI Atelectasis doubt HCAP s/p ORIF proximal femur 08/06/17 (Dr Adair) Hyponatremia (135)- POA-resolved Normocytic anemia - POA - likely from recent blood loss assoc with surgery- stable Thrombocytosis - POA Parkinson's Dementia Restless Legs Hypokalemia 08/23/2017 Plan Continue Levaquin for Escherichia coli UTI and bacteremia. We'll continue with Levaquin 750 mg by mouth every other day. She will need a 2 week treatment course. Despite a normal GFR calculation, her creatinine clearance is less than 50. Appetite is improving. Recheck renal panel and CBC tomorrow. DVT prophylaxis with Lovenox DVT Prophylaxis: Lovenox Resuscitation Status: Do Not Resuscitate - Physician Narrative Narrative: Date: 08/24/17 Time: 1254 Hospital Course Summary Disclaimer: The visit summary below is not to be considered part of the above Progress Note. Hospital Course: 08/20/17 Admit, IP - stay expected to exceed two overnights for tx of HCAP/UTI Zosyn, levaquin vanco for HCAP and UTI. Had Rocephin in ER. Duonebs and Budesonide. Dr. Adair contacted and reviewed films, no obvious issues. Will see patient as a courtesy to exclude any surgical concerns. IVF's for sepsis, hyponatremia DVT ppx: heparin Code status: DNR PCP- Dr. Karolyn Barahona 08/20/2017-2:45 PM-I examined the patient independently. I reviewed this chart, the patient history, and the HANDLE BAR ASSEMBLER's/PA's documented findings as above. We discussed and formulated the assessment and plan as above with the additions below.-Dr. Boothe The patient was seen in her room this afternoon. She complains of nausea and not feeling well in general. She has had no vomiting. She denies any shortness of breath. She denies any pain. Her appetite is been poor for a couple of days. She had fever starting the night before last. She has noticed urinary frequency of small amounts but no dysuria. She does complain of restless legs and states that her medication does not work very well. Lab today shows continued elevated white count of 14.4. Bands are 14 down from 17. Urine culture was positive for Escherichia coli. One of 2 blood cultures are positive for Escherichia coli. Sensitivities on both the urine and blood are pending. Temperature was high as 101.6 but is currently 99.8. On exam, she is alert and oriented and in no acute distress. HEENT reveals oropharynx moist. Neck supple. Chest is clear to auscultation. Cardiovascular reveals a regular rate and rhythm. Abdomen is soft and nontender with positive bowel sounds. Extremities are free of edema. Impression and plan Sepsis likely secondary to Escherichia coli UTI and bacteremia Escherichia coli UTI possibly related to recent Askew catheter when hospitalized 2 weeks ago-I doubt she has associated pneumonia. Continue Levaquin for now. Discontinue Rocephin, Vanco, Zosyn. Await sensitivities. If she has continued nausea, consider a different antibiotic other than Levaquin. Is currently dosed at every 48 hours. Recheck lab tomorrow. Regarding poorly controlled restless legs, could increase bedtime dose of equip by 0.5 mg weekly until symptoms are well controlled or when up to maximum dose of 4 mg at bedtime. She currently takes 0.25 mg by mouth when necessary for restless legs up to 5 tablets a day. Hold pantoprazole. Restart if the patient is having GERD or dyspepsia Plan 08/21/2017 Zosyn, levaquin vanco for HCAP and UTI. Had Rocephin in ER. -On 08/20/2017 antibiotics were narrowed to Levaquin only for UTI Escherichia coli and bacteremia. Escherichia coli from UA is sensitive to Levaquin and all other antibiotics tested. Await results of sensitivities on blood culture. Discontinue budesonide and duo nebs. Dr. Adair did see the patient and does not feel that there are any orthopedic concerns. We'll increase activity as tolerated. DC IV fluids when taking by mouth well. Lovenox for DVT prophylaxis. Heparin was discontinued. Check renal panel and CBC tomorrow. Possible discharge back to custodial in the next few days if the patient continues to improve. She will likely need 2 weeks of antibiotics for bacteremia. Increase Requip to 1 mg at at bedtime for restless legs. This can be titrated up at custodial if symptoms are not adequately controlled. Plan 08/22/2017 Continue Levaquin for Escherichia coli UTI and bacteremia. Discussed with pharmacist. We'll recheck renal panel tomorrow. May need to adjust dose for improving renal function. I think she will need 2 weeks of Levaquin. DC IV fluids. Encourage by mouth fluids. Potassium was replaced orally and will recheck tomorrow. Lovenox for DVT prophylaxis Recheck renal panel and CBC tomorrow. Increase Requip to 1.25 mg at bedtime for restless legs. This can be titrated up at custodial if symptoms are not adequately controlled. Likely discharge to custodial in the next 1-2 days.
--- NOTE | 2017-08-24 13:03 | Discharge Summary ---
Discharge Information Date of admission: 08/19/17 21:15 Anticipated date of discharge: 08/24/17 Attending Physician: Jeanette Boothe MD Primary care physician: Karolyn Barahona MD Consults: 08/19/17 22:36 Physician Consult [CONS] Routine Consulting Provider: Ted Adair Reason For Exam: fever , pos top Ordering Provider has Notified Credentialing Assistant: Yes 08/20/17 11:19 Doctor [Physician Consult] [CONS] Routine Consulting Provider: Mariano Rolon Reason For Exam: continued care Ordering Provider has Notified Credentialing Assistant: Yes - Discharge Diagnosis (1) Osteoporosis Status: Chronic (2) Balance disorder Status: Chronic (3) Parkinson disease Status: Acute (4) Dehydration Status: Acute (5) Sepsis Status: Acute (6) UTI (urinary tract infection) Status: Acute (7) Healthcare-associated pneumonia Status: Acute Sepsis - SIRS: leukocytosis, tachy, temp (Source: urine/lungs) E. coli bacteremia Escherichia coli UTI Atelectasis doubt HCAP s/p ORIF proximal femur 08/06/17 (Dr Adair) Hyponatremia (135)- POA-resolved Normocytic anemia - POA - likely from recent blood loss assoc with surgery- stable Thrombocytosis - POA Dementia Restless Legs Hypokalemia Balance disorder (parkinson's disease?) - Laboratory Labs: 08/24/17 04:03 08/24/17 04:03 Laboratory Tests 08/19/17 08/19/17 08/19/17 18:57 18:57 20:15 WBC 14.1 H Hgb 9.2 L Plt Count 478 H D Neutrophils % (Manual) 70.0 H Band Neutrophils % 17.0 H Plasma Lactate 0.7 Ur Specific Potter 1.010 L Urine Protein 1+ A Urine Ketones Trace A Urine Occult Blood 1+ A Urine Nitrate Positive A Ur Leukocyte Esterase 3+ A Urine WBC 50-200 H Urine Bacteria 4+ H 08/19/17 08/20/17 23:15 01:25 WBC Hgb Plt Count Neutrophils % (Manual) Band Neutrophils % Plasma Lactate 1.3 1.1 Ur Specific Potter Urine Protein Urine Ketones Urine Occult Blood Urine Nitrate Ur Leukocyte Esterase Urine WBC Urine Bacteria - Microbiology Urine culture obtained 08/19/2017 reveals greater than 100,000 colony-forming units of Escherichia coli sensitive to all antibiotics tested Blood cultures 2 drawn on 08/19/2017 showed Escherichia coli with the same sensitivity pattern - Radiology Radiology: 08/19/2017 Right femur Findings: Patient has had a side plate and screw fixation of the femoral diaphysis with long screws traversing the distal femoral condyles. There is also left hip arthroplasty with long intramedullary component that passes to about the mid right femoral diaphysis. No definite dislocation. There is a persistent oblique fracture across the mid diaphysis of the femur. There are surgical tables along the medial right thigh. IMPRESSION: Anatomic alignment status post right lower extremity sideplate and screw fixation with right total hip arthroplasty. Date of Exam: 08/24/17 Ordering Provider: Jing Snyder APRN Type of Exam(s): XR femur RT 2V Reason for Exam(s): ORIF right periprosthetic femur fx Indication: ORIF right periprosthetic femur fx PROCEDURE: AP and Lateral views of the Right Femur Encounter: Initial Comparison: August 19, 2017 Findings: Right hip prosthesis again noted. Lateral femoral side plate with multiple screws and cerclage wires is redemonstrated. No evidence of hardware loosening or failure. Stable alignment of the periprosthetic femoral fracture. The skin bossman have been removed. Impression: Findings as above. Date of Exam: 08/19/17 Ordering Provider: Abebe Pizano MD Type of Exam(s): XR chest 2V Reason for Exam(s): fuo Indication: fuo PROCEDURE: XR chest 2V: Encounter: Initial Comparison: None. Findings: There is consolidation in the inferior medial left lung base suspicious for a developing atelectasis and/or pneumonia. No definite pleural effusion. There is mild prominence of the cardiac silhouette. There is pulmonary vascular congestion without definite overt interstitial pulmonary edema. No pneumothorax. No definite acute appearing displaced rib fracture. The trachea is midline. There is mild tortuosity of the descending thoracic aorta. IMPRESSION: Atelectasis and/or pneumonia in the inferior medial left lung base posteriorly without definite pleural effusion. History of Present Illness HPI: This is a 77 y/o female who 2 weeks ago had ORIF of right femur fracture repaired by Dr. Adair. The patient had onset of high fever yesterday. Workup in the ED demonstrates an obvious UTI and CXR suggest a possible left lingular pneumonia. She states that she has a chronic dry cough that has not changed. The patient was admitted for HcAP coverage. The patient does have Parkinson's disease and mild dementia. She was living at home with her prior to her femur fx and has been in PRA at the [facility] since. Objective Vital signs: Temperature 97.5 F 08/24/17 11:20 Pulse Rate 82 08/24/17 11:20 Respiratory Rate 22 08/24/17 11:20 Blood Pressure 119/59 08/24/17 11:20 Pulse Oximetry 100 08/24/17 11:20 Height/Weight/BMI: Height 1.52 m Weight 47.4 kg Body Mass Index 19.6 Hospital Course This is a general summary of the patient's hospital course. For more details refer to the complete medical record. Hospital course: 08/20/17 Admit, IP - stay expected to exceed two overnights for tx of HCAP/UTI Zosyn, levaquin vanco for HCAP and UTI. Had Rocephin in ER. Duonebs and Budesonide. Dr. Adair contacted and reviewed films, no obvious issues. Will see patient as a courtesy to exclude any surgical concerns. IVF's for sepsis, hyponatremia DVT ppx: heparin Code status: DNR PCP- Dr. Karolyn Barahona 08/20/2017-2:45 PM-I examined the patient independently. I reviewed this chart, the patient history, and the [employer]'s/PA's documented findings as above. We discussed and formulated the assessment and plan as above with the additions below.-Dr. Boothe The patient was seen in her room this afternoon. She complains of nausea and not feeling well in general. She has had no vomiting. She denies any shortness of breath. She denies any pain. Her appetite is been poor for a couple of days. She had fever starting the night before last. She has noticed urinary frequency of small amounts but no dysuria. She does complain of restless legs and states that her medication does not work very well. Lab today shows continued elevated white count of 14.4. Bands are 14 down from 17. Urine culture was positive for Escherichia coli. One of 2 blood cultures are positive for Escherichia coli. Sensitivities on both the urine and blood are pending. Temperature was high as 101.6 but is currently 99.8. On exam, she is alert and oriented and in no acute distress. HEENT reveals oropharynx moist. Neck supple. Chest is clear to auscultation. Cardiovascular reveals a regular rate and rhythm. Abdomen is soft and nontender with positive bowel sounds. Extremities are free of edema. Impression and plan Sepsis likely secondary to Escherichia coli UTI and bacteremia Escherichia coli UTI possibly related to recent Askew catheter when hospitalized 2 weeks ago-I doubt she has associated pneumonia. Continue Levaquin for now. Discontinue Rocephin, Vanco, Zosyn. Await sensitivities. If she has continued nausea, consider a different antibiotic other than Levaquin. Is currently dosed at every 48 hours. Recheck lab tomorrow. Regarding poorly controlled restless legs, could increase bedtime dose of equip by 0.5 mg weekly until symptoms are well controlled or when up to maximum dose of 4 mg at bedtime. She currently takes 0.25 mg by mouth when necessary for restless legs up to 5 tablets a day. Hold pantoprazole. Restart if the patient is having GERD or dyspepsia Plan 08/21/2017 Zosyn, levaquin vanco for HCAP and UTI. Had Rocephin in ER. -On 08/20/2017 antibiotics were narrowed to Levaquin only for UTI Escherichia coli and bacteremia. Escherichia coli from UA is sensitive to Levaquin and all other antibiotics tested. Await results of sensitivities on blood culture. Discontinue budesonide and duo nebs. Dr. Adair did see the patient and does not feel that there are any orthopedic concerns. We'll increase activity as tolerated. DC IV fluids when taking by mouth well. Lovenox for DVT prophylaxis. Heparin was discontinued. Check renal panel and CBC tomorrow. Possible discharge back to detention in the next few days if the patient continues to improve. She will likely need 2 weeks of antibiotics for bacteremia. Increase Requip to 1 mg at at bedtime for restless legs. This can be titrated up at detention if symptoms are not adequately controlled. Plan 08/22/2017 Continue Levaquin for Escherichia coli UTI and bacteremia. Discussed with pharmacist. We'll recheck renal panel tomorrow. May need to adjust dose for improving renal function. I think she will need 2 weeks of Levaquin. DC IV fluids. Encourage by mouth fluids. Potassium was replaced orally and will recheck tomorrow. Lovenox for DVT prophylaxis Recheck renal panel and CBC tomorrow. Increase Requip to 1.25 mg at bedtime for restless legs. This can be titrated up at detention if symptoms are not adequately controlled. Likely discharge to detention in the next 1-2 days. 08/24/2017 Plan Continue Levaquin for Escherichia coli UTI and bacteremia. We'll continue with Levaquin 750 mg by mouth every other day. She will need a 2 week treatment course. Despite a normal GFR calculation, her creatinine clearance is less than 50. Plan dismissal to detention unit when prior authorization has been obtained from the patient's insurance She will need to follow-up with Dr. Adair in 6 weeks. She can have her foot flat touch weightbearing for transfers. Otherwise she is nonweightbearing until follow-up with Dr. Adair. Dr Adair's nurse practitioner recommends Lovenox for DVT prophylaxis until she is weightbearing Continue with increased dose of Requip for restless legs Probable discharge tomorrow if insurance approves detention and the patient is continuing to do well 08/25/2017 Patient continues to do well. She is afebrile. She is sleeping well with her increased dose of Requip. She is eating and drinking well. She feels ready for dismissal. On exam she is alert and oriented and in no acute distress. Chest is clear to auscultation. Cardiovascular reveals a regular rate and rhythm. Extremities are free of edema. Impression and plan Dismissed back to detention unit today. She will continue Levaquin 750 mg every other day to complete a two-week course of antibiotics. Her next dose of Levaquin will be due on August 26. Her last dose will be on September 01. Regarding her femur fracture, she can be flat foot touch weightbearing for transfers. She is otherwise nonweightbearing until she follows up with Dr. Adair in 6 weeks. She needs to continue on Lovenox for DVT prophylaxis until she is up and walking. We'll continue with increased dose of Requip 1.25 mg at bedtime for restless legs. She states she is sleeping much better. Time spent with patient: discharge greater than 30 minutes Resuscitation Status: Do Not Resuscitate Discharge Plan - Discharge Disposition Discharge Date: 08/24/17 Disposition: 03 To SNU Not PAC (SNF) *Condition: Stable - Discharge Medications *Discharge Medications: New Acetaminophen [Tylenol] 500 mg PO Q5H PRN tablet PRN Reason: Discomfort Acidoph/L.bulg/Bif.b/S.thermop [Bacid Caplet] 2 cap PO TIDWM 14 Days tablet Enoxaparin Sodium [Lovenox] 40 mg SQ DAILY syringe Levofloxacin [Levaquin] 750 mg PO Q2D #4 tablet Ropinirole [Requip] 1.25 mg PO HS tablet Continue Cholecalciferol (Vitamin D3) [Vitamin D3] 1,000 unit PO Q2D #0 Selenium 200 mcg PO Q2D Curcumin 1 tab PO Q2D Mag Hydrox/Aluminum Hyd/Simeth [Alum-Mag Hydroxide-Simeth Liq] 30 ml PO Q4H PRN PRN Reason: Epigastric Distress Peg 3350 238 G Bottle [Miralax] 17 gm PO BID Tramadol [Ultram] 50 mg PO HS PRN PRN Reason: Pain Ropinirole [Requip] 0.25 mg PO TID PRN PRN Reason: Restlessness Senna + Docusate [Senna Plus Tablet] 2 tab PO BID PRN PRN Reason: Constipation Peg 3350 238 G Bottle [Miralax] 17 gm PO DAILY PRN PRN Reason: Constipation Discontinued Ropinirole HCl 0.75 mg PO HS - Discharge Packet/Instructions *Diet: diet as tolerated *Activity: Flat foot touch for transfers otherwise non-weight bearing. *Pain Management/Treatment: Tylenol and Ultram as needed *Wound Care: Sutures removed 08/24/2017, patient may shower, no dressing required. Notify ortho clinic of signs/symptoms of infection at surgical incision (erythema or drainage) Additional Instructions: The patient will need to stay on Lovenox for DVT prophylaxis until she is cleared to be up walking by Dr. Adair. For now she is flatfoot weightbearing for transfers only *Expected Signs/Symptoms: Mild fatigue *Notify Physician if: Fever, confusion, urinary symptoms, or any other concerning symptoms *During Business Hours Contact: Call Dr. Adair's office regarding orthopedic issues, call Dr. Karolyn Barahona regarding medical issues *After Business Hours Contact: Call [phone] to have your doctor paged *Pending Lab/Results: No Pending Lab - Referrals/Follow Up *Referrals/Follow Up: Jing Snyder APRN [Advanced Practice Nurse] - 09/07/17 1:30 pm Karolyn Barahona MD [Primary Care Provider] - 1 Week - Patient Handouts Patient Handouts: Urinary Tract Infection in Women (GEN), Sepsis (GEN) - Dismissal Complete Discharge Instructions are:: Complete Physician Narrative - Narrative Attestation Narrative: Date: 08/24/17 Time: 3462
--- NOTE | 2017-08-24 13:22 | Orthopedic Progress Note ---
Date: Date: 08/24/17 Time: 131 Subjective/Severity of Illness: Mrs Rae is sitting up in the chair this morning brushing her teeth. Denies any pain with her right leg. "feeling much better" from last week. Anticipated discharge today. She had 2 week follow up scheduled outpatient today in ortho clinic. Exam - Constitutional Vital Signs: Temperature 97.5 F 08/24/17 11:20 Pulse Rate 82 08/24/17 11:20 Respiratory Rate 22 08/24/17 11:20 Blood Pressure 119/59 08/24/17 11:20 Pulse Oximetry 100 08/24/17 11:20 General: cooperative, no acute distress, frail appearing Nutritional Appearance: thin Orientation: alert (not oriented to time or place.), awake Limitations: altered mental status - RLE Postoperative Appearance: surgical incision healing without complication ( bossman removed), extremity compartments are soft and nontender, neurovascullary intact to extremities Skin: no rashes or lesions noted Neurological: no deficits Vascular: dorsalis pedis pulse within normal limits - Respiratory Respiratory Exam: non-labored - Cardiac Cardiovascular exam: pedal pulses intact - Labs Result Diagrams: 08/24/17 04:03 08/24/17 04:03 Abnormal lab results 08/24/17 08/24/17 Range/Units 04:03 04:03 RBC 2.99 L (4.00-5.20) M/MM3 Hgb 9.3 L (12-16) GM/DL Hct 29.3 L (36-46) % RDW Std Deviation 54.7 H (36.9-50.2) FL Plt Count 477 H (130-400) T/MM3 Monocytes % (Manual) 11.0 H (0-9.0) % Basophils % (Manual) 3.0 H (0-2) % Potassium 3.4 L (3.6-5) MEQ/L Chloride 110 H (98-107) MEQ/L Creatinine 0.5 L (0.7-1.2) mg/dL H & H 08/20/17 08/21/17 08/22/17 Range/Units 04:07 07:36 04:40 Hgb 8.7 L 8.9 L 8.4 L (12-16) GM/DL Hct 27.3 L 27.9 L 27.0 L (36-46) % 08/23/17 08/24/17 Range/Units 04:26 04:03 Hgb 9.2 L 9.3 L (12-16) GM/DL Hct 29.0 L 29.3 L (36-46) % Orthopedic Assessment and Plan (1) S/P ORIF (open reduction internal fixation) fracture Status: Acute Problem Details: S/P ORIF Right periprosthetic femur fracture Assessment and Plan: PT/OT, patient non-weight bearing, may use flat foot for transfers to chair for 6 weeks post op Bossman removed today, repeat films show stable ORIF right periprosthetic femur fracture. Follow up in 2 weeks outpatient in ortho clinic. Hospital Course Summary Disclaimer: The visit summary below is not to be considered part of the above Progress Note. Hospital Course: 08/20/17 Admit, IP - stay expected to exceed two overnights for tx of HCAP/UTI Zosyn, levaquin vanco for HCAP and UTI. Had Rocephin in ER. Duonebs and Budesonide. Dr. Adair contacted and reviewed films, no obvious issues. Will see patient as a courtesy to exclude any surgical concerns. IVF's for sepsis, hyponatremia DVT ppx: heparin Code status: DNR PCP- Dr. Karolyn Barahona 08/20/2017-2:45 PM-I examined the patient independently. I reviewed this chart, the patient history, and the C[employer]'s/PA's documented findings as above. We discussed and formulated the assessment and plan as above with the additions below.-Dr. Boothe The patient was seen in her room this afternoon. She complains of nausea and not feeling well in general. She has had no vomiting. She denies any shortness of breath. She denies any pain. Her appetite is been poor for a couple of days. She had fever starting the night before last. She has noticed urinary frequency of small amounts but no dysuria. She does complain of restless legs and states that her medication does not work very well. Lab today shows continued elevated white count of 14.4. Bands are 14 down from 17. Urine culture was positive for Escherichia coli. One of 2 blood cultures are positive for Escherichia coli. Sensitivities on both the urine and blood are pending. Temperature was high as 101.6 but is currently 99.8. On exam, she is alert and oriented and in no acute distress. HEENT reveals oropharynx moist. Neck supple. Chest is clear to auscultation. Cardiovascular reveals a regular rate and rhythm. Abdomen is soft and nontender with positive bowel sounds. Extremities are free of edema. Impression and plan Sepsis likely secondary to Escherichia coli UTI and bacteremia Escherichia coli UTI possibly related to recent Askew catheter when hospitalized 2 weeks ago-I doubt she has associated pneumonia. Continue Levaquin for now. Discontinue Rocephin, Vanco, Zosyn. Await sensitivities. If she has continued nausea, consider a different antibiotic other than Levaquin. Is currently dosed at every 48 hours. Recheck lab tomorrow. Regarding poorly controlled restless legs, could increase bedtime dose of equip by 0.5 mg weekly until symptoms are well controlled or when up to maximum dose of 4 mg at bedtime. She currently takes 0.25 mg by mouth when necessary for restless legs up to 5 tablets a day. Hold pantoprazole. Restart if the patient is having GERD or dyspepsia Plan 08/21/2017 Zosyn, levaquin vanco for HCAP and UTI. Had Rocephin in ER. -On 08/20/2017 antibiotics were narrowed to Levaquin only for UTI Escherichia coli and bacteremia. Escherichia coli from UA is sensitive to Levaquin and all other antibiotics tested. Await results of sensitivities on blood culture. Discontinue budesonide and duo nebs. Dr. Adair did see the patient and does not feel that there are any orthopedic concerns. We'll increase activity as tolerated. DC IV fluids when taking by mouth well. Lovenox for DVT prophylaxis. Heparin was discontinued. Check renal panel and CBC tomorrow. Possible discharge back to nursing home in the next few days if the patient continues to improve. She will likely need 2 weeks of antibiotics for bacteremia. Increase Requip to 1 mg at at bedtime for restless legs. This can be titrated up at nursing home if symptoms are not adequately controlled. Plan 08/22/2017 Continue Levaquin for Escherichia coli UTI and bacteremia. Discussed with pharmacist. We'll recheck renal panel tomorrow. May need to adjust dose for improving renal function. I think she will need 2 weeks of Levaquin. DC IV fluids. Encourage by mouth fluids. Potassium was replaced orally and will recheck tomorrow. Lovenox for DVT prophylaxis Recheck renal panel and CBC tomorrow. Increase Requip to 1.25 mg at bedtime for restless legs. This can be titrated up at nursing home if symptoms are not adequately controlled. Likely discharge to nursing home in the next 1-2 days.
[2017-08-24] MEDS: ROPINIROLE 1 MG TABLET PO SCH (20:11)
[2017-08-24] MEDS: TRAMADOL 50 MG TABLET PO SCH (20:11)
--- NOTE | 2017-08-24 20:32 | Progress Note ---
- Date 08/24/17 Subjective: The patient was seen earlier today in her room. She states she is feeling that her. She is eating and drinking well. She slept very well last night. She was seen by the orthopedic PA this morning and her bossman were removed. X-ray was obtained of her leg which shows her fracture repair is in good position. Plan was for discharge back to the retirement unit today, but we had not received preauthorization from the patient's insurance company. Objective Vital signs: Temperature 99 F 08/24/17 19:27 Pulse Rate 88 08/24/17 19:27 Respiratory Rate 18 08/24/17 19:27 Blood Pressure 158/73 H 08/24/17 19: Pulse Oximetry 99 08/24/17 19:27 Height/Weight/BMI: Height 1.52 m Weight 47.4 kg Body Mass Index 19.6 Comments: GEN-alert, oriented, no acute distress CV-regular rate and rhythm CHEST-clear to auscultation bilaterally ABD-soft, nontender with positive bowel sounds -no Askew EXT-trace edema NEURO-no focal deficits SKIN-warm and dry Results - Labs CBC & Chem 7: 08/24/17 04:03 08/24/17 04:03 - Impressions PROCEDURE: AP and Lateral views of the Right Femur Comparison: August 19, 2017 Findings: Right hip prosthesis again noted. Lateral femoral side plate with multiple screws and cerclage wires is redemonstrated. No evidence of hardware loosening or failure. Stable alignment of the periprosthetic femoral fracture. The skin bossman have been removed. Impression: Findings as above. Assessment and Plan (1) Osteoporosis Current visit: No Status: Chronic (2) Balance disorder Current visit: No Status: Chronic (3) Parkinson disease Current visit: No Status: Acute (4) Dehydration Current visit: No Status: Acute (5) Sepsis Current visit: Yes Status: Acute (6) UTI (urinary tract infection) Current visit: Yes Status: Acute (7) Healthcare-associated pneumonia Current visit: Yes Status: Acute Assessment and Plan: Assessment Sepsis - SIRS: leukocytosis, tachy, temp (Source: urine/lungs) E. coli bacteremia Escherichia coli UTI Atelectasis doubt HCAP s/p ORIF proximal femur 08/06/17 (Dr Adair) Hyponatremia (135)- POA-resolved Normocytic anemia - POA - likely from recent blood loss assoc with surgery- stable Thrombocytosis - POA Parkinson's Dementia Restless Legs Hypokalemia 08/24/2017 Plan Continue Levaquin for Escherichia coli UTI and bacteremia. We'll continue with Levaquin 750 mg by mouth every other day. She will need a 2 week treatment course. Despite a normal GFR calculation, her creatinine clearance is less than 50. Plan dismissal to retirement unit when prior authorization has been obtained from the patient's insurance She will need to follow-up with Dr. Adair in 6 weeks. She can have her foot flat touch weightbearing for transfers. Otherwise she is nonweightbearing until follow-up with Dr. Adair. Dr Adair's nurse practitioner recommends Lovenox for DVT prophylaxis until she is weightbearing Continue with increased dose of Requip for restless legs Probable discharge tomorrow if insurance approves retirement and the patient is continuing to do well - Physician Narrative Narrative: Date: 08/24/17 Time: 2028 Hospital Course Summary Disclaimer: The visit summary below is not to be considered part of the above Progress Note. Hospital Course: 08/20/17 Admit, IP - stay expected to exceed two overnights for tx of HCAP/UTI Zosyn, levaquin vanco for HCAP and UTI. Had Rocephin in ER. Duonebs and Budesonide. Dr. Adair contacted and reviewed films, no obvious issues. Will see patient as a courtesy to exclude any surgical concerns. IVF's for sepsis, hyponatremia DVT ppx: heparin Code status: DNR PCP- Dr. Karolyn Barahona 08/20/2017-2:45 PM-I examined the patient independently. I reviewed this chart, the patient history, and the CLINICAL PHARMACY MANAGER's/PA's documented findings as above. We discussed and formulated the assessment and plan as above with the additions below.-Dr. Boothe The patient was seen in her room this afternoon. She complains of nausea and not feeling well in general. She has had no vomiting. She denies any shortness of breath. She denies any pain. Her appetite is been poor for a couple of days. She had fever starting the night before last. She has noticed urinary frequency of small amounts but no dysuria. She does complain of restless legs and states that her medication does not work very well. Lab today shows continued elevated white count of 14.4. Bands are 14 down from 17. Urine culture was positive for Escherichia coli. One of 2 blood cultures are positive for Escherichia coli. Sensitivities on both the urine and blood are pending. Temperature was high as 101.6 but is currently 99.8. On exam, she is alert and oriented and in no acute distress. HEENT reveals oropharynx moist. Neck supple. Chest is clear to auscultation. Cardiovascular reveals a regular rate and rhythm. Abdomen is soft and nontender with positive bowel sounds. Extremities are free of edema. Impression and plan Sepsis likely secondary to Escherichia coli UTI and bacteremia Escherichia coli UTI possibly related to recent Askew catheter when hospitalized 2 weeks ago-I doubt she has associated pneumonia. Continue Levaquin for now. Discontinue Rocephin, Vanco, Zosyn. Await sensitivities. If she has continued nausea, consider a different antibiotic other than Levaquin. Is currently dosed at every 48 hours. Recheck lab tomorrow. Regarding poorly controlled restless legs, could increase bedtime dose of equip by 0.5 mg weekly until symptoms are well controlled or when up to maximum dose of 4 mg at bedtime. She currently takes 0.25 mg by mouth when necessary for restless legs up to 5 tablets a day. Hold pantoprazole. Restart if the patient is having GERD or dyspepsia Plan 08/21/2017 Zosyn, levaquin vanco for HCAP and UTI. Had Rocephin in ER. -On 08/20/2017 antibiotics were narrowed to Levaquin only for UTI Escherichia coli and bacteremia. Escherichia coli from UA is sensitive to Levaquin and all other antibiotics tested. Await results of sensitivities on blood culture. Discontinue budesonide and duo nebs. Dr. Adair did see the patient and does not feel that there are any orthopedic concerns. We'll increase activity as tolerated. DC IV fluids when taking by mouth well. Lovenox for DVT prophylaxis. Heparin was discontinued. Check renal panel and CBC tomorrow. Possible discharge back to retirement in the next few days if the patient continues to improve. She will likely need 2 weeks of antibiotics for bacteremia. Increase Requip to 1 mg at at bedtime for restless legs. This can be titrated up at retirement if symptoms are not adequately controlled. Plan 08/22/2017 Continue Levaquin for Escherichia coli UTI and bacteremia. Discussed with pharmacist. We'll recheck renal panel tomorrow. May need to adjust dose for improving renal function. I think she will need 2 weeks of Levaquin. DC IV fluids. Encourage by mouth fluids. Potassium was replaced orally and will recheck tomorrow. Lovenox for DVT prophylaxis Recheck renal panel and CBC tomorrow. Increase Requip to 1.25 mg at bedtime for restless legs. This can be titrated up at retirement if symptoms are not adequately controlled. Likely discharge to retirement in the next 1-2 days. 08/23/2017 Plan Continue Levaquin for Escherichia coli UTI and bacteremia. We'll continue with Levaquin 750 mg by mouth every other day. She will need a 2 week treatment course. Despite a normal GFR calculation, her creatinine clearance is less than 50. Appetite is improving. Recheck renal panel and CBC tomorrow. DVT prophylaxis with Lovenox 08/24/2017 Plan Continue Levaquin for Escherichia coli UTI and bacteremia. We'll continue with Levaquin 750 mg by mouth every other day. She will need a 2 week treatment course. Despite a normal GFR calculation, her creatinine clearance is less than 50. Plan dismissal to retirement unit when prior authorization has been obtained from the patient's insurance She will need to follow-up with Dr. Adair in 6 weeks. She can have her foot flat touch weightbearing for transfers. Otherwise she is nonweightbearing until follow-up with Dr. Adair. Dr Adair's nurse practitioner recommends Lovenox for DVT prophylaxis until she is weightbearing Continue with increased dose of Requip for restless legs Probable discharge tomorrow if insurance approves retirement and the patient is continuing to do well
[2017-08-25 08:18] VITALS: RESP 16
[2017-08-25] MEDS: LACTOBACILLUS (15B cfu) CAPSULE PO SCH ×2 (08:24→13:09)
[2017-08-25] MEDS: ENOXAPARIN 40 MG/0.4 ML INJECTION SQ SCH (08:25)
[2017-08-25 12:02] VITALS: BP 135/65; PULSE 76; TEMP 96; O2SAT 98
--- NOTE | 2017-08-25 13:55 | Extended Care Facility Orders ---
Admission Orders Allergies/Adverse Reactions: Allergies lorazepam Adverse Reaction (Intermediate, Verified 08/19/17 18:35) Confusion Admitting Diagnosis: Escherichia coli UTI and bacteremia, recent ORIF right periprosthetic femur fracture by Dr. dAair on 08/06/2017 Admitting Physician: Jeanette Boothe MD Attending Physician: Jeanette Boothe MD Code Status: Do Not Resuscitate Anticiapted Length of Stay: 30 days or less Rehab Potential: good Rehab Prognosis: good Diet: 08/19/17 Breakfast Regular Diet [DIET] Diet Modifications: Wound/Incision Care: Sutures were removed on 08/24/2017. The patient may shower. No dressing required. Notify the orthopedic clinic of signs or symptoms of infection at the surgical incision such as redness or drainage May use Facility Protocol or Standing Orders: Yes May have flu vaccine: Yes Evaluations/Treatment: PT, OT Long Term Certification: I certify that SNF services are required to be given on an Inpatient basis because of the patients need for fdc care on a continuing basis for the condition(s) for which he/she received inpatient hospital services prior to his/her transfer to the SNF. SNF inpatient care is necessary for the following reasons Indication for Long Term: Wound Care/Assessment, Med Admininistration - Additional Information In Event of Arrest: Do Not Start CPR Resident is Aware of Diagnosis: Yes Referrals: Karolyn Barahona MD [Primary Care Provider] - 1 Week Jing Snyder APRN [Advanced Practice Nurse] - 09/07/17 1:30 pm
== END 2017-08-25 14:20 | DRG 871 ==
LOC: ED 18:21 → EDHOLD 21:15 → MED 22:05 → EDHOLD 22:05
PROVIDERS: ADMIT Emergency Medicine; ATTEND Internal Medicine